=== PATIENT | female | born 1940 | race Caucasian/White ===

== ENCOUNTER 2017-04-12 00:36 | Inpatient (IN) | payer MEDICARE ==
[2017-04-12] VITALS (15 sets, daily range): BP systolic 125–202; BP diastolic 57–95; PULSE 66–148; RESP 16–30; TEMP 97.4–99.1; O2SAT 91–100
[~2017-04-12] VITALS: Ht 139.7 cm; Wt 90.5 kg
[~2017-04-12 00:36] MED LIST: ASPI81 PO; CLON-481 PO; GLIM2TAB PO; METO50TA PO; OMEP20CA5 PO; RALO1TAB13 PO; ROSU40 PO
[2017-04-12] MEDS ORDERED: RESP: ALBUTEROL 2.5 MG/3 ML NEB (SCH) INH ONE (01:00)
[2017-04-12] MEDS ORDERED: SODIUM CHLORID 0.9% 500 ML INJ 500 ML IV ONE (01:00)
[2017-04-12 01:24] LABS: AUTOMATED NEUTROPHIL # 5.4 TH/MM3 (1.8-7.7); BASOPHIL % 0.5 % (0.0-2.0); EOSINOPHIL % 0.1 % (0.0-4.0); HEMATOCRIT 41.8 % (35.0-46.0); HEMO FLAGS DIFF FINAL; LYMPH % 9.1 % (9.0-44.0); LYMPHOCYTE # 0.6 TH/MM3 (1.0-4.8); MEAN CELL VOLUME 92.4 FL (80.0-100.0); MEAN CORPUSCULAR HEMOGLOBIN 30.4 PG (27.0-34.0); MEAN CORPUSCULAR HGB CONC 32.9 % (32.0-36.0); MONO % 10.9 % (0.0-8.0); NEUT % 79.4 % (16.0-70.0); PLATELET COUNT 276 TH/MM3 (150-450); RED BLOOD COUNT 4.52 MIL/MM3 (4.00-5.30); RED CELL DISTRIBUTION WIDTH 15.1 % (11.6-17.2); WHITE BLOOD COUNT 6.9 TH/MM3 (4.0-11.0)
[2017-04-12 01:43] LABS: PROTHROMBIN TIME - PATIENT 10.6 SEC (9.8-11.6)
[2017-04-12 01:50] LABS: ALT (GPT) 19 U/L (10-53); ANION GAP 13 MEQ/L (5-15); AST (GOT) 30 U/L (15-37); BICARBONATE 19.2 MEQ/L (21.0-32.0); BLOOD UREA NITROGEN 16 MG/DL (7-18); CHLORIDE 104 MEQ/L (98-107); GLOMERULAR FILTRATION RATE 23 ML/MIN (>89); POTASSIUM 4.2 MEQ/L (3.5-5.1); SODIUM (NA) 136 MEQ/L (136-145)
[2017-04-12 01:51] LABS: ALKALINE PHOSPHATASE 80 U/L (45-117); TOTAL BILIRUBIN ADULT 0.5 MG/DL (0.2-1.0)
[2017-04-12] MEDS ORDERED: DILTIAZEM HCL 25 MG/5 ML VIAL IV PUSH ONE (02:00)
[2017-04-12] MEDS ORDERED: DILTIAZEM HCL 25 MG/5 ML VIAL IV ONE (02:30)
--- NOTE | 2017-04-12 02:34 | RADRPT ---
EXAM DATE/TIME: 04/12/2017 01:34 [place] COMPARISON: No previous studies available for comparison. INDICATIONS : Cough and congestion x 1 week. MEDICAL HISTORY : Diabetes mellitus type II. Hypercholesterolemia. Hypertension. Renal failure, 1 Kidney, Dialysis, CVA SURGICAL HISTORY : Bilateral carotid endardectomy ENCOUNTER: Initial ACUITY: 1 week PAIN SCORE: 6/10 LOCATION: Bilateral chest FINDINGS: PA and lateral views of the chest demonstrate the lungs to be symmetrically aerated without evidence of mass, infiltrate or effusion. The cardiomediastinal contours are unremarkable. Osseous structure s are intact. There are multiple overlying electrocardiogram leads and oxygen tubing. CONCLUSION: No acute disease. There is no evidence of pneumonia. Angelito Walker MD on April 12, 2017 at 2:32 Board Certified Radiologist. This report was verified electronically.
[2017-04-12] MEDS ORDERED: guaiFENesin/CODEINE SYRUP 200 MG/20 MG/10 ML CUP PO ONE (03:00)
[2017-04-12] MEDS ORDERED: SODIUM CHLOR 0.9% 1000 ML INJ 1,000 ML IV ONE (03:00)
[2017-04-12] MEDS: DILTIAZEM INJ 125 MG in SODIUM CHLORIDE 0.9% INJ 100 ML IV PRN ×3 (03:57→22:00)
--- NOTE | 2017-04-12 05:10 | PD ---
HPI Chief Complaint: Cold / Flu Symptoms Time Seen by Provider: 00:52 Travel History International Travel<30 days: No Contact w/Intl Traveler<30days: No Traveled to known affect area: No History of Present Illness HPI Patient is a 76-year-old female who comes in complaining of cough and shortness of breath. She says she has had a cough for the past week. She denies any fever. She says it's getting worse and she is having difficulty breathing. She denies any chest pain. She says she has not really been eating very much because she is coughing so hard that she vomits. She denies any recent travel. She denies any leg pain or swelling. She denies any history of blood clots. She has mostly been using cough drops without much relief. [facility] Past Medical History Asthma: No Blood Disorders: No Cancer: No Cardiac Catheterization: Yes (stent in neck) Cardiovascular Problems: Yes ("LEFT CAROTID STENT DONE BY ") High Cholesterol: Yes COPD: No Cerebrovascular Accident: Yes (LEFT SIDE WEAKNESS) Diabetes: Yes Patient Takes Glucophage: Yes Dialysis: Yes (TU,TR,SA) Diminished Hearing: No Endocrine: Yes Gastrointestinal Disorders: Yes GERD: Yes Glaucoma: No Genitourinary: Yes (ONLY 1 KIDNEY) Hepatitis: No Hiatal Hernia: No Hypertension: Yes Kidney Stones: Yes (LITHOTRIPSY) Musculoskeletal: No Psychiatric: No Respiratory: No Renal Failure: Yes (HEMODIALYSIS) Thyroid Disease: No Menopausal: Yes Past Surgical History Body Medical Devices: VAS CATH Cardiac Surgery: Yes (aniceto carotid endartectomy) Eye Surgery: Yes (CATARACT BILAT EYE) Genitourinary Surgery: Yes (INSERTION STENT LEFT KIDNEY; REMOVAL STENT) Pacemaker: No Other Surgery: Yes (BILATERAL CAROTID ENDARTERECTOMY.) Social History Alcohol Use: No Tobacco Use: No Substance Use: No Allergies-Medications (Allergen,Severity, Reaction): Coded Allergies: niacin (Unverified Allergy, Mild, HIVES, ITCHING, 04/12/17) adhesive (Unverified Allergy, Unknown, 04/12/17) alendronate sodium (Unverified Allergy, Unknown, 04/12/17) calcitonin (Unverified Allergy, Unknown, 04/12/17) Reported Meds & Prescriptions Reported Meds & Active Scripts Active Active Prescriptions or Reported Medications Unobtainable Review of Systems Except as stated in HPI: all other systems reviewed are Neg General / Constitutional: No: Fever, Chills HENT: No: Headaches, Lightheadedness Cardiovascular: No: Chest Pain or Discomfort Respiratory: Positive: Cough, Shortness of Breath Gastrointestinal: No: Nausea, Vomiting Genitourinary: No: Dysuria Musculoskeletal: No: Edema, Pain Neurologic: No: Weakness, Dizziness Physical Exam Narrative GENERAL: Awake and alert, in no acute distress. SKIN: Focused skin assessment warm/dry. HEAD: Atraumatic. Normocephalic. EYES: Pupils equal and round. No scleral icterus. ENT: Mucous membranes pink and moist. NECK: Trachea midline. No JVD. CARDIOVASCULAR: Tachycardia. No murmur appreciated. RESPIRATORY: Mild tachypnea. Clear to auscultation. Breath sounds equal bilaterally. GASTROINTESTINAL: Abdomen soft, non-tender, nondistended. MUSCULOSKELETAL: No obvious deformities. No clubbing. No cyanosis. No edema. No calf tenderness. NEUROLOGICAL: Awake and alert. No obvious cranial nerve deficits. Motor grossly within normal limits. Normal speech. PSYCHIATRIC: Appropriate mood and affect; insight and judgment normal. Data Data Last Documented VS Vital Signs Date Time Temp Pulse Resp B/P (MAP) Pulse Ox O2 Delivery O2 Flow Rate FiO2 04/12/17 05:09 130 28 168/72 (104) 96 Nasal Cannula 3.00 04/12/17 00:42 97.4 Orders Orders Complete Blood Count With Diff (04/12/17 00:56) Comprehensive Metabolic Panel (04/12/17 00:56) B-Type Natriuretic Peptide (04/12/17 00:56) Act Partial Throm Time (Ptt) (04/12/17 00:56) Prothrombin Time / Inr (Pt) (04/12/17 00:56) Troponin I (04/12/17 00:56) Iv Access Insert/Monitor (04/12/17 00:56) Electrocardiogram (04/12/17 00:56) Ecg Monitoring (04/12/17 00:56) Oximetry (04/12/17 00:56) Oxygen Administration (04/12/17 00:56) Chest, Pa & Lat (04/12/17 00:56) Sodium Chloride 0.9% Flush (Ns Flush) (04/12/17 01:00) Albuterol Neb (Albuterol Neb) (04/12/17 01:00) Sodium Chlorid 0.9% 500 Ml Inj (Ns 500 M (04/12/17 01:00) Diltiazem Inj (Cardizem Inj) (04/12/17 02:00) Diltiazem Inj (Cardizem Inj) (04/12/17 02:30) Sodium Chlor 0.9% 1000 Ml Inj (Ns 1000 M (04/12/17 03:00) Guaifen-Cod 200-20 Mg/10ml Liq (Robituss (04/12/17 03:00) Vital Signs (Adult) Q15MX4,Q4H (04/12/17 03:01) Cook Helper Dessert / Telemetry ALBERTO.Q8H (04/12/17 03:01) Cardiac Rhythm ALBERTO.Q8H (04/12/17 03:01) Notify Dr: Other (04/12/17 03:01) Diltiazem Inj (Cardizem Inj) (04/12/17 03:15) Ventilation & Perfusion Scan (04/12/17 ) Admit Order (Ed Use Only) (04/12/17 ) Digoxin Inj (Lanoxin Inj) (04/12/17 09:00) Enoxaparin Inj (Lovenox Inj) (04/12/17 05:30) Labs Laboratory Tests Test 04/12/17 01:10 White Blood Count 6.9 TH/MM3 Red Blood Count 4.52 MIL/MM3 Hemoglobin 13.7 GM/DL Hematocrit 41.8 % Mean Corpuscular Volume 92.4 FL Mean Corpuscular Hemoglobin 30.4 PG Mean Corpuscular Hemoglobin Concent 32.9 % Red Cell Distribution Width 15.1 % Platelet Count 276 TH/MM3 Mean Platelet Volume 7.7 FL Neutrophils (%) (Auto) 79.4 % Lymphocytes (%) (Auto) 9.1 % Monocytes (%) (Auto) 10.9 % Eosinophils (%) (Auto) 0.1 % Basophils (%) (Auto) 0.5 % Neutrophils # (Auto) 5.4 TH/MM3 Lymphocytes # (Auto) 0.6 TH/MM3 Monocytes # (Auto) 0.7 TH/MM3 Eosinophils # (Auto) 0.0 TH/MM3 Basophils # (Auto) 0.0 TH/MM3 CBC Comment DIFF FINAL Differential Comment Prothrombin Time 10.6 SEC Prothromb Time International Ratio 1.0 RATIO Activated Partial Thromboplast Time 26.0 SEC Blood Urea Nitrogen 16 MG/DL Creatinine 2.05 MG/DL Random Glucose 121 MG/DL Total Protein 8.5 GM/DL Albumin 3.5 GM/DL Calcium Level 8.8 MG/DL Alkaline Phosphatase 80 U/L Aspartate Amino Transf (AST/SGOT) 30 U/L Alanine Aminotransferase (ALT/SGPT) 19 U/L Total Bilirubin 0.5 MG/DL Sodium Level 136 MEQ/L Potassium Level 4.2 MEQ/L Chloride Level 104 MEQ/L Carbon Dioxide Level 19.2 MEQ/L Anion Gap 13 MEQ/L Estimat Glomerular Filtration Rate 23 ML/MIN Troponin I 0.03 NG/ML B-Type Natriuretic Peptide 73 PG/ML [facility] Medical Decision Making Medical Screen Exam Complete: Yes Emergency Medical Condition: Yes Medical Record Reviewed: Yes Interpretation(s) ECG shows sinus tachycardia at 144 possible atrial flutter Differential Diagnosis PE versus pneumonia versus URI versus a flutter with RVR versus electrolyte abnormality Narrative Course Patient is a 76-year-old female comes in complaining of cough and shortness of breath. She is found to be very tachycardic. IV established, labs sent. Labs show a creatinine of 2.05, this is old. Chest x-ray performed shows no acute abnormalities. Patient given IV fluids. She had no improvement of her tachycardia. Given a dose of Cardizem with mild improvement of her tachycardia. Given second dose and started on a drip. She was also given a dose of guaifenesin with codeine. This helped her cough, but tachycardia persisted. Patient will require rule out for PE. VQ scan ordered. I spoke with Dr. Carey regarding the patient who suggests covering her with Lovenox and giving her dose of digoxin. Patient admitted for further management. Diagnosis Primary Impression: Tachycardia Additional Impression: Cough Admitting Information Admitting Physician Requests: Admit Scripts Unable to Obtain Active Prescriptions or Reported Meds Sharron Martinez MD Apr 12, 2017 05:10
[2017-04-12] MEDS ORDERED: ENOXAPARIN SODIUM 40 MG/0.4 ML SYRINGE SQ ONE (05:30)
[2017-04-12] MEDS ORDERED: cefTRIAXone INJ 1,000 MG in SODIUM CHLORIDE 0.9% INJ 100 ML IV ONE (07:30)
[2017-04-12] MEDS ORDERED: ASPI81CH CHEW (07:58)
[2017-04-12] MEDS ORDERED: GLIM2TAB PO (07:58)
[2017-04-12] MEDS ORDERED: CLON0.3T PO (07:58)
[2017-04-12] MEDS ORDERED: RALO1TAB PO (07:58)
[2017-04-12] MEDS ORDERED: ROSU1TAB10 PO (07:58)
[2017-04-12] MEDS ORDERED: VITA1000 PO (07:58)
[2017-04-12] MEDS ORDERED: METO25TA3 PO (07:58)
--- NOTE | 2017-04-12 07:59 | HHI.HP ---
HPI Service [facility] Hospitalists Primary Care Physician Reginaldo Carey MD, PhD Admission Diagnosis Tachycardia, r/o PE, tachypnea Chief Complaint: SOB, cough Travel History International Travel<30 Days: No Contact w/Intl Traveler <30 Da: No Traveled to Known Affected Are: No Sepsis Criteria Multiple Organ Dysfunction Syn: Evidence -2 organs failing History of Present Illness Ms. Gary is a pleasant 76 y/o WF with HTN, hyperlipidemia, diabetes and CKD stage 4, who [place] [facility] with complaints of worsening SOB and cough. She reports that around 1 week ago she developed sinus congestion, runny nose and a nonproductive cough. This progressively worsened over the last week and she has been feeling more SOB. Her cough has been worsening to the point where she is dry heaving when she coughs. She has not been eating much but has been drinking plenty of fluids. She denies any cough related to food or fluid intake or any difficulty swallowing. She has tried OTC Mucinex and cough drops without any relief. She denies any fevers or chills. Her cough and SOB worsened yesterday and this prompted her to go to the ED for further evaluation. In the ED she was noted to be tachycardic with HR in the 130 -140s upon arrival. Pt was given IV Cardizem with some improvement but her tachycardia did not resolve and she was started on Cardizem gtt. She appears to be in sinus tachycardia on telemetry. She normally takes Metoprolol 25mg po BID at home and states that she has not missed any doses. Her labs in the ED noted a normal WBC count of 6, BNP was 73. Her Cr is slightly higher than her baseline which has been around 1.7 to 1.8 for the last several months. CXR did not reveal any acute cardio or pulmonary disease. She denies any chest pain, palpitations, fevers/chills, dizziness, weakness. She has a hx of tobacco use, smoked 1/2ppd x 45 years, but denies any diagnosis of COPD. Denies any hx of CHF or CAD. Review of Systems Constitutional: DENIES: Diaphoretic episodes, Fever, Chills, Dizziness Eyes: DENIES: Vision loss Ears, nose, mouth, throat: COMPLAINS OF: Running Nose, Sinus Pain, DENIES: Hearing loss Respiratory: COMPLAINS OF: Cough, Shortness of breath, DENIES: Sputum production Cardiovascular: DENIES: Chest pain, Palpitations, Dyspnea on Exertion, Lower Extremity Edema Gastrointestinal: DENIES: Abdominal pain, Diarrhea, Nausea, Vomiting Genitourinary: DENIES: Urinary incontinence, Urgency, Hematuria Musculoskeletal: DENIES: Back pain, Neck pain Integumentary: DENIES: Rash Neurologic: DENIES: Headache Psychiatric: DENIES: Confusion Past Family Social History Past Medical History HTN Hyperlipidemia Diabetes mellitus, type 2 CKD, stage 4, previous hx of HD x 1 year 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 GERD Rosacea 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 Pelvic mass (9x4.0x3.7cm in 2009, declined followup or any treatment regarding this) 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 Vitamin D deficiency Past Surgical History Bilateral Carotid endarterectomy, 1995, 1997 Bilateral cataract surgery Cystoscopy for stent placement and removal D&C Reported Medications -ASA 81Mg PO DAILY -Clonidine 0.3Mg PO DAILY -Amaryl 2Mg PO DAILY -Metoprolol 25Mg PO BID -Raloxifene HCl 60Mg PO DAILY -Rosuvastatin 40Mg PO DAILY -Vit D 2,000Units PO DAILY Allergies: Coded Allergies: niacin (Unverified Allergy, Mild, HIVES, ITCHING, 04/12/17) adhesive (Unverified Allergy, Unknown, 04/12/17) alendronate sodium (Unverified Allergy, Unknown, 04/12/17) calcitonin (Unverified Allergy, Unknown, 04/12/17) Family History Noncontributory Social History Hx of tobacco use, quit in 1994, smoked less than 1/2ppd x 45 years Hx of heavy alcohol use Pt never Pt originally from [place], moved to around age 6, lived in [place] until 1971 when she moved to [place] Physical Exam Vital Signs Vital Signs Date Time Temp Pulse Resp B/P (MAP) Pulse Ox O2 Delivery O2 Flow Rate FiO2 04/12/17 07:25 97.8 112 20 146/67 (93) 99 Nasal Cannula 3.00 04/12/17 06:47 112 22 151/67 (95) 99 Nasal Cannula 3.00 04/12/17 05:09 130 28 168/72 (104) 96 Nasal Cannula 3.00 04/12/17 04:36 130 30 156/70 (98) 98 Nasal Cannula 2.00 04/12/17 03:57 138 165/74 04/12/17 02:39 133 29 175/73 (107) 97 Nasal Cannula 2.00 04/12/17 02:15 139 28 193/87 (122) 100 Nasal Cannula 2.00 04/12/17 01:05 96 Nasal Cannula 2.00 04/12/17 00:59 138 33 91 Nasal Cannula 2.00 04/12/17 00:42 97.4 148 16 202/95 (130) 92 Room Air Physical Exam GENERAL: This is a well-nourished, well-developed patient, in no apparent distress. SKIN: No rashes, ecchymoses or lesions. Cool and dry. HEENT: Atraumatic. Normocephalic. No temporal or scalp tenderness. No scleral icterus. Airway patent. NECK: Trachea midline, supple, nontender CARDIO: Regular, tachy. RESP: Coarse breath sounds bilaterally. ABD: +BS, soft, non-tender, nondistended. EXT: Extremities without clubbing, cyanosis, or edema. NEURO: Awake and alert. Motor and sensory grossly within normal limits. Normal speech. Laboratory Laboratory Tests Test 04/12/17 01:10 White Blood Count 6.9 Red Blood Count 4.52 Hemoglobin 13.7 Hematocrit 41.8 Mean Corpuscular Volume 92.4 Mean Corpuscular Hemoglobin 30.4 Mean Corpuscular Hemoglobin Concent 32.9 Red Cell Distribution Width 15.1 Platelet Count 276 Mean Platelet Volume 7.7 Neutrophils (%) (Auto) 79.4 Lymphocytes (%) (Auto) 9.1 Monocytes (%) (Auto) 10.9 Eosinophils (%) (Auto) 0.1 Basophils (%) (Auto) 0.5 Neutrophils # (Auto) 5.4 Lymphocytes # (Auto) 0.6 Monocytes # (Auto) 0.7 Eosinophils # (Auto) 0.0 Basophils # (Auto) 0.0 CBC Comment DIFF FINAL Differential Comment Prothrombin Time 10.6 Prothromb Time International Ratio 1.0 Activated Partial Thromboplast Time 26.0 Blood Urea Nitrogen 16 Creatinine 2.05 Random Glucose 121 Total Protein 8.5 Albumin 3.5 Calcium Level 8.8 Alkaline Phosphatase 80 Aspartate Amino Transf (AST/SGOT) 30 Alanine Aminotransferase (ALT/SGPT) 19 Total Bilirubin 0.5 Sodium Level 136 Potassium Level 4.2 Chloride Level 104 Carbon Dioxide Level 19.2 Anion Gap 13 Estimat Glomerular Filtration Rate 23 Troponin I 0.03 B-Type Natriuretic Peptide 73 Result Diagram: 04/12/1710904/12/17109 Imaging Last Impressions Chest X-Ray 04/12/17 005 Signed Impressions: Service Date/Time: Friday, April 12, 2017 01:34 - CONCLUSION: No acute disease. There is no evidence of pneumonia. Angelito Walker MD Septic Shock Reassessment Heart: Other Lungs: Course Skin: Warm Caprini VTE Risk Assessment Caprini VTE Risk Assessment: Mod/High Risk (score >= 2) Caprini Risk Assessment Model Point Value = 1 Point Value = 2 Point Value = 3 Point Value = 5 Age 41-60 Minor surgery BMI > 25 kg/m2 Swollen legs Varicose veins or History of unexplained or recurrent spontaneous Oral contraceptives or hormone replacement Sepsis (< 1 month) Serious lung disease, including pneumonia (< 1 month) Abnormal pulmonary function Acute myocardial infarction Congestive heart failure (< 1 month) History of inflammatory bowel disease Medical patient at bed rest Age 61-74 Arthroscopic surgery Major open surgery (> 45 min) Laparoscopic surgery (> 45 min) Malignancy Confined to bed (> 72 hours) Immobilizing plaster cast Central venous access Age >= 75 History of VTE Family history of VTE Factor V Leiden Prothrombin [id number] Lupus anticoagulant Anticardiolipin antibodies Elevated serum homocysteine Heparin-induced thrombocytopenia Other congenital or acquired thrombophilia Stroke (< 1 month) Elective arthroplasty Hip, pelvis, or leg fracture Acute spinal cord injury (< 1 month) Prophylaxis Regimen Total Risk Factor Score Risk Level Prophylaxis Regimen 0-1 Low Early ambulation 2 Moderate Order ONE of the following: *Sequential Compression Device (SCD) *Heparin 5000 units SQ BID 3-4 Higher Order ONE of the following medications: *Heparin 5000 units SQ TID *Enoxaparin/Lovenox 40 mg SQ daily (WT < 150 kg, CrCl > 30 mL/min) *Enoxaparin/Lovenox 30 mg SQ daily (WT < 150 kg, CrCl > 10-29 mL/min) *Enoxaparin/Lovenox 30 mg SQ BID (WT < 150 kg, CrCl > 30 mL/min) AND/OR *Sequential Compression Device (SCD) 5 or more Highest Order ONE of the following medications: *Heparin 5000 units SQ TID (Preferred with Epidurals) *Enoxaparin/Lovenox 40 mg SQ daily (WT < 150 kg, CrCl > 30 mL/min) *Enoxaparin/Lovenox 30 mg SQ daily (WT < 150 kg, CrCl > 10-29 mL/min) *Enoxaparin/Lovenox 30 mg SQ BID (WT < 150 kg, CrCl > 30 mL/min) AND *Sequential Compression Device (SCD) Assessment and Plan Problem List: (1) SOB (shortness of breath) ICD Codes: R06.02 - Shortness of breath Status: Acute Plan: - Pt is a 76 y/o WF with HTN, hyperlipidemia, diabetes and CKD stage 4, who [place] [facility] with complaints of worsening SOB and cough x 1 week. - Pt initially developed sinus congestion, runny nose and a nonproductive cough. This progressively worsened over the last week and she has been feeling more SOB. She has tried OTC Mucinex and cough drops without any relief. - In the ED she was noted to be tachycardic with HR in the 130-140s upon arrival. Pt was given IV Cardizem with some improvement but her tachycardia did not resolve and she was started on Cardizem gtt. She appears to have sinus tachycardia on telemetry. She normally takes Metoprolol 25mg po BID at home and states that she has not missed any doses. - Her labs in the ED noted a normal WBC count of 6, BNP was 73. Her Cr is slightly higher than her baseline which has been around 1.7 to 1.8 for the last several months. - CXR did not reveal any acute cardio or pulmonary disease. No pneumonia boted - She has hx of tobacco use but no formal diagnosis of COPD. - At this point it is felt that the pt may be having a COPD flare which initially started with an URI infection. - Start IV Solu-Medrol 125mg then 60mg Q6H - Ipratropium nebs Q4H - Pt could not tolerate the oral Mucinex pills as an outpt, we will try Mucomyst nebs - Sputum culture - Rocephin ordered in the ED, we will continue this - VQ scan was ordered in the ED - Check 2D echo as well - CXR in AM - Zofran PRN - May consider Robitussin AC if cough continues and pt unable to produce a sputum sample. - DVT prophylaxis with Lovenox (2) Tachycardia ICD Codes: R00.0 - Tachycardia, unspecified Status: Acute Plan: - Pt does not have any hx of A. fib or A. flutter - She appears to be in sinus tach on telemetry, likely related to her acute respiratory issues - Pt was started on Cardizem gtt in the ED currently at 15mg - Resume the pts home dose of Metoprolol 25mg po BID - Try to wean off the Cardizem gtt - Check 2D echo - Telemetry (3) Cough ICD Codes: R05 - Cough Status: Acute Plan: - See above. (4) HTN (hypertension) ICD Codes: I10 - Essential (primary) hypertension Status: Chronic Plan: - Cont. Metoprolol - Pt also takes scheduled clonidine, hold this - Clonidine PRN - Monitor (5) Diabetes ICD Codes: E11.9 - Type 2 diabetes mellitus without complications Status: Chronic Plan: - NovoLog SSI - Accu checks (6) CKD (chronic kidney disease) stage 4, GFR 15-29 ml/min ICD Codes: N18.4 - Chronic kidney disease, stage 4 (severe) Status: Chronic Plan: - Pt with stage 4 CKD, follows with Dr. Miller. - Pts renal function is slightly higher than baseline - Gentle IVF - Monitor labs (7) Hyperlipidemia ICD Codes: E78.5 - Hyperlipidemia, unspecified Status: Chronic Physician Certification 2 Midnight Certification Type: Admission for Inpatient Services Order for Inpatient Services The services are ordered in accordance with Medicare regulations or non- Medicare payer requirements, as applicable. In the case of services not specified as inpatient-only, they are appropriately provided as inpatient services in accordance with the 2-midnight benchmark. Estimated LOS (days): 3 3 days is the estimated time the patient will need to remain in the hospital, assuming treatment plan goals are met and no additional complications. Post-Hospital Plan: Not yet determined Problem Qualifiers (1) Diabetes: Kathrine Barajas Apr 12, 2017 07:59
[2017-04-12] MEDS ORDERED: DIGOXIN 0.5 MG/2 ML VIAL IV PUSH SCH (09:00)
[2017-04-12] MEDS: SODIUM CHLORIDE 0.9% FLUSH 10 ML FLUSH IVF PRN (09:12)
[2017-04-12] MEDS: ASPIRIN 81 MG CHEW TAB CHEW SCH (09:14)
[2017-04-12] MEDS ORDERED: methylPREDNISolone SOD SUCC 125 MG/2 ML VIAL IV PUSH ONE (09:15)
[2017-04-12] MEDS: METOPROLOL TARTRATE 25 MG TAB PO SCH ×2 (09:15→21:00)
[2017-04-12] MEDS: ATORVASTATIN 80 MG TAB PO SCH (09:15)
[2017-04-12] MEDS ORDERED: ONDANSETRON HCL 4 MG/2 ML VIAL IV PRN ×2 (09:45→16:30)
[2017-04-12] MEDS ORDERED: ACETAMINOPHEN 325 MG TAB PO PRN (09:45)
[2017-04-12] MEDS ORDERED: SODIUM CHLOR 0.9% 1000 ML INJ 1,000 ML IV SCH (10:00)
[2017-04-12] MEDS ORDERED: LOSA25TA PO (10:55)
[2017-04-12] MEDS: RESP: IPRATROPIUM 0.5 MG/2.5 ML NEB NEB SCH ×3 (12:21→21:05)
[2017-04-12] MEDS: RESP: ACETYLCYSTEINE 20% 30 ML NEB NEB SCH ×3 (12:22→21:05)
[2017-04-12] MEDS: INSULIN ASPART SUPPLEMENTAL SCALE SQ SCH ×3 (12:27→21:00)
[2017-04-12] MEDS: LEVOFLOXACIN 250 MG PREMIX INJ 50 ML IV SCH (14:01)
--- NOTE | 2017-04-12 15:29 | ECHRPT ---
Indication: Shortness of breath CONCLUSIONS The left ventricular systolic function is low normal with an estimated ejection fraction in the rang e of 50- 55%. Normal left ventricular size. Wall thickness is normal. No regional wall motion abnormalities are present. Doppler parameters are consistent with impaired left ventricular relaxtion (grade 1 diastolic dysfun ction). Trace mitral valve regurgitation. The aortic valve is not well visualized. The tricuspid valve is not well visualized. There is trace tricuspid valve regurgitation. The estimated pulmonary arterial pressure is 48.7 mmHg. BP: 125 / 65 HR: 85 Rhythm: Sinus MEASUREMENTS (Male / Female) Normal Values Technical Quality:Very technically difficult study 2D ECHO LV Diastolic Diameter PLAX 3.6 cm 4.2 - 5.9 / 3.9 - 5.3 cm LV Systolic Diameter PLAX 2.6 cm IVS Diastolic Thickness 0.8 cm 0.6 - 1.0 / 0.6 - 0.9 cm LVPW Diastolic Thickness 0.8 cm 0.6 - 1.0 / 0.6 - 0.9 cm LV Relative Wall Thickness 0.4 LVOT Diameter 1.7 cm M-MODE Aortic Root Diameter MM 2.5 cm AV Cusp Separation MM 1.4 cm DOPPLER AV Peak Velocity 166.0 cm/s AV Peak Gradient 11.0 mmHg LVOT Peak Velocity 96.3 cm/s LVOT Peak Gradient 3.7 mmHg AV Area Cont Eq pk 1.3 cm MV Area PHT 3.5 cm Mitral E Point Velocity 115.5 cm/s Mitral A Point Velocity 146.5 cm/s Mitral E to A Ratio 0.8 LV E' Lateral Velocity 6.8 cm/s Mitral E to LV E' Lateral Ratio 16.9 LV E' Septal Velocity 5.8 cm/s Mitral E to LV E' Septal Ratio 20.1 TR Peak Velocity 311.0 cm/s TR Peak Gradient 38.7 mmHg Right Atrial Pressure 10.0 mmHg Pulmonary Artery Systolic Pressu 48.7 mmHg Right Ventricular Systolic Press 48.7 mmHg FINDINGS LEFT VENTRICLE The left ventricular systolic function is low normal with an estimated ejection fraction in the rang e of 50- 55%. Normal left ventricular size. Wall thickness is normal. No regional wall motion abnormalities are present. Doppler parameters are consistent with impaired left ventricular relaxtion (grade 1 diastolic dysfun ction). MITRAL VALVE Structurally normal mitral valve. Trace mitral valve regurgitation. AORTIC VALVE The aortic valve is not well visualized. TRICUSPID VALVE The tricuspid valve is not well visualized. There is trace tricuspid valve regurgitation. The estimated pulmonary arterial pressure is 48.7 mmHg. Orlando Lopez MD (Electronically Signed) Final Date:12 April 2017 15:28
[2017-04-12] MEDS: methylPREDNISolone SOD SUCC 125 MG/2 ML VIAL IV PUSH SCH ×2 (16:16→21:00)
[2017-04-12] MEDS ORDERED: PANTOPRAZOLE SODIUM 40 MG VIAL IV PUSH ONE (16:30)
[2017-04-12] MEDS ORDERED: ALUMINUM/MAGNESIUM/SIMETH 30 ML CUP PO ONE (16:30)
[2017-04-12] MEDS ORDERED: PROMETHAZINE INJ 25 MG/ML VIAL IM PRN (16:30)
[2017-04-12] MEDS ORDERED: ALUMINUM/MAGNESIUM/SIMETH 30 ML CUP PO PRN (16:30)
--- NOTE | 2017-04-12 17:14 | EKG ---
Date Performed: 04/12/2017 Time Performed: 01:02:19 PTAGE: 76 years EKG: SINUS TACHYCARDIA, POSSIBLE ATRIAL FLUTTER INDETERMINATE AXIS MINIMAL ST DEPRESSION ABNORMA L ECG PREVIOUS TRACING : 04/12/2017 01.00 Compared to previous tracing Alutter/yoliy is new DOCTOR: Tiffanie Oglesby Interpretating Date/Time 04/12/2017 17:12:45
[2017-04-13] VITALS (17 sets, daily range): BP systolic 133–157; BP diastolic 64–86; PULSE 80–116; RESP 19–21; TEMP 97.6–98.9; O2SAT 92–98
[2017-04-13] MEDS: RESP: IPRATROPIUM 0.5 MG/2.5 ML NEB NEB SCH ×6 (00:15→20:56)
[2017-04-13] MEDS: RESP: ACETYLCYSTEINE 20% 30 ML NEB NEB SCH ×6 (00:15→20:56)
[2017-04-13] MEDS: methylPREDNISolone SOD SUCC 125 MG/2 ML VIAL IV PUSH SCH ×4 (03:00→21:13)
--- NOTE | 2017-04-13 05:58 | RADRPT ---
EXAM DATE/TIME: 04/13/2017 05:41 [facility] COMPARISON: CHEST PA & LAT, April 12, 2017, 1:34. INDICATIONS : Cough and congestion x 1 week, Shortness of breath MEDICAL HISTORY : Diabetes mellitus type II. Hypercholesterolemia. Hypertension. Renal Failure, 1 Kidney, Dialysis, CVA SURGICAL HISTORY : Bilateral Carotid Endardectomy ENCOUNTER: Subsequent ACUITY: 1 week PAIN SCORE: 6/10 LOCATION: Bilateral chest FINDINGS: PA and lateral views of the chest demonstrate the lungs to be symmetrically aerated without evidence of mass, infiltrate or effusion. The cardiomediastinal contours are unremarkable. Osseous structure s are intact. There are multiple overlying electrocardiogram leads. CONCLUSION: No acute disease. There is no evidence of pneumonia. Angelito Walker MD on April 13, 2017 at 5:56 Board Certified Radiologist. This report was verified electronically.
[2017-04-13 06:30] LABS: BICARBONATE 17.4 MEQ/L (21.0-32.0); POTASSIUM 4.2 MEQ/L (3.5-5.1)
[2017-04-13 07:08] LABS: AUTOMATED NEUTROPHIL # 7.7 TH/MM3 (1.8-7.7); BASOPHIL % 0.1 % (0.0-2.0); HEMATOCRIT 36.4 % (35.0-46.0); HEMO FLAGS DIFF FINAL; LYMPH % 3.6 % (9.0-44.0); LYMPHOCYTE # 0.3 TH/MM3 (1.0-4.8); MEAN CELL VOLUME 93.7 FL (80.0-100.0); MEAN CORPUSCULAR HEMOGLOBIN 30.9 PG (27.0-34.0); MEAN CORPUSCULAR HGB CONC 32.9 % (32.0-36.0); MONO % 3.1 % (0.0-8.0); NEUT % 93.2 % (16.0-70.0); PLATELET COUNT 183 TH/MM3 (150-450); RED BLOOD COUNT 3.88 MIL/MM3 (4.00-5.30); RED CELL DISTRIBUTION WIDTH 15.2 % (11.6-17.2); WHITE BLOOD COUNT 8.2 TH/MM3 (4.0-11.0)
[2017-04-13] MEDS: INSULIN ASPART SUPPLEMENTAL SCALE SQ SCH ×4 (08:00→21:00)
[2017-04-13] MEDS: RALOXIFENE HCL 60 MG TAB PO SCH (08:56)
[2017-04-13] MEDS: PANTOPRAZOLE SODIUM 40 MG VIAL IV PUSH SCH ×2 (08:56→21:10)
[2017-04-13] MEDS: ASPIRIN 81 MG CHEW TAB CHEW SCH (08:56)
[2017-04-13] MEDS: ATORVASTATIN 80 MG TAB PO SCH (08:57)
[2017-04-13] MEDS: METOPROLOL TARTRATE 25 MG TAB PO SCH (08:57)
[2017-04-13] MEDS ORDERED: METOPROLOL TARTRATE 25 MG TAB PO ONE (09:45)
--- NOTE | 2017-04-13 09:45 | HHI.PR ---
Subjective Remarks feeling a little better. Objective Vitals heart reg lung course bs/rhonci abd s/nt ext no edema Vital Signs Date Time Temp Pulse Resp B/P (MAP) Pulse Ox O2 Delivery O2 Flow Rate FiO2 04/13/17 07:40 89 04/13/17 07:39 95 Nasal Cannula 3.00 04/13/17 07:38 98.5 89 20 139/68 (91) 95 04/13/17 07:22 94 Nasal Cannula 3.00 04/13/17 03:00 95 Nasal Cannula 3.00 04/13/17 03:00 98.2 88 20 133/71 (91) 95 04/13/17 03:00 90 04/12/17 23:00 90 04/12/17 23:00 92 Nasal Cannula 3.00 04/12/17 23:00 95 135/71 04/12/17 23:00 97.9 95 20 135/71 (92) 92 04/12/17 22:30 95 Nasal Cannula 3.00 04/12/17 22:00 121 142/72 04/12/17 19:00 108 04/12/17 19:00 95 Nasal Cannula 3.00 04/12/17 19:00 108 142/72 04/12/17 19:00 98.4 108 20 142/72 (95) 95 04/12/17 18:00 109 04/12/17 15:00 99.1 102 20 157/57 (90) 91 04/12/17 15:00 97 04/12/17 13:42 93 178/69 04/12/17 13:30 92 147/76 04/12/17 12:25 94 Nasal Cannula 2.00 04/12/17 11:00 98.7 66 20 125/65 (85) 95 04/12/17 11:00 69 Result Diagram: 04/13/17 0516 04/13/17 0516 Imaging Last Impressions Chest X-Ray 04/12/17 0056 Signed Impressions: Service Date/Time: Wednesday, April 12, 2017 01:34 - CONCLUSION: No acute disease. There is no evidence of pneumonia. Angelito Walker MD A/P Problem List: (1) SOB (shortness of breath) ICD Codes: R06.02 - Shortness of breath Status: Acute Plan: - Pt is a 76 y/o WF with HTN, hyperlipidemia, diabetes and CKD stage 4, who presented to the ED at [facility] [place] on 04/12/17 with complaints of worsening SOB and cough x 1 week. - Pt initially developed sinus congestion, runny nose and a nonproductive cough. This progressively worsened over the last week and she has been feeling more SOB. She has tried OTC Mucinex and cough drops without any relief. - In the ED she was noted to be tachycardic with HR in the 130-140s upon arrival. Pt was given IV Cardizem with some improvement but her tachycardia did not resolve and she was started on Cardizem gtt. She appears to have sinus tachycardia on telemetry. She normally takes Metoprolol 25mg po BID at home and states that she has not missed any doses. - Her labs in the ED noted a normal WBC count of 6, BNP was 73. Her Cr is slightly higher than her baseline which has been around 1.7 to 1.8 for the last several months. - CXR did not reveal any acute cardio or pulmonary disease. No pneumonia noted - She has hx of tobacco use but no formal diagnosis of COPD. - At this point it is felt that the pt may be having a COPD flare which initially started with an URI infection. - currently with sinus tach but much improved cont solumedrol, nebs and abx stop ivf wean cardizem to off. increase her bb dvt prophylaxis f/u echo - DVT prophylaxis with Lovenox (2) Tachycardia ICD Codes: R00.0 - Tachycardia, unspecified Status: Acute Plan: - Pt does not have any hx of A. fib or A. flutter - She appears to be in sinus tach on telemetry, likely related to her acute respiratory issues - Pt was started on Cardizem gtt in the ED currently at 15mg - Resume the pts home dose of Metoprolol 25mg po BID - Try to wean off the Cardizem gtt - Check 2D echo - Telemetry (3) Cough ICD Codes: R05 - Cough Status: Acute Plan: - See above. (4) HTN (hypertension) ICD Codes: I10 - Essential (primary) hypertension Status: Chronic Plan: - Cont. Metoprolol - Pt also takes scheduled clonidine, hold this - Clonidine PRN - Monitor (5) Diabetes ICD Codes: E11.9 - Type 2 diabetes mellitus without complications Status: Chronic Plan: - NovoLog SSI - Accu checks (6) CKD (chronic kidney disease) stage 4, GFR 15-29 ml/min ICD Codes: N18.4 - Chronic kidney disease, stage 4 (severe) Status: Chronic Plan: - Pt with stage 4 CKD, follows with Dr. Miller. - Pts renal function is slightly higher than baseline - Gentle IVF - Monitor labs (7) Hyperlipidemia ICD Codes: E78.5 - Hyperlipidemia, unspecified Status: Chronic Problem Qualifiers (1) Diabetes: Nicholas Davis MD Apr 13, 2017 09:45
[2017-04-13] MEDS: PNEUMOCOCCAL POLYVALENT INJ 25 MCG/0.5 ML SYR IM ONE (10:00)
[2017-04-13] MEDS: INFLUENZA VIRUS VACCINE (QUADRIVALENT) 0.5 ML SYR IM ONE (10:00)
[2017-04-13] MEDS ORDERED: cefTRIAXone INJ 1,000 MG in SODIUM CHLORIDE 0.9% INJ 100 ML IV SCH (10:00)
[2017-04-13] MEDS: ENOXAPARIN SODIUM 30 MG/0.3 ML SYRINGE SQ SCH (10:00)
[2017-04-13] MEDS: LEVOFLOXACIN 250 MG PREMIX INJ 50 ML IV SCH (16:04)
[2017-04-13] MEDS: SODIUM CHLORIDE 0.9% FLUSH 10 ML FLUSH IVF PRN (21:15)
[2017-04-13] MEDS: METOPROLOL TARTRATE 50 MG TAB PO SCH (21:15)
[2017-04-14] VITALS (31 sets, daily range): BP systolic 145–158; BP diastolic 62–85; PULSE 70–114; RESP 18–24; TEMP 97.2–97.7; O2SAT 92–100
[2017-04-14] MEDS: RESP: IPRATROPIUM 0.5 MG/2.5 ML NEB NEB SCH ×7 (00:08→23:27)
[2017-04-14] MEDS: RESP: ACETYLCYSTEINE 20% 30 ML NEB NEB SCH ×7 (00:08→23:27)
[2017-04-14] MEDS: methylPREDNISolone SOD SUCC 125 MG/2 ML VIAL IV PUSH SCH ×3 (02:35→14:03)
[2017-04-14 07:22] LABS: BICARBONATE 18.5 MEQ/L (21.0-32.0); POTASSIUM 4.7 MEQ/L (3.5-5.1)
[2017-04-14] MEDS: INSULIN ASPART SUPPLEMENTAL SCALE SQ SCH ×4 (08:53→21:00)
[2017-04-14] MEDS: PANTOPRAZOLE SODIUM 40 MG VIAL IV PUSH SCH ×2 (08:54→20:50)
[2017-04-14] MEDS: ATORVASTATIN 80 MG TAB PO SCH (08:55)
[2017-04-14] MEDS: RALOXIFENE HCL 60 MG TAB PO SCH (08:55)
[2017-04-14] MEDS: ASPIRIN 81 MG CHEW TAB CHEW SCH (08:55)
[2017-04-14] MEDS: METOPROLOL TARTRATE 50 MG TAB PO SCH ×2 (08:56→20:50)
[2017-04-14] MEDS: ENOXAPARIN SODIUM 30 MG/0.3 ML SYRINGE SQ SCH (09:08)
[2017-04-14] MEDS: LEVOFLOXACIN 250 MG PREMIX INJ 50 ML IV SCH (13:57)
--- NOTE | 2017-04-14 16:40 | HHI.PR ---
Subjective Remarks Pt overall very weak but feels that her breathing is improving She is down to 2L of supplemental O2 HR stable in the high 90's to low 100's Objective Vitals Vital Signs Date Time Temp Pulse Resp B/P (MAP) Pulse Ox O2 Delivery O2 Flow Rate FiO2 04/14/17 16:00 94 04/14/17 15:00 97.4 97 20 145/85 (105) 96 04/14/17 15:00 99 Nasal Cannula 3.00 04/14/17 15:00 97 04/14/17 14:00 100 04/14/17 13:00 92 04/14/17 12:00 80 04/14/17 11:23 97.2 80 20 158/80 (106) 100 04/14/17 11:23 99 Nasal Cannula 3.00 04/14/17 11:00 80 04/14/17 10:00 84 04/14/17 09:00 102 04/14/17 08:00 98 04/14/17 07:53 99 Nasal Cannula 3.00 04/14/17 07:10 80 04/14/17 07:10 97.7 83 18 153/62 (92) 100 04/14/17 07:10 100 Nasal Cannula 3.00 04/14/17 06:00 80 04/14/17 05:00 78 04/14/17 04:24 96 20 156/84 (108) 93 04/14/17 04:24 93 Nasal Cannula 3.00 04/14/17 04:00 92 04/14/17 03:56 92 Nasal Cannula 3.00 04/14/17 03:00 76 04/14/17 02:00 78 04/14/17 01:00 80 04/14/17 00:00 70 04/13/17 23:25 98 Nasal Cannula 3.00 04/13/17 23:22 88 20 157/80 (105) 98 04/13/17 23:00 80 04/13/17 22:00 80 04/13/17 21:00 116 04/13/17 20:56 96 Nasal Cannula 2.00 04/13/17 20:00 100 04/13/17 19:40 98.9 102 20 141/69 (93) 95 04/13/17 19:40 95 Nasal Cannula 3.00 04/13/17 19:00 103 Result Diagram: 04/13/17 0516 04/14/17 0519 Other Results Laboratory Tests Test 04/13/17 05:16 04/14/17 05:19 White Blood Count 8.2 TH/MM3 Red Blood Count 3.88 MIL/MM3 Hemoglobin 12.0 GM/DL Hematocrit 36.4 % Mean Corpuscular Volume 93.7 FL Mean Corpuscular Hemoglobin 30.9 PG Mean Corpuscular Hemoglobin Concent 32.9 % Red Cell Distribution Width 15.2 % Platelet Count 183 TH/MM3 Mean Platelet Volume 8.0 FL Neutrophils (%) (Auto) 93.2 % Lymphocytes (%) (Auto) 3.6 % Monocytes (%) (Auto) 3.1 % Eosinophils (%) (Auto) 0.0 % Basophils (%) (Auto) 0.1 % Neutrophils # (Auto) 7.7 TH/MM3 Lymphocytes # (Auto) 0.3 TH/MM3 Monocytes # (Auto) 0.3 TH/MM3 Eosinophils # (Auto) 0.0 TH/MM3 Basophils # (Auto) 0.0 TH/MM3 CBC Comment DIFF FINAL Differential Comment Blood Urea Nitrogen 23 MG/DL 37 MG/DL Creatinine 1.77 MG/DL 2.37 MG/DL Random Glucose 174 MG/DL 130 MG/DL Calcium Level 7.5 MG/DL 7.5 MG/DL Magnesium Level 2.0 MG/DL Sodium Level 140 MEQ/L 138 MEQ/L Potassium Level 4.2 MEQ/L 4.7 MEQ/L Chloride Level 111 MEQ/L 110 MEQ/L Carbon Dioxide Level 17.4 MEQ/L 18.5 MEQ/L Anion Gap 12 MEQ/L 10 MEQ/L Estimat Glomerular Filtration Rate 28 ML/MIN 20 ML/MIN Imaging Last Impressions Chest X-Ray 04/13/17 0600 Signed Impressions: Service Date/Time: Thursday, April 13, 2017 05:41 - CONCLUSION: No acute disease. There is no evidence of pneumonia. Angelito Walker MD Last Impressions Chest X-Ray 04/12/17 0056 Signed Impressions: Service Date/Time: Wednesday, April 12, 2017 01:34 - CONCLUSION: No acute disease. There is no evidence of pneumonia. Angelito Walker MD Objective Remarks General: NAD, AAOx3 Chest: Improved aeration bilaterally, no appreciable wheezing or rhonchi Cardiac: Regular Abd: +BS, soft ND/NT Ext: No edema A/P Problem List: (1) SOB (shortness of breath) ICD Codes: R06.02 - Shortness of breath Status: Acute Plan: - Pt is a 76 y/o WF with HTN, hyperlipidemia, diabetes and CKD stage 4, who presented to the ED at [facility] on 04/12/17 with complaints of worsening SOB and cough x 1 week. - Pt initially developed sinus congestion, runny nose and a nonproductive cough. This progressively worsened over the last week and she has been feeling more SOB. She has tried OTC Mucinex and cough drops without any relief. - In the ED she was noted to be tachycardic with HR in the 130-140s upon arrival. Pt was given IV Cardizem with some improvement but her tachycardia did not resolve and she was started on Cardizem gtt. She appears to have sinus tachycardia on telemetry. She normally takes Metoprolol 25mg po BID at home and states that she has not missed any doses. - Her labs in the ED noted a normal WBC count of 6, BNP was 73. Her Cr is slightly higher than her baseline which has been around 1.7 to 1.8 for the last several months. - CXR did not reveal any acute cardio or pulmonary disease. No pneumonia noted - She has hx of tobacco use but no formal diagnosis of COPD. - At this point it is felt that the pt may be having a COPD flare which initially started with an URI infection. - Currently with sinus tach but much improved - Cont Solu-Medrol, decrease to 60mg Q12H, nebs and abx - Pt still requiring 3L of supplemental O2 - Check noncontrasted CT tomorrow morning. - DVT prophylaxis with Lovenox (2) Tachycardia ICD Codes: R00.0 - Tachycardia, unspecified Status: Acute Plan: - Pt does not have any hx of A. fib or A. flutter and EKG at admission indicated possible A. flutter - She appears to be in sinus tach on telemetry, likely related to her acute respiratory issues - Pt was started on Cardizem gtt in the ED currently at 15mg - Resume the pts home dose of Metoprolol 25mg po BID - Cardizem weaned to off. Metoprolol increased to 50mg Q12H on 04/13 - 2D echo (04/12) --> Estimated EF 50-55%, grade 1 diastolic dysfunction, trace MV regurg, estimated PA pressure 48.7mmHg - Telemetry (3) Cough ICD Codes: R05 - Cough Status: Acute Plan: - See above. (4) HTN (hypertension) ICD Codes: I10 - Essential (primary) hypertension Status: Chronic Plan: - Cont. Metoprolol - Pt also takes scheduled clonidine, hold this - Clonidine PRN - Monitor (5) Diabetes ICD Codes: E11.9 - Type 2 diabetes mellitus without complications Status: Chronic Plan: - NovoLog SSI - Accu checks (6) CKD (chronic kidney disease) stage 4, GFR 15-29 ml/min ICD Codes: N18.4 - Chronic kidney disease, stage 4 (severe) Status: Chronic Plan: - Pt with stage 4 CKD, follows with Dr. Miller. - Pts renal function increased to 2.37 - Gentle IVF - Monitor labs (7) Hyperlipidemia ICD Codes: E78.5 - Hyperlipidemia, unspecified Status: Chronic Assessment and Plan Patient examined. Assessment and plan formulated with Kathrine Barajas PA-C. I agree with the above. Problem Qualifiers (1) HTN (hypertension): Qualified Codes: I10 - Essential (primary) hypertension (2) Diabetes: Kathrine Barajas Apr 14, 2017 16:40 Ariel Hyman DO Apr 20, 2017 22:54
[2017-04-15] VITALS (21 sets, daily range): BP systolic 122–169; BP diastolic 62–113; PULSE 74–96; RESP 16–24; TEMP 96.6–98.7; O2SAT 95–98
[2017-04-15] MEDS: methylPREDNISolone SOD SUCC 125 MG/2 ML VIAL IV PUSH SCH ×2 (03:21→15:51)
[2017-04-15] MEDS: cloNIDine HCL 0.2 MG TAB PO PRN (03:29)
[2017-04-15] MEDS: RESP: IPRATROPIUM 0.5 MG/2.5 ML NEB NEB SCH ×4 (03:43→20:05)
[2017-04-15] MEDS: RESP: ACETYLCYSTEINE 20% 30 ML NEB NEB SCH ×4 (03:43→20:00)
[2017-04-15 06:03] LABS: AUTOMATED NEUTROPHIL # 10.2 TH/MM3 (1.8-7.7); BASOPHIL % 0.1 % (0.0-2.0); HEMATOCRIT 36.4 % (35.0-46.0); HEMO FLAGS DIFF FINAL; LYMPH % 2.4 % (9.0-44.0); LYMPHOCYTE # 0.3 TH/MM3 (1.0-4.8); MEAN CELL VOLUME 91.5 FL (80.0-100.0); MEAN CORPUSCULAR HEMOGLOBIN 30.2 PG (27.0-34.0); MONO % 4.2 % (0.0-8.0); NEUT % 93.3 % (16.0-70.0); PLATELET COUNT 180 TH/MM3 (150-450); RED BLOOD COUNT 3.97 MIL/MM3 (4.00-5.30); RED CELL DISTRIBUTION WIDTH 15.6 % (11.6-17.2); WHITE BLOOD COUNT 10.9 TH/MM3 (4.0-11.0)
[2017-04-15 06:40] LABS: BICARBONATE 21.1 MEQ/L (21.0-32.0); MAGNESIUM 2.6 MG/DL (1.5-2.5); POTASSIUM 4.2 MEQ/L (3.5-5.1)
[2017-04-15] MEDS: INSULIN ASPART SUPPLEMENTAL SCALE SQ SCH ×4 (08:00→21:00)
[2017-04-15] MEDS: RALOXIFENE HCL 60 MG TAB PO SCH (09:11)
[2017-04-15] MEDS: METOPROLOL TARTRATE 50 MG TAB PO SCH ×2 (09:12→22:50)
[2017-04-15] MEDS: ATORVASTATIN 80 MG TAB PO SCH (09:12)
[2017-04-15] MEDS: ASPIRIN 81 MG CHEW TAB CHEW SCH (09:12)
[2017-04-15] MEDS: PANTOPRAZOLE SODIUM 40 MG VIAL IV PUSH SCH ×2 (09:14→22:50)
[2017-04-15] MEDS: ENOXAPARIN SODIUM 30 MG/0.3 ML SYRINGE SQ SCH (09:15)
--- NOTE | 2017-04-15 16:00 | HHI.PR ---
Subjective Remarks Pt feeling overall better today Weaning down the O2, currently at 1L She ambulated today with PT and recommended for HHC/PT Objective Vitals Vital Signs Date Time Temp Pulse Resp B/P (MAP) Pulse Ox O2 Delivery O2 Flow Rate FiO2 04/15/17 14:01 88 04/15/17 13:01 80 04/15/17 12:00 79 04/15/17 11:01 98 Nasal Cannula 2.00 Humidified 04/15/17 11:00 97.7 80 16 122/62 (82) 98 04/15/17 11:00 74 04/15/17 10:00 75 04/15/17 09:01 80 04/15/17 08:32 98 Nasal Cannula 2.00 Humidified 04/15/17 08:00 88 04/15/17 07:49 Nasal Cannula 2.00 04/15/17 07:01 75 04/15/17 07:00 96.6 88 16 149/75 (99) 98 04/15/17 05:00 78 04/15/17 04:00 96 04/15/17 03:44 95 Nasal Cannula 2.00 04/15/17 03:23 98.0 90 24 169/113 (131) 98 04/15/17 03:00 80 04/15/17 03:00 96 Nasal Cannula 2.00 04/15/17 02:00 86 04/15/17 01:00 86 04/15/17 00:00 96 04/14/17 23:30 96 Nasal Cannula 2.00 04/14/17 23:00 96 Nasal Cannula 2.00 04/14/17 23:00 99 24 147/83 (104) 96 04/14/17 23:00 90 04/14/17 22:00 100 04/14/17 21:00 114 04/14/17 20:00 96 Nasal Cannula 2.00 04/14/17 20:00 112 04/14/17 19:45 95 Nasal Cannula 2.00 04/14/17 19:15 97.6 110 24 157/78 (104) 96 04/14/17 19:00 102 04/14/17 18:18 107 04/14/17 17:12 104 04/14/17 16:00 94 Result Diagram: 04/15/17 0430 04/15/17 0430 Other Results Laboratory Tests Test 04/14/17 05:19 04/15/17 04:30 Blood Urea Nitrogen 37 MG/DL 47 MG/DL Creatinine 2.37 MG/DL 2.68 MG/DL Random Glucose 130 MG/DL 65 MG/DL Calcium Level 7.5 MG/DL 7.7 MG/DL Sodium Level 138 MEQ/L 140 MEQ/L Potassium Level 4.7 MEQ/L 4.2 MEQ/L Chloride Level 110 MEQ/L 110 MEQ/L Carbon Dioxide Level 18.5 MEQ/L 21.1 MEQ/L Anion Gap 10 MEQ/L 9 MEQ/L Estimat Glomerular Filtration Rate 20 ML/MIN 17 ML/MIN White Blood Count 10.9 TH/MM3 Red Blood Count 3.97 MIL/MM3 Hemoglobin 12.0 GM/DL Hematocrit 36.4 % Mean Corpuscular Volume 91.5 FL Mean Corpuscular Hemoglobin 30.2 PG Mean Corpuscular Hemoglobin Concent 33.0 % Red Cell Distribution Width 15.6 % Platelet Count 180 TH/MM3 Mean Platelet Volume 8.0 FL Neutrophils (%) (Auto) 93.3 % Lymphocytes (%) (Auto) 2.4 % Monocytes (%) (Auto) 4.2 % Eosinophils (%) (Auto) 0.0 % Basophils (%) (Auto) 0.1 % Neutrophils # (Auto) 10.2 TH/MM3 Lymphocytes # (Auto) 0.3 TH/MM3 Monocytes # (Auto) 0.5 TH/MM3 Eosinophils # (Auto) 0.0 TH/MM3 Basophils # (Auto) 0.0 TH/MM3 CBC Comment DIFF FINAL Differential Comment Magnesium Level 2.6 MG/DL Imaging Last Impressions Chest X-Ray 04/13/17 0600 Signed Impressions: Service Date/Time: Thursday, April 13, 2017 05:41 - CONCLUSION: No acute disease. There is no evidence of pneumonia. Angelito Walker MD Last Impressions Chest X-Ray 04/12/17 0056 Signed Impressions: Service Date/Time: Wednesday, April 12, 2017 01:34 - CONCLUSION: No acute disease. There is no evidence of pneumonia. Angelito Walker MD Objective Remarks General: NAD, AAOx3 Chest: Improved aeration bilaterally, no appreciable wheezing or rhonchi Cardiac: Regular Abd: +BS, soft ND/NT Ext: No edema A/P Problem List: (1) SOB (shortness of breath) ICD Codes: R06.02 - Shortness of breath Status: Acute Plan: - Pt is a 76 y/o WF with HTN, hyperlipidemia, diabetes and CKD stage 4, who presented to the ED at [facility] on 04/12/17 with complaints of worsening SOB and cough x 1 week. - Pt initially developed sinus congestion, runny nose and a nonproductive cough. This progressively worsened over the last week and she has been feeling more SOB. She has tried OTC Mucinex and cough drops without any relief. - In the ED she was noted to be tachycardic with HR in the 130-140s upon arrival. Pt was given IV Cardizem with some improvement but her tachycardia did not resolve and she was started on Cardizem gtt. She appears to have sinus tachycardia on telemetry. She normally takes Metoprolol 25mg po BID at home and states that she has not missed any doses. - Her labs in the ED noted a normal WBC count of 6, BNP was 73. Her Cr is slightly higher than her baseline which has been around 1.7 to 1.8 for the last several months. - CXR did not reveal any acute cardio or pulmonary disease. No pneumonia noted - She has hx of tobacco use but no formal diagnosis of COPD. - At this point it is felt that the pt may be having a COPD flare which initially started with an URI infection. - Currently with sinus tach but much improved - Solu-Medrol, changed to 30mg Q12H on 04/15 - Cont. nebs and abx - Pt down to 1L of supplemental O2 - Await noncontrasted CT today - DVT prophylaxis with Lovenox (2) Tachycardia ICD Codes: R00.0 - Tachycardia, unspecified Status: Acute Plan: - Pt does not have any hx of A. fib or A. flutter and EKG at admission indicated possible A. flutter - She appears to be in sinus tach on telemetry, likely related to her acute respiratory issues - Pt was started on Cardizem gtt in the ED currently at 15mg - Resume the pts home dose of Metoprolol 25mg po BID - Cardizem weaned to off. Metoprolol increased to 50mg Q12H on 04/13 - HR stable - 2D echo (04/12) --> Estimated EF 50-55%, grade 1 diastolic dysfunction, trace MV regurg, estimated PA pressure 48.7mmHg - Telemetry (3) CKD (chronic kidney disease) stage 4, GFR 15-29 ml/min ICD Codes: N18.4 - Chronic kidney disease, stage 4 (severe) Status: Chronic Plan: - Pt with stage 4 CKD, follows with Dr. Miller. - Pts renal function increased to 2.68 - Gentle IVF - Monitor labs in AM (4) Cough ICD Codes: R05 - Cough Status: Acute Plan: - See above. (5) HTN (hypertension) ICD Codes: I10 - Essential (primary) hypertension Status: Chronic Plan: - Cont. Metoprolol - Pt also takes scheduled clonidine, hold this - Clonidine PRN - Monitor (6) Diabetes ICD Codes: E11.9 - Type 2 diabetes mellitus without complications Status: Chronic Plan: - NovoLog SSI - Accu checks (7) Hyperlipidemia ICD Codes: E78.5 - Hyperlipidemia, unspecified Status: Chronic Assessment and Plan Patient examined. Assessment and plan formulated with Kathrine Barajas PA-C. I agree with the above. Problem Qualifiers (1) HTN (hypertension): Qualified Codes: I10 - Essential (primary) hypertension (2) Diabetes: Kathrine Barajas Apr 15, 2017 16:00 Ariel Hyman DO Apr 20, 2017 22:54
[2017-04-15] MEDS: 1/2 NS + KCL 20 MEQ INJ 1,000 ML IV SCH (17:44)
--- NOTE | 2017-04-15 22:08 | RADRPT ---
EXAM DATE/TIME: 04/15/2017 21:37 [facility] COMPARISON: No previous studies available for comparison. INDICATIONS : Shortness of breath. RADIATION DOSE: 4.64 CTDIvol (mGy) MEDICAL HISTORY : Cardiovascular disease. Chronic obstructive pulmonary disease. Gastroesophageal reflux disease. Hyper tension. Renal calculi. Renal failure. Hiatal hernia. SURGICAL HISTORY : Carotid endarterectomy. Renal stent. ENCOUNTER: Initial ACUITY: 1 day PAIN SCALE: 0/10 LOCATION: Bilateral chest TECHNIQUE: Volumetric scanning of the chest was performed. Using automated exposure control and adjustment of t he mA and/or kV according to patient size, radiation dose was kept as low as reasonably achievable to obtain optimal diagnostic quality images. DICOM format image data is available electronically for r eview and comparison. Follow-up recommendations for detected pulmonary nodules are based at a minimum on nodule size and pa tient risk factors according to Fleischner Society Guidelines. FINDINGS: Approximate 6 mm nodule is present in left lower lobe with slight subcentimeter density left upper lo be probably scar. There are however areas of vague parenchymal infiltrates as well in right upper lob e and questionably parts of the right middle lobe. There is no pleural effusion. No appreciable pat hological adenopathy is seen within the mediastinum. Tiny pericardial effusion is seen maximum thickn ess almost 8 mm. Coronary artery calcifications are seen typically seen with CAD and need to be evalu ated clinically. There may be a small sliding hiatal hernia. CONCLUSION: Left lung base nodule and parenchymal infiltrates most likely inflammatory, repeat noncontrast chest CT is suggested in 3 months as a conservative follow up. Jorge Narvaez MD on April 15, 2017 at 22:02 Board Certified Radiologist. This report was verified electronically.
[2017-04-16] VITALS (11 sets, daily range): BP systolic 138–176; BP diastolic 71–80; PULSE 78–100; RESP 18–20; TEMP 97.1–98.8; O2SAT 90–97
[2017-04-16] MEDS: methylPREDNISolone SOD SUCC 125 MG/2 ML VIAL IV PUSH SCH ×2 (03:37→14:44)
[2017-04-16] MEDS: RESP: IPRATROPIUM 0.5 MG/2.5 ML NEB NEB SCH ×7 (04:41→20:02)
[2017-04-16] MEDS: RESP: ACETYLCYSTEINE 20% 30 ML NEB NEB SCH ×4 (04:41→10:20)
[2017-04-16] MEDS: 1/2 NS + KCL 20 MEQ INJ 1,000 ML IV SCH (05:54)
[2017-04-16] MEDS: INSULIN ASPART SUPPLEMENTAL SCALE SQ SCH ×4 (08:00→21:00)
[2017-04-16] MEDS: RALOXIFENE HCL 60 MG TAB PO SCH (09:00)
[2017-04-16] MEDS: ENOXAPARIN SODIUM 30 MG/0.3 ML SYRINGE SQ SCH (09:38)
[2017-04-16] MEDS: PANTOPRAZOLE SODIUM 40 MG VIAL IV PUSH SCH ×2 (09:38→20:30)
[2017-04-16] MEDS: ATORVASTATIN 80 MG TAB PO SCH (09:39)
[2017-04-16] MEDS: ASPIRIN 81 MG CHEW TAB CHEW SCH (09:39)
[2017-04-16] MEDS: METOPROLOL TARTRATE 50 MG TAB PO SCH ×2 (09:40→20:27)
[2017-04-16] MEDS: LEVOFLOXACIN 250 MG PREMIX INJ 50 ML IV SCH (09:40)
[2017-04-16 10:15] LABS: BICARBONATE 17.2 MEQ/L (21.0-32.0); MAGNESIUM 2.5 MG/DL (1.5-2.5); POTASSIUM 4.7 MEQ/L (3.5-5.1)
--- NOTE | 2017-04-16 14:48 | HHI.FF ---
Face to Face Verification Diagnosis: (1) CKD (chronic kidney disease) stage 4, GFR 15-29 ml/min (2) HTN (hypertension) (3) SOB (shortness of breath) Physical Therapy Order: Evaluate and Treat, Improve ambulation, Strength and gait training Home Health Nursing Order: Medical education Signs/symptoms of disease process Oxygen administration education Medication education-adverse effect Nursing assessment with vital signs I have seen patient Mandy Gallo on 04/16/17. My clinical findings support the need for the requested home health care services because: Ltd mobility - disease progression Patient has SOB Deconditioned w/ increased weakness Med compliance is questionable Limited ability to care for self Need for psychosocial assistance I certify that my clinical findings support that this patient is homebound because: Hx COPD- exertion dyspnea/weakness Unsafe to leave home unassisted Need for psychosocial assistance Unable to use public transportation Ariel Hyman DO Apr 16, 2017 14:47
--- NOTE | 2017-04-16 15:02 | HHI.PR ---
Subjective Remarks No new complaints. Objective Vitals Vital Signs Date Time Temp Pulse Resp B/P (MAP) Pulse Ox O2 Delivery O2 Flow Rate FiO2 04/16/17 12:00 97.9 96 18 167/77 (107) 96 04/16/17 10:18 95 Nasal Cannula 1.00 04/16/17 08:00 98.1 90 18 176/80 (112) 93 04/16/17 07:30 95 Nasal Cannula 2.00 04/16/17 04:46 94 Nasal Cannula 2.00 04/16/17 04:00 98.4 78 20 166/78 (107) 93 04/16/17 00:00 97.5 92 20 164/76 (105) 96 04/15/17 22:55 Nasal Cannula 2.00 04/15/17 20:00 98.7 93 20 169/81 (110) 96 04/15/17 19:25 88 04/15/17 16:00 97.4 91 18 123/82 (96) 95 04/15/17 15:48 95 Nasal Cannula 2.00 04/15/17 15:00 95 Nasal Cannula 2.00 Result Diagram: 04/15/17 0430 04/16/17 0836 Imaging Last Impressions Chest X-Ray 04/13/17 0600 Signed Impressions: Service Date/Time: Thursday, April 13, 2017 05:41 - CONCLUSION: No acute disease. There is no evidence of pneumonia. Angelito Walker MD Last Impressions Chest X-Ray 04/12/17 0056 Signed Impressions: Service Date/Time: Wednesday, April 12, 2017 01:34 - CONCLUSION: No acute disease. There is no evidence of pneumonia. Angelito Walker MD Objective Remarks General: NAD, AAOx3 Chest: Improved aeration bilaterally, no appreciable wheezing or rhonchi Cardiac: Regular Abd: +BS, soft ND/NT Ext: No edema A/P Problem List: (1) SOB (shortness of breath) ICD Codes: R06.02 - Shortness of breath Status: Acute Plan: - Pt is a 76 y/o WF with HTN, hyperlipidemia, diabetes and CKD stage 4, who presented to the ED at [facility] [place] on 04/12/17 with complaints of worsening SOB and cough x 1 week. - Pt initially developed sinus congestion, runny nose and a nonproductive cough. This progressively worsened over the last week and she has been feeling more SOB. She has tried OTC Mucinex and cough drops without any relief. - In the ED she was noted to be tachycardic with HR in the 130-140s upon arrival. Pt was given IV Cardizem with some improvement but her tachycardia did not resolve and she was started on Cardizem gtt. She appears to have sinus tachycardia on telemetry. She normally takes Metoprolol 25mg po BID at home and states that she has not missed any doses. - Her labs in the ED noted a normal WBC count of 6, BNP was 73. Her Cr is slightly higher than her baseline which has been around 1.7 to 1.8 for the last several months. - CXR did not reveal any acute cardio or pulmonary disease. No pneumonia noted - She has hx of tobacco use but no formal diagnosis of COPD. - At this point it is felt that the pt may be having a COPD flare which initially started with an URI infection. - Currently with sinus tach but much improved - PO prednison, duonebs, abx - CT thorax (04/15/17) --> nonspecific Left lung base nodule, probably inflammatory, repeat CT for stability in 3 months - anticipate d/c to home in next 1-2 days - arrange for home oxygen. obtain Walk test - DVT prophylaxis with Lovenox (2) CKD (chronic kidney disease) stage 4, GFR 15-29 ml/min ICD Codes: N18.4 - Chronic kidney disease, stage 4 (severe) Status: Chronic Plan: - Pt with stage 4 CKD, follows with Dr. Miller. - Pts renal function increased to 2.68 (04/15), 2.61 (04/16) - Gentle IVF - obtain Renal US - Dr. Miller will consult - Monitor labs in AM (3) Tachycardia ICD Codes: R00.0 - Tachycardia, unspecified Status: Acute Plan: - Pt does not have any hx of A. fib or A. flutter and EKG at admission indicated possible A. flutter - She appears to be in sinus tach on telemetry, likely related to her acute respiratory issues - Pt was started on Cardizem gtt in the ED currently at 15mg - Resume the pts home dose of Metoprolol 25mg po BID - Cardizem weaned to off. Metoprolol increased to 50mg Q12H on 04/13 - HR stable most of today, but telemetry is currently showing sinus tachycardia 100-115, observe - 2D echo (04/12) --> Estimated EF 50-55%, grade 1 diastolic dysfunction, trace MV regurg, estimated PA pressure 48.7mmHg - Telemetry (4) Cough ICD Codes: R05 - Cough Status: Acute Plan: - See above. (5) HTN (hypertension) ICD Codes: I10 - Essential (primary) hypertension Status: Chronic Plan: - Cont. Metoprolol - Pt also takes scheduled clonidine, hold this - Clonidine PRN - Monitor (6) Diabetes ICD Codes: E11.9 - Type 2 diabetes mellitus without complications Status: Chronic Plan: - NovoLog SSI - Accu checks (7) Hyperlipidemia ICD Codes: E78.5 - Hyperlipidemia, unspecified Status: Chronic Problem Qualifiers (1) HTN (hypertension): Qualified Codes: I10 - Essential (primary) hypertension (2) Diabetes: Ariel Hyman DO Apr 16, 2017 15:02
--- NOTE | 2017-04-16 18:08 | PD.CONS ---
HPI Service Nephrology Consult Requested By DR. Hyman Reason for Consult Acute and chronic kidney disease Primary Care Physician Reginaldo Carey MD, PhD History of Present Illness Patient is a 76-year-old female with history of diabetes, chronic kidney disease , hypertension who had increasing shortness of breath and came these complaint and has left lung nodule with some inflammation on the CT scan, patient has been treated for this however her creatinine is going up from 1.7-2.6 and short period of time, I had seen her in the clinic in October 2014 and creatinine was 1.8 GFR was 27 patient is passing urine denies any dysuria or burning Review of Systems Respiratory: COMPLAINS OF: Cough, Shortness of breath Cardiovascular: COMPLAINS OF: Dyspnea on Exertion Musculoskeletal: COMPLAINS OF: Joint pain, Muscle aches Neurologic: COMPLAINS OF: Abnormal gait Past Family Social History Allergies: Coded Allergies: niacin (Unverified Allergy, Mild, HIVES, ITCHING, 04/12/17) adhesive (Unverified Allergy, Unknown, 04/12/17) alendronate sodium (Unverified Allergy, Unknown, 04/12/17) calcitonin (Unverified Allergy, Unknown, 04/12/17) Past Medical History HTN Hyperlipidemia Diabetes mellitus, type 2 CKD, stage 4, previous hx of HD x 1 year 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 GERD Rosacea 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 Pelvic mass (9x4.0x3.7cm in 2008, declined followup or any treatment regarding this) 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 Vitamin D deficiency Past Surgical History Bilateral Carotid endarterectomy, 1995, 1997 Bilateral cataract surgery Cystoscopy for stent placement and removal D&C Reported Medications Reported Meds & Active Scripts Active Reported Losartan (Losartan Potassium) 25 Mg Tab 25 Mg PO DAILY Vitamin D-1000 (Cholecalciferol) 1,000 Unit Tab 2,000 Units PO DAILY Rosuvastatin (Rosuvastatin Calcium) 40 Mg Tab 40 Mg PO DAILY Raloxifene (Raloxifene HCl) 60 Mg Tab 60 Mg PO DAILY Metoprolol Tartrate 25 Mg Tab 25 Mg PO BID Glimepiride 2 Mg Tab 2 Mg PO DAILY Take with breakfast or first main meal Clonidine (Clonidine HCl) 0.3 Mg Tab 0.3 Mg PO DAILY Aspirin 81 Mg Chew 81 Mg CHEW DAILY Active Ordered Medications Current Medications Medications (Trade) Dose Ordered Sig/Ned Route Start Time Stop Time Status Last Admin (NS Flush) 2 ml UNSCH PRN IVF 04/12/17 01:00 04/13/17 21:15 Diltiazem HCl 125 mg/Sodium Chloride 125 ml @ 5 mls/hr TITRATE PRN IV 04/12/17 03:15 04/12/17 22:00 (Aspirin Chew) 81 mg DAILY CHEW 04/12/17 09:00 04/16/17 09:39 (Evista) 60 mg DAILY PO 04/12/17 09:00 04/16/17 09:00 (Lipitor) 80 mg DAILY PO 04/12/17 09:00 04/16/17 09:39 (Atrovent Neb) 0.5 mg Q4HR NEB NEB 04/12/17 12:00 04/16/17 17:05 (Catapres) 0.2 mg Q6H PRN PO 04/12/17 09:00 04/15/17 03:29 (NovoLOG SUPPLEMENTAL SCALE) 1 ACHS SLIDING SCALE SQ 04/12/17 12:00 04/16/17 12:00 (Tylenol) 650 mg Q4H PRN PO 04/12/17 09:45 (Zofran Inj) 4 mg Q4H PRN IV 04/12/17 16:30 (Mag-Al Plus Susp Liq) 30 ml Q6H PRN PO 04/12/17 16:30 (Phenergan Inj) 25 mg Q6H PRN IM 04/12/17 16:30 (Protonix Inj) 40 mg Q12HR IV PUSH 04/13/17 09:00 04/16/17 09:38 (Lopressor) 50 mg Q12HR PO 04/13/17 21:00 04/16/17 09:40 (Lovenox Inj) 30 mg Q24H SQ 04/13/17 10:00 04/16/17 09:38 (SoluMEDROL INJ) 60 mg Q12H IV PUSH 04/15/17 03:00 04/16/17 14:44 Levofloxacin/ Dextrose 50 ml @ 50 mls/hr Q48H IV 04/16/17 10:00 04/16/17 09:40 (Cozaar) 50 mg DAILY PO 04/16/17 15:15 Potassium Chloride/Sodium Chloride 1,000 ml @ 84 mls/hr [id number] IV 04/16/17 15:30 04/17/17 08:00 Family History Noncontributory Social History Denies smoking or alcohol use Physical Exam Vital Signs Vital Signs Date Time Temp Pulse Resp B/P (MAP) Pulse Ox O2 Delivery O2 Flow Rate FiO2 04/16/17 17:20 2.00 04/16/17 17:05 90 21 04/16/17 16:00 97.5 87 18 156/71 (99) 93 04/16/17 12:00 97.9 96 18 167/77 (107) 96 04/16/17 10:18 95 Nasal Cannula 1.00 04/16/17 08:00 98.1 90 18 176/80 (112) 93 04/16/17 07:30 95 Nasal Cannula 2.00 04/16/17 04:46 94 Nasal Cannula 2.00 04/16/17 04:00 98.4 78 20 166/78 (107) 93 04/16/17 00:00 97.5 92 20 164/76 (105) 96 04/15/17 22:55 Nasal Cannula 2.00 04/15/17 20:00 98.7 93 20 169/81 (110) 96 04/15/17 19:25 88 Physical Exam GENERAL: Well-nourished, well-developed patient. SKIN: Warm and dry. HEAD: Normocephalic. EYES: No scleral icterus. No injection or drainage. NECK: Supple, trachea midline. No JVD or lymphadenopathy. CARDIOVASCULAR: irregular. RESPIRATORY: Breath sounds diminished at bases GASTROINTESTINAL: Abdomen soft, non-tender, nondistended. EXTREMITIES: No cyanosis, or edema. NEUROLOGICAL: Awake, alert, and oriented x 3. Non-focal. Laboratory Laboratory Tests Test 04/16/17 08:36 Blood Urea Nitrogen 51 Creatinine 2.61 Random Glucose 118 Calcium Level 8.0 Magnesium Level 2.5 Sodium Level 137 Potassium Level 4.7 Chloride Level 110 Carbon Dioxide Level 17.2 Anion Gap 10 Estimat Glomerular Filtration Rate 18 Result Diagram: 04/15/17 0430 04/16/17 0836 Imaging Last Impressions Chest CT 04/15/17 0800 Signed Impressions: Service Date/Time: Saturday, April 15, 2017 21:37 - CONCLUSION: Left lung base nodule and parenchymal infiltrates most likely inflammatory, repeat noncontrast chest CT is suggested in 3 months as a conservative follow up. Jorge Narvaez MD Chest X-Ray 04/13/17 0600 Signed Impressions: Service Date/Time: Thursday, April 13, 2017 05:41 - CONCLUSION: No acute disease. There is no evidence of pneumonia. Angelito Walker MD Assessment and Plan Problem List: (1) Acute renal failure ICD Codes: N17.9 - Acute kidney failure, unspecified Status: Acute Plan: Patient is dehydrated and I agree with hydration continue to monitor urine output creatinine is slowly declining She is being treated for pneumonia on Levaquin and continue to monitor urine output Check UA Urine sodium creatinine Urine protein (2) CKD (chronic kidney disease) stage 4, GFR 15-29 ml/min ICD Codes: N18.4 - Chronic kidney disease, stage 4 (severe) Status: Chronic Plan: Baseline GFR around 27 Will monitor (3) HTN (hypertension) ICD Codes: I10 - Essential (primary) hypertension Status: Chronic Plan: Monitor BP (4) Diabetes ICD Codes: E11.9 - Type 2 diabetes mellitus without complications Status: Chronic Plan: Monitor blood glucose (5) Pneumonia ICD Codes: J18.9 - Pneumonia, unspecified organism Plan: Patient is being treated with Levaquin Problem Qualifiers (1) Acute renal failure: Qualified Codes: N17.9 - Acute kidney failure, unspecified (2) HTN (hypertension): Qualified Codes: I10 - Essential (primary) hypertension (3) Diabetes: (4) Pneumonia: Ever Miller MD Apr 16, 2017 18:08
[2017-04-16] MEDS: LOSARTAN 50 MG TAB PO SCH (18:30)
[2017-04-16] MEDS: SODIUM CHLORIDE 0.9% FLUSH 10 ML FLUSH IVF PRN (20:34)
--- NOTE | 2017-04-16 22:36 | RADRPT ---
EXAM DATE/TIME: 04/16/2017 20:54 [place] COMPARISON: CT THORAX W/O CONTRAST, April 15, 2017, 21:37. INDICATIONS : Increased lab values. MEDICAL HISTORY : Gastroesophageal reflux disease. Hypercholesterolemia. Chronic obstructive pulmonary disease. Cerebro vascular accident. Hypertension. Hernia, hiatal. Renal diasease. Hemodialysis. Diabetes. SURGICAL HISTORY : Bilateral cataract surgery. Cardiac catheterization. Nephrostomy. Lithotripsy. Endarectomy. ENCOUNTER: Initial ACUITY: 1 day PAIN SCORE: 0/10 LOCATION: Bilateral flank MEASUREMENTS: RIGHT KIDNEY: 8.9 x 4.7 x 4.2 cm LEFT KIDNEY: Non visualized. FINDINGS: RIGHT KIDNEY: Diffuse increase in cortical echogenicity. No hydronephrosis. Several small cysts. LEFT KIDNEY: No normal kidney. 9 cm fluid echogenicity mass may be hydronephrotic sac. BLADDER: Within normal limits given the degree of distension. CONCLUSION: Echogenic right kidney suggesting chronic medical renal disease. Left renal fossa contains what may be a hydronephrotic sac. Correlation with CT suggested if clinical ly appropriate. Steve Shin MD on April 16, 2017 at 22:31 Board Certified Radiologist. This report was verified electronically.
[2017-04-17] VITALS (9 sets, daily range): BP systolic 148–179; BP diastolic 73–95; PULSE 74–94; RESP 18–22; TEMP 97.7–98.8; O2SAT 93–98
[2017-04-17] MEDS: RESP: IPRATROPIUM 0.5 MG/2.5 ML NEB NEB SCH ×6 (00:49→20:49)
[2017-04-17] MEDS: 1/2 NS + KCL 20 MEQ INJ 1,000 ML IV SCH ×3 (02:06→14:55)
[2017-04-17] MEDS: methylPREDNISolone SOD SUCC 125 MG/2 ML VIAL IV PUSH SCH (02:07)
[2017-04-17] MEDS: cloNIDine HCL 0.2 MG TAB PO PRN (02:07)
[2017-04-17] MEDS: INSULIN ASPART SUPPLEMENTAL SCALE SQ SCH ×4 (08:00→21:00)
[2017-04-17] MEDS: LOSARTAN 50 MG TAB PO SCH (08:50)
[2017-04-17] MEDS: ASPIRIN 81 MG CHEW TAB CHEW SCH (08:51)
[2017-04-17] MEDS: RALOXIFENE HCL 60 MG TAB PO SCH (08:51)
[2017-04-17] MEDS: METOPROLOL TARTRATE 50 MG TAB PO SCH ×2 (08:52→20:38)
[2017-04-17] MEDS: PANTOPRAZOLE SODIUM 40 MG VIAL IV PUSH SCH ×2 (08:52→20:38)
[2017-04-17] MEDS: ATORVASTATIN 80 MG TAB PO SCH (08:52)
[2017-04-17] MEDS: ENOXAPARIN SODIUM 30 MG/0.3 ML SYRINGE SQ SCH (08:52)
[2017-04-17 09:01] LABS: POTASSIUM 4.6 MEQ/L (3.5-5.1)
--- NOTE | 2017-04-17 13:14 | HHI.PR ---
Subjective Remarks No new complaints. SOB improved from admission. Objective Vitals Vital Signs Date Time Temp Pulse Resp B/P (MAP) Pulse Ox O2 Delivery O2 Flow Rate FiO2 04/17/17 12:26 Nasal Cannula 2.00 04/17/17 08:00 97.7 75 18 174/73 (106) 93 04/17/17 07:57 95 Nasal Cannula 3.00 04/17/17 04:00 98.6 74 20 169/89 (115) 98 04/17/17 00:49 93 Nasal Cannula 3.00 04/17/17 00:05 Nasal Cannula 2.00 04/17/17 00:00 97.7 94 20 148/82 (104) 93 04/16/17 20:02 97 Nasal Cannula 2.00 04/16/17 20:00 98.8 85 20 168/80 (109) 96 04/16/17 19:54 Nasal Cannula 2.00 04/16/17 19:30 80 04/16/17 17:20 2.00 04/16/17 17:05 90 21 04/16/17 16:00 97.5 87 18 156/71 (99) 93 Result Diagram: 04/15/17 0430 04/17/17 0729 Other Results Laboratory Tests Test 04/15/17 04:30 04/16/17 08:36 04/17/17 07:29 White Blood Count 10.9 TH/MM3 Red Blood Count 3.97 MIL/MM3 Hemoglobin 12.0 GM/DL Hematocrit 36.4 % Mean Corpuscular Volume 91.5 FL Mean Corpuscular Hemoglobin 30.2 PG Mean Corpuscular Hemoglobin Concent 33.0 % Red Cell Distribution Width 15.6 % Platelet Count 180 TH/MM3 Mean Platelet Volume 8.0 FL Neutrophils (%) (Auto) 93.3 % Lymphocytes (%) (Auto) 2.4 % Monocytes (%) (Auto) 4.2 % Eosinophils (%) (Auto) 0.0 % Basophils (%) (Auto) 0.1 % Neutrophils # (Auto) 10.2 TH/MM3 Lymphocytes # (Auto) 0.3 TH/MM3 Monocytes # (Auto) 0.5 TH/MM3 Eosinophils # (Auto) 0.0 TH/MM3 Basophils # (Auto) 0.0 TH/MM3 CBC Comment DIFF FINAL Differential Comment Blood Urea Nitrogen 47 MG/DL 51 MG/DL 44 MG/DL Creatinine 2.68 MG/DL 2.61 MG/DL 2.47 MG/DL Random Glucose 65 MG/DL 118 MG/DL 114 MG/DL Calcium Level 7.7 MG/DL 8.0 MG/DL 8.2 MG/DL Magnesium Level 2.6 MG/DL 2.5 MG/DL Sodium Level 140 MEQ/L 137 MEQ/L 138 MEQ/L Potassium Level 4.2 MEQ/L 4.7 MEQ/L 4.6 MEQ/L Chloride Level 110 MEQ/L 110 MEQ/L 110 MEQ/L Carbon Dioxide Level 21.1 MEQ/L 17.2 MEQ/L 22.0 MEQ/L Anion Gap 9 MEQ/L 10 MEQ/L 6 MEQ/L Estimat Glomerular Filtration Rate 17 ML/MIN 18 ML/MIN 19 ML/MIN Imaging Last Impressions Chest X-Ray 04/13/17 0600 Signed Impressions: Service Date/Time: Thursday, April 13, 2017 05:41 - CONCLUSION: No acute disease. There is no evidence of pneumonia. Angelito Walker MD Last Impressions Chest X-Ray 04/12/17 0056 Signed Impressions: Service Date/Time: Wednesday, April 12, 2017 01:34 - CONCLUSION: No acute disease. There is no evidence of pneumonia. Angelito Walker MD Objective Remarks General: NAD, AAOx3 Chest: Improved aeration bilaterally, no appreciable wheezing or rhonchi Cardiac: Regular Abd: +BS, soft ND/NT Ext: No edema A/P Problem List: (1) SOB (shortness of breath) ICD Codes: R06.02 - Shortness of breath Status: Acute Plan: - Pt is a 76 y/o WF with HTN, hyperlipidemia, diabetes and CKD stage 4, who presented to the ED at [facility] [place] on 04/12/17 with complaints of worsening SOB and cough x 1 week. - Pt initially developed sinus congestion, runny nose and a nonproductive cough. This progressively worsened over the last week and she has been feeling more SOB. She has tried OTC Mucinex and cough drops without any relief. - In the ED she was noted to be tachycardic with HR in the 130-140s upon arrival. Pt was given IV Cardizem with some improvement but her tachycardia did not resolve and she was started on Cardizem gtt. She appears to have sinus tachycardia on telemetry. She normally takes Metoprolol 25mg po BID at home and states that she has not missed any doses. - Her labs in the ED noted a normal WBC count of 6, BNP was 73. Her Cr is slightly higher than her baseline which has been around 1.7 to 1.8 for the last several months. - CXR did not reveal any acute cardio or pulmonary disease. No pneumonia noted - She has hx of tobacco use but no formal diagnosis of COPD. - At this point it is felt that the pt may be having a COPD flare which initially started with an URI infection. - Currently with sinus tach but much improved - duonebs - Levaquin (04/12 - present) - DC IV steroids and start prednisone 30 mg PO BID 04/17 - CT thorax (04/15/17) --> nonspecific Left lung base nodule, probably inflammatory, repeat CT for stability in 3 months - anticipate d/c to home in next 1-2 days - Walk test completed oxygenation dropped to 87% without O2- home health oxygen ordered - DVT prophylaxis with Lovenox (2) CKD (chronic kidney disease) stage 4, GFR 15-29 ml/min ICD Codes: N18.4 - Chronic kidney disease, stage 4 (severe) Status: Chronic Plan: - Pt with stage 4 CKD, follows with Dr. Miller. - Pts renal function increased to 2.68 (04/15), 2.61 (04/16) - Gentle IVF - Renal US reviewed and reveals Echogenic right lidney suggesting chronic medical renal disease. Left renal fossa contains what may be a hydronephrotic sac. Correlation with CT suggested if clinically appropriate. US finding discussed with radiology who will compare this to prior imaging from 2006. Unable to further evaluate with contrast due to creatinine level. - Dr. Miller will consult, appreciate input. IVF, UA, urine sodium and urine protein ordered - recheck labs in AM (3) Tachycardia ICD Codes: R00.0 - Tachycardia, unspecified Status: Acute Plan: - Pt does not have any hx of A. fib or A. flutter and EKG at admission indicated possible A. flutter - She appears to be in sinus tach on telemetry, likely related to her acute respiratory issues - Pt was started on Cardizem gtt in the ED currently at 15mg - Resume the pts home dose of Metoprolol 25mg po BID - Cardizem weaned to off. Metoprolol increased to 50mg Q12H on 04/13 - HR now stable - 2D echo (04/12) --> Estimated EF 50-55%, grade 1 diastolic dysfunction, trace MV regurg, estimated PA pressure 48.7mmHg - Telemetry (4) Cough ICD Codes: R05 - Cough Status: Acute Plan: - See above. (5) HTN (hypertension) ICD Codes: I10 - Essential (primary) hypertension Status: Chronic Plan: - Cont. Metoprolol - Clonidine PRN - add Procardia 30mg XL mg PO daily - Monitor (6) Diabetes ICD Codes: E11.9 - Type 2 diabetes mellitus without complications Status: Chronic Plan: - NovoLog SSI - Accu checks (7) Hyperlipidemia ICD Codes: E78.5 - Hyperlipidemia, unspecified Status: Chronic Assessment and Plan Patient examined. Assessment and plan formulated with Negin MONTANOC. I agree with the above. Kidney US (04/16/17) - possible hydronephrosis vs renal cyst - Can NOT do CT with contrast d/t elevated Creatinine - consider Nuclear Medicine scan - for now continue IVFs - repeat BMP in AM\ - will d/w Nephrology Problem Qualifiers (1) HTN (hypertension): Qualified Codes: I10 - Essential (primary) hypertension (2) Diabetes: Negin Rowe Apr 17, 2017 13:13 Ariel Hyman DO Apr 17, 2017 14:05
[2017-04-17] MEDS ORDERED: amLODIPine BESYLATE 5 MG TAB PO SCH (13:15)
[2017-04-17] MEDS ORDERED: PILL SPLITTER OTHER PRN (14:15)
[2017-04-17] MEDS: NIFEdipine 30 MG SUSTAINED RELEASE TAB PO SCH (15:00)
--- NOTE | 2017-04-17 15:15 | HHI.NPPN ---
Subjective History of Present Illness 76 year old with ARF/CKD , SOB and Pneumonia Review of Systems General Constitutional: Fatigue Objective Data Data 04/17/17 04/18/17 19:00 07:00 Intake Total 1063 ml Balance 1063 ml IV Total 1063 ml Vital Signs Date Time Temp Pulse Resp B/P (MAP) Pulse Ox O2 Delivery O2 Flow Rate FiO2 04/17/17 12:26 Nasal Cannula 2.00 04/17/17 12:00 97.7 79 18 179/79 (112) 96 04/17/17 08:00 97.7 75 18 174/73 (106) 93 04/17/17 07:57 95 Nasal Cannula 3.00 04/17/17 04:00 98.6 74 20 169/89 (115) 98 04/17/17 00:49 93 Nasal Cannula 3.00 04/17/17 00:05 Nasal Cannula 2.00 04/17/17 00:00 97.7 94 20 148/82 (104) 93 04/16/17 20:02 97 Nasal Cannula 2.00 04/16/17 20:00 98.8 85 20 168/80 (109) 96 04/16/17 19:54 Nasal Cannula 2.00 04/16/17 19:30 80 04/16/17 17:20 2.00 04/16/17 17:05 90 21 04/16/17 16:00 97.5 87 18 156/71 (99) 93 -: 04/15/17 0430 04/17/17 0729 Physical Exam General Appearance: Well Developed, Well Nourished Neck Neck Exam: Neck Supple Pulmonary Resp Exam: Decreased Bases, Diminished Breath Sounds Cardiology CV Exam: Irregular Gastrointestinal/Abdomen GI Exam: Soft, Non-Tender, Bowel Sounds Present Extremeties Extremities Exam: No Edema Neurologic Neuro Exam: Alert Assessment/Plan Problem List: (1) Acute renal failure ICD Codes: N17.9 - Acute kidney failure, unspecified Status: Acute Plan: cr declined 2.4, monitor she has been on antibiotic HTN Nifedipine added on Losartan She is being treated for pneumonia on Levaquin and continue to monitor urine output Check UA Urine sodium creatinine Urine protein (2) CKD (chronic kidney disease) stage 4, GFR 15-29 ml/min ICD Codes: N18.4 - Chronic kidney disease, stage 4 (severe) Status: Chronic Plan: Baseline GFR around 27 Will monitor (3) HTN (hypertension) ICD Codes: I10 - Essential (primary) hypertension Status: Chronic Plan: Monitor BP was labile (4) Diabetes ICD Codes: E11.9 - Type 2 diabetes mellitus without complications Status: Chronic Plan: Monitor blood glucose (5) Pneumonia ICD Codes: J18.9 - Pneumonia, unspecified organism Plan: Patient is being treated with Levaquin Problem Qualifiers (1) Acute renal failure: Qualified Codes: N17.9 - Acute kidney failure, unspecified (2) HTN (hypertension): Qualified Codes: I10 - Essential (primary) hypertension (3) Diabetes: (4) Pneumonia: Ever Miller MD Apr 17, 2017 15:15
[2017-04-17] MEDS: predniSONE 20 MG TAB PO SCH (20:38)
[2017-04-18] VITALS (8 sets, daily range): BP systolic 138–197; BP diastolic 69–87; PULSE 66–106; RESP 16–24; TEMP 97.1–98.2; O2SAT 92–100
[2017-04-18] MEDS: cloNIDine HCL 0.2 MG TAB PO PRN (01:18)
[2017-04-18] MEDS: 1/2 NS + KCL 20 MEQ INJ 1,000 ML IV SCH (03:16)
[2017-04-18] MEDS: RESP: IPRATROPIUM 0.5 MG/2.5 ML NEB NEB SCH ×7 (04:00→23:57)
[2017-04-18] MEDS: LEVOFLOXACIN 250 MG PREMIX INJ 50 ML IV SCH (08:48)
[2017-04-18] MEDS: ENOXAPARIN SODIUM 30 MG/0.3 ML SYRINGE SQ SCH (08:48)
[2017-04-18] MEDS: LOSARTAN 50 MG TAB PO SCH (08:50)
[2017-04-18] MEDS: ASPIRIN 81 MG CHEW TAB CHEW SCH (08:50)
[2017-04-18] MEDS: predniSONE 20 MG TAB PO SCH ×2 (08:50→22:17)
[2017-04-18] MEDS: RALOXIFENE HCL 60 MG TAB PO SCH (08:50)
[2017-04-18] MEDS: ATORVASTATIN 80 MG TAB PO SCH (08:50)
[2017-04-18] MEDS: PANTOPRAZOLE SODIUM 40 MG VIAL IV PUSH SCH ×2 (08:50→22:16)
[2017-04-18] MEDS: NIFEdipine 30 MG SUSTAINED RELEASE TAB PO SCH (08:50)
[2017-04-18] MEDS: METOPROLOL TARTRATE 50 MG TAB PO SCH ×2 (08:50→22:15)
[2017-04-18] MEDS: INSULIN ASPART SUPPLEMENTAL SCALE SQ SCH ×4 (09:04→21:00)
--- NOTE | 2017-04-18 10:24 | HHI.PR ---
Objective Vitals Vital Signs Date Time Temp Pulse Resp B/P (MAP) Pulse Ox O2 Delivery O2 Flow Rate FiO2 04/18/17 08:29 95 Nasal Cannula 2.50 04/18/17 08:11 97.5 71 16 188/81 (116) 100 04/18/17 04:46 97.1 66 20 154/71 (98) 99 04/18/17 04:25 Nasal Cannula 2.00 04/18/17 01:17 97.4 67 24 197/87 (123) 98 04/18/17 00:15 Nasal Cannula 2.00 04/17/17 21:06 98.8 92 22 148/95 (112) 98 04/17/17 20:51 94 Nasal Cannula 2.50 04/17/17 20:35 Nasal Cannula 2.00 04/17/17 16:00 97.7 79 18 165/78 (107) 96 04/17/17 15:34 Nasal Cannula 2.00 21 04/17/17 12:26 Nasal Cannula 2.00 04/17/17 12:00 97.7 79 18 179/79 (112) 96 Result Diagram: 04/15/17 0430 04/17/17 0729 Other Results Laboratory Tests Test 04/16/17 08:36 04/17/17 07:29 04/18/17 09:39 Blood Urea Nitrogen 51 MG/DL 44 MG/DL Creatinine 2.61 MG/DL 2.47 MG/DL Random Glucose 118 MG/DL 114 MG/DL Calcium Level 8.0 MG/DL 8.2 MG/DL Magnesium Level 2.5 MG/DL Sodium Level 137 MEQ/L 138 MEQ/L Potassium Level 4.7 MEQ/L 4.6 MEQ/L Chloride Level 110 MEQ/L 110 MEQ/L Carbon Dioxide Level 17.2 MEQ/L 22.0 MEQ/L Anion Gap 10 MEQ/L 6 MEQ/L Estimat Glomerular Filtration Rate 18 ML/MIN 19 ML/MIN Imaging Last Impressions Chest X-Ray 04/13/17 0600 Signed Impressions: Service Date/Time: Thursday, April 13, 2017 05:41 - CONCLUSION: No acute disease. There is no evidence of pneumonia. Angelito Walker MD Last Impressions Chest X-Ray 04/12/17 0056 Signed Impressions: Service Date/Time: Wednesday, April 12, 2017 01:34 - CONCLUSION: No acute disease. There is no evidence of pneumonia. Angelito Walker MD Objective Remarks General: NAD, AAOx3 Chest: Improved aeration bilaterally, no appreciable wheezing or rhonchi Cardiac: Regular Abd: +BS, soft ND/NT Ext: No edema A/P Problem List: (1) SOB (shortness of breath) ICD Codes: R06.02 - Shortness of breath Status: Acute Plan: - Pt is a 76 y/o WF with HTN, hyperlipidemia, diabetes and CKD stage 4, who presented to the ED at [facility] [place] with complaints of worsening SOB and cough x 1 week. - Pt initially developed sinus congestion, runny nose and a nonproductive cough. This progressively worsened over the last week and she has been feeling more SOB. She has tried OTC Mucinex and cough drops without any relief. - In the ED she was noted to be tachycardic with HR in the 130-140s upon arrival. Pt was given IV Cardizem with some improvement but her tachycardia did not resolve and she was started on Cardizem gtt. She appears to have sinus tachycardia on telemetry. She normally takes Metoprolol 25mg po BID at home and states that she has not missed any doses. - Her labs in the ED noted a normal WBC count of 6, BNP was 73. Her Cr is slightly higher than her baseline which has been around 1.7 to 1.8 for the last several months. - CXR did not reveal any acute cardio or pulmonary disease. No pneumonia noted - She has hx of tobacco use but no formal diagnosis of COPD. - At this point it is felt that the pt may be having a COPD flare which initially started with an URI infection. - Currently with sinus tach but much improved - rahel Tucker (04/12 - present) - DC IV steroids and start prednisone 30 mg PO BID 04/17 - CT thorax (04/15/17) --> nonspecific Left lung base nodule, probably inflammatory, repeat CT for stability in 3 months - anticipate d/c to home once cleared by nephrology - Walk test completed oxygenation dropped to 87% without O2- home health oxygen ordered - DVT prophylaxis with Lovenox (2) CKD (chronic kidney disease) stage 4, GFR 15-29 ml/min ICD Codes: N18.4 - Chronic kidney disease, stage 4 (severe) Status: Chronic Plan: - Pt with stage 4 CKD, follows with Dr. Miller. - Pts renal function increased to 2.68 (04/15), 2.61 (04/16), 2.47 (04/17), labs pending - Gentle IVF - Renal US reviewed and reveals Echogenic right kidney suggesting chronic medical renal disease. Left renal fossa contains what may be a hydronephrotic sac. Correlation with CT suggested if clinically appropriate. US finding discussed with radiology who will compare this to prior imaging from 2006. Unable to further evaluate with contrast due to creatinine level. - Dr. Miller consulted, appreciate input. IVF, UA, urine sodium and urine protein ordered - recheck labs in AM (3) Tachycardia ICD Codes: R00.0 - Tachycardia, unspecified Status: Acute Plan: - Pt does not have any hx of A. fib or A. flutter and EKG at admission indicated possible A. flutter - She appears to be in sinus tach on telemetry, likely related to her acute respiratory issues - Pt was started on Cardizem gtt in the ED currently at 15mg - Resume the pts home dose of Metoprolol 25mg po BID - Cardizem weaned to off. Metoprolol increased to 50mg Q12H on 04/13 - HR now stable - 2D echo (04/12) --> Estimated EF 50-55%, grade 1 diastolic dysfunction, trace MV regurg, estimated PA pressure 48.7mmHg - Telemetry (4) Cough ICD Codes: R05 - Cough Status: Acute Plan: - See above. (5) HTN (hypertension) ICD Codes: I10 - Essential (primary) hypertension Status: Chronic Plan: - Cont. Metoprolol 50 mg PO BID and Losartan 50 mg PO daily - Clonidine PRN - add Procardia 30mg XL mg PO daily - Monitor (6) Diabetes ICD Codes: E11.9 - Type 2 diabetes mellitus without complications Status: Chronic Plan: - NovoLog SSI - Accu checks (7) Hyperlipidemia ICD Codes: E78.5 - Hyperlipidemia, unspecified Status: Chronic Problem Qualifiers (1) HTN (hypertension): Qualified Codes: I10 - Essential (primary) hypertension (2) Diabetes: Negin Rowe Apr 18, 2017 10:24
[2017-04-18 10:49] LABS: BICARBONATE 18.6 MEQ/L (21.0-32.0); POTASSIUM 5.2 MEQ/L (3.5-5.1)
--- NOTE | 2017-04-18 12:55 | HHI.NPPN ---
Subjective History of Present Illness 76 year old with ARF/CKD , SOB and Pneumonia Review of Systems General Constitutional: Fatigue Objective Data Data Vital Signs Date Time Temp Pulse Resp B/P (MAP) Pulse Ox O2 Delivery O2 Flow Rate FiO2 04/18/17 12:19 97.7 85 18 138/69 (92) 96 04/18/17 08:29 95 Nasal Cannula 2.50 04/18/17 08:11 97.5 71 16 188/81 (116) 100 04/18/17 04:46 97.1 66 20 154/71 (98) 99 04/18/17 04:25 Nasal Cannula 2.00 04/18/17 01:17 97.4 67 24 197/87 (123) 98 04/18/17 00:15 Nasal Cannula 2.00 04/17/17 21:06 98.8 92 22 148/95 (112) 98 04/17/17 20:51 94 Nasal Cannula 2.50 04/17/17 20:35 Nasal Cannula 2.00 04/17/17 16:00 97.7 79 18 165/78 (107) 96 04/17/17 15:34 Nasal Cannula 2.00 21 -: 04/15/17 0430 04/18/17 0939 Physical Exam General Appearance: Well Developed, Well Nourished Neck Neck Exam: Neck Supple Pulmonary Resp Exam: Decreased Bases, Diminished Breath Sounds Cardiology CV Exam: Irregular Gastrointestinal/Abdomen GI Exam: Soft, Non-Tender, Bowel Sounds Present Extremeties Extremities Exam: No Edema Neurologic Neuro Exam: Alert Assessment/Plan Problem List: (1) Acute renal failure ICD Codes: N17.9 - Acute kidney failure, unspecified Status: Acute Plan: cr declined 2.1, monitor she has been on antibiotic HTN improved Nifedipine Losartan She is being treated for pneumonia on Levaquin and continue to monitor urine output K 5.2 monitor dc IVF with KCL OK to discharge and follow up (2) CKD (chronic kidney disease) stage 4, GFR 15-29 ml/min ICD Codes: N18.4 - Chronic kidney disease, stage 4 (severe) Status: Chronic Plan: Baseline GFR around 27 Will monitor (3) HTN (hypertension) ICD Codes: I10 - Essential (primary) hypertension Status: Chronic Plan: Monitor BP was labile (4) Diabetes ICD Codes: E11.9 - Type 2 diabetes mellitus without complications Status: Chronic Plan: Monitor blood glucose (5) Pneumonia ICD Codes: J18.9 - Pneumonia, unspecified organism Plan: Patient is being treated with Levaquin Problem Qualifiers (1) Acute renal failure: Qualified Codes: N17.9 - Acute kidney failure, unspecified (2) HTN (hypertension): Qualified Codes: I10 - Essential (primary) hypertension (3) Diabetes: (4) Pneumonia: Ever Miller MD Apr 18, 2017 12:55
[2017-04-18] MEDS ORDERED: METO-309 PO (15:26)
[2017-04-18] MEDS ORDERED: COZA50TA PO (15:26)
[2017-04-18] MEDS ORDERED: NIFE30TA8 PO (15:26)
[2017-04-18] MEDS ORDERED: PRED10 PO (15:26)
--- NOTE | 2017-04-18 15:38 | HHI.DS ---
Discharge Summary Admission Date Apr 12, 2017 at 05:19 Discharge Date: Apr 19, 2017 Admitting Diagnosis Tachycardia, r/o PE, tachypnea (1) SOB (shortness of breath) ICD Codes: R06.02 - Shortness of breath Status: Acute (2) CKD (chronic kidney disease) stage 4, GFR 15-29 ml/min ICD Codes: N18.4 - Chronic kidney disease, stage 4 (severe) Status: Chronic (3) Tachycardia ICD Codes: R00.0 - Tachycardia, unspecified Status: Acute (4) Cough ICD Codes: R05 - Cough Status: Acute (5) HTN (hypertension) ICD Codes: I10 - Essential (primary) hypertension Status: Chronic (6) Diabetes ICD Codes: E11.9 - Type 2 diabetes mellitus without complications Status: Chronic (7) Hyperlipidemia ICD Codes: E78.5 - Hyperlipidemia, unspecified Status: Chronic Consultants Dr. Miller Procedures none Brief History Ms. Gary is a pleasant 76 y/o WF with HTN, hyperlipidemia, diabetes and CKD stage 4, who presented to the ED at [facility] [place] with complaints of worsening SOB and cough. She reports that around 1 week ago she developed sinus congestion, runny nose and a nonproductive cough. This progressively worsened over the last week and she has been feeling more SOB. Her cough has been worsening to the point where she is dry heaving when she coughs. She has not been eating much but has been drinking plenty of fluids. She denies any cough related to food or fluid intake or any difficulty swallowing. She has tried OTC Mucinex and cough drops without any relief. She denies any fevers or chills. Her cough and SOB worsened yesterday and this prompted her to go to the ED for further evaluation. In the ED she was noted to be tachycardic with HR in the 130 -140s upon arrival. Pt was given IV Cardizem with some improvement but her tachycardia did not resolve and she was started on Cardizem gtt. She appears to be in sinus tachycardia on telemetry. She normally takes Metoprolol 25mg po BID at home and states that she has not missed any doses. Her labs in the ED noted a normal WBC count of 6, BNP was 73. Her Cr is slightly higher than her baseline which has been around 1.7 to 1.8 for the last several months. CXR did not reveal any acute cardio or pulmonary disease. She denies any chest pain, palpitations, fevers/chills, dizziness, weakness. She has a hx of tobacco use, smoked 1/2ppd x 45 years, but denies any diagnosis of COPD. Denies any hx of CHF or CAD. CBC/BMP: 04/15/17 0430 04/18/17 0939 Significant Findings Laboratory Tests Test 04/16/17 08:36 04/17/17 07:29 04/18/17 09:39 Blood Urea Nitrogen 51 MG/DL (7-18) 44 MG/DL (7-18) 38 MG/DL (7-18) Creatinine 2.61 MG/DL (0.50-1.00) 2.47 MG/DL (0.50-1.00) 2.18 MG/DL (0.50-1.00) Random Glucose 118 MG/DL (74-106) 114 MG/DL (74-106) 107 MG/DL (74-106) Calcium Level 8.0 MG/DL (8.5-10.1) 8.2 MG/DL (8.5-10.1) Chloride Level 110 MEQ/L (98-107) 110 MEQ/L (98-107) 108 MEQ/L (98-107) Carbon Dioxide Level 17.2 MEQ/L (21.0-32.0) 18.6 MEQ/L (21.0-32.0) Estimat Glomerular Filtration Rate 18 ML/MIN (>89) 19 ML/MIN (>89) 22 ML/MIN (>89) Potassium Level 5.2 MEQ/L (3.5-5.1) Imaging Last Impressions Renal Ultrasound 04/16/17 0000 Signed Impressions: Service Date/Time: Sunday, April 16, 2017 20:54 - CONCLUSION: Echogenic right kidney suggesting chronic medical renal disease. Left renal fossa contains what may be a hydronephrotic sac. Correlation with CT suggested if clinically appropriate. Steve Shin MD Chest CT 04/15/17 0800 Signed Impressions: Service Date/Time: Saturday, April 15, 2017 21:37 - CONCLUSION: Left lung base nodule and parenchymal infiltrates most likely inflammatory, repeat noncontrast chest CT is suggested in 3 months as a conservative follow up. Jorge Narvaez MD Chest X-Ray 04/13/17 0600 Signed Impressions: Service Date/Time: Thursday, April 13, 2017 05:41 - CONCLUSION: No acute disease. There is no evidence of pneumonia. Angelito Walker MD PE at Discharge General: NAD, AAOx3 Chest: Improved aeration bilaterally, no appreciable wheezing or rhonchi Cardiac: Regular Abd: +BS, soft ND/NT Ext: No edema Hospital Course SOB (shortness of breath) - Pt is a 76 y/o WF with HTN, hyperlipidemia, diabetes and CKD stage 4, who presented to the ED at [facility] [place] on 04/12/17 with complaints of worsening SOB and cough x 1 week. - Pt initially developed sinus congestion, runny nose and a nonproductive cough. This progressively worsened over the last week and she has been feeling more SOB. She has tried OTC Mucinex and cough drops without any relief. - In the ED she was noted to be tachycardic with HR in the 130-140s upon arrival. Pt was given IV Cardizem with some improvement but her tachycardia did not resolve and she was started on Cardizem gtt. She appears to have sinus tachycardia on telemetry. She normally takes Metoprolol 25mg po BID at home and states that she has not missed any doses. - Her labs in the ED noted a normal WBC count of 6, BNP was 73. Her Cr is slightly higher than her baseline which has been around 1.7 to 1.8 for the last several months. - CXR did not reveal any acute cardio or pulmonary disease. No pneumonia noted - She has hx of tobacco use but no formal diagnosis of COPD. - At this point it is felt that the pt may be having a COPD flare which initially started with an URI infection. - Currently with sinus tach but much improved - snowbs - Levaquin (04/12 - 04/18) - DC IV steroids and start prednisone 30 mg PO BID 04/17, taper as outpatient - CT thorax (04/15/17) --> nonspecific Left lung base nodule, probably inflammatory, repeat CT for stability in 3 months - Walk test completed oxygenation dropped to 87% without O2- home health oxygen ordered - DVT prophylaxis with Lovenox NONA on CKD (chronic kidney disease) stage 4, GFR 15-29 ml/min - Pt with stage 4 CKD, follows with Dr. Miller. - Pts renal function increased to 2.68 (04/15), 2.61 (04/16), 2.47 (04/17), 2.18 (04/18) - Gentle IVF - Renal US reviewed and reveals Echogenic right kidney suggesting chronic medical renal disease. Left renal fossa contains what may be a hydronephrotic sac. Correlation with CT suggested if clinically appropriate. US finding discussed with radiology who will compare this to prior imaging from 2006. Unable to further evaluate with contrast due to creatinine level. - Dr. Miller consulted, appreciate input - recheck labs in AM Tachycardia - Pt does not have any hx of A. fib or A. flutter and EKG at admission indicated possible A. flutter - She appears to be in sinus tach on telemetry, likely related to her acute respiratory issues - Pt was started on Cardizem gtt in the ED currently at 15mg - Resume the pts home dose of Metoprolol 25mg po BID - Cardizem weaned to off. Metoprolol increased to 50mg Q12H on 04/13 - HR now stable - 2D echo (04/12) --> Estimated EF 50-55%, grade 1 diastolic dysfunction, trace MV regurg, estimated PA pressure 48.7mmHg - Telemetry Cough - See above. HTN (hypertension) - Cont. Metoprolol 50 mg PO BID and Losartan 50 mg PO daily - Clonidine PRN - added Procardia 30mg XL mg PO daily - Monitor Diabetes - NovoLog SSI - Accu checks Hyperlipidemia Chronic Pt Condition on Discharge: Stable Discharge Disposition: Disch w/ Home Health Serv Discharge Instructions DIET: Follow Instructions for: Diabetic Diet Activities you can perform: Regular-No Restrictions Follow up Referrals: Nephrology - [address] Miller PCP Follow-up - [address] Carey New Medications: Oxygen (O2) (Oxygen (O2)) Device LITER JOSE LUIS.CANULA CONTINUOUS for Prevent Hypoxemia, #2 Oxygen Concentrator Portable Gaseous 2 L/min via Nasal Canula Continuous For 1 month Oxygen tank (Oxygen tank) 1 Ea Tank LITER JOSE LUIS.CANULA CONTINUOUS for HYPOXEMIA PREVENTION, #2 Oxygen Concentrator Portable Gaseous 2 L/min via Nasal Cannula Continuous For 1 month Prednisone (Prednisone) 10 Mg Tab 10 MG PO DIRECTED for steroid taper, #27 TAB 0 Refills take 30 mg PO twice a day for one day then take 20 mg twice a day for three days then take 10 mg twice a day for three days then take 10 mg twice a day for three days then stop Losartan (Cozaar) 50 Mg Tab 50 MG PO DAILY for Blood Pressure Management, #30 TAB 0 Refills Metoprolol Tartrate (Lopressor) 50 Mg Tab 50 MG PO Q12HR for blood pressure, #60 TAB 0 Refills Nifedipine ER 24 HR (Nifedipine ER 24 HR) 30 Mg Tab 30 MG PO DAILY for blood pressure, #30 TAB 0 Refills Continued Medications: Aspirin (Aspirin) 81 Mg Chew 81 MG CHEW DAILY, TAB 0 Refills Cholecalciferol (Vitamin D-1000) 1,000 Unit Tab 2000 UNITS PO DAILY for Nutritional Supplement, #1 BOTTLE 0 Refills Glimepiride (Glimepiride) 2 Mg Tab 2 MG PO DAILY for Blood Sugar Management, #30 TAB 0 Refills Take with breakfast or first main meal Raloxifene (Raloxifene) 60 Mg Tab 60 MG PO DAILY for Chemotherapy Management, #30 TAB 0 Refills Rosuvastatin (Rosuvastatin) 40 Mg Tab 40 MG PO DAILY for Cholesterol Management, #30 TAB 0 Refills Discontinued Medications: Clonidine (Clonidine) 0.3 Mg Tab 0.3 MG PO DAILY for Blood Pressure Management, #60 TAB 0 Refills Losartan (Losartan) 25 Mg Tab 25 MG PO DAILY for Blood Pressure Management, #30 TAB 0 Refills Metoprolol Tartrate (Metoprolol Tartrate) 25 Mg Tab 25 MG PO BID, #60 TAB 0 Refills Additional Information Patient examined. Assessment and plan formulated with Negin Rowe PA-C. I agree with the above. Negin Rowe Apr 18, 2017 15:38 Ariel Hyman DO Apr 20, 2017 22:58
--- NOTE | 2017-04-18 15:38 | HHI.DCPOC ---
Discharge Care Plan Diagnosis: (1) SOB (shortness of breath) (2) Cough (3) HTN (hypertension) (4) Acute on chronic kidney failure Goals to Promote Your Health * To prevent worsening of your condition and complications * To maintain your health at the optimal level Directions to Meet Your Goals Take your medications as prescribed Follow your dietary instruction Follow activity as directed Keep your appointments as scheduled Take your immunizations and boosters as scheduled If your symptoms worsen call your PCP, if no PCP go to Urgent Care Center or Emergency Room Smoking is Dangerous to Your Health. Avoid second hand smoke Call the 24-hour hour crisis hotline for domestic abuse at Negin Rowe Apr 18, 2017 15:38 Ariel Hyman DO Apr 20, 2017 22:58
[2017-04-18] MEDS ORDERED: OXYGENTANK NAS.CANULA (15:40)
[2017-04-18] MEDS ORDERED: OXYGENDME NAS.CANULA (15:40)
[2017-04-19] VITALS: BP 152/74; PULSE 97; RESP 18; TEMP 98; O2SAT 97
[2017-04-19 04:00] VITALS: BP 165/79; PULSE 83; RESP 18; TEMP 97.9; O2SAT 96
[2017-04-19] MEDS: RESP: IPRATROPIUM 0.5 MG/2.5 ML NEB NEB SCH ×3 (04:50→12:13)
[2017-04-19] MEDS: INSULIN ASPART SUPPLEMENTAL SCALE SQ SCH (08:00)
[2017-04-19 08:01] VITALS: O2SAT 98
[2017-04-19 08:11] VITALS: BP 131/58; PULSE 97; RESP 18; TEMP 97.8; O2SAT 95
[2017-04-19] MEDS: ATORVASTATIN 80 MG TAB PO SCH (08:30)
[2017-04-19] MEDS: NIFEdipine 30 MG SUSTAINED RELEASE TAB PO SCH (08:30)
[2017-04-19] MEDS: predniSONE 20 MG TAB PO SCH (08:30)
[2017-04-19] MEDS: ASPIRIN 81 MG CHEW TAB CHEW SCH (08:31)
[2017-04-19] MEDS: LOSARTAN 50 MG TAB PO SCH (08:31)
[2017-04-19] MEDS: METOPROLOL TARTRATE 50 MG TAB PO SCH (08:31)
[2017-04-19] MEDS: PANTOPRAZOLE SODIUM 40 MG VIAL IV PUSH SCH (08:31)
[2017-04-19] MEDS: RALOXIFENE HCL 60 MG TAB PO SCH (08:32)
[2017-04-19] MEDS: ENOXAPARIN SODIUM 30 MG/0.3 ML SYRINGE SQ SCH (08:41)
== END 2017-04-19 14:12 | disposition home health service (06) | DRG 191 ==
LOC: NEPE 00:36 → NEDA 05:19 → OBSVTOIN 05:19 → INTOOBSV 05:19 → HCVI 08:47 → HCIN 04-13 14:09 → N05B 04-15 15:19
PROVIDERS: ADMIT Hospitalist; ATTEND Hospitalist
DX: J44.1 Chronic obstructive pulmonary disease with (acute) exacerbation (principal); N17.9 Acute kidney failure, unspecified; E11.22 Type 2 diabetes mellitus with diabetic chronic kidney disease; E86.0 Dehydration; N18.4 Chronic kidney disease, stage 4 (severe); K21.9 Gastro-esophageal reflux disease without esophagitis; E55.9 Vitamin D deficiency, unspecified; J06.9 Acute upper respiratory infection, unspecified; E78.5 Hyperlipidemia, unspecified; I12.9 Hypertensive chronic kidney disease with stage 1 through stage 4 chronic kidney disease, or unspecified chronic kidney disease; R00.0 Tachycardia, unspecified; Z87.891 Personal history of nicotine dependence; Z79.82 Long term (current) use of aspirin; Z79.84 Long term (current) use of oral hypoglycemic drugs
CPT/HCPCS: 71020; 71250; 76775; 76937; 80048; 80053; 81001; 82948; 83735; 83880; 84484; 85025; 85610; 85730; 90686; 93005; 93306; 94150; 94620; 94640; 94664; 94667; 94668; 96361; 96365; 96375; C9113; J0696; J1650; J1815; J1956; J2930; J7030; J7040; J7512; J7608; J7613; J7644; Q2038

== ENCOUNTER 2017-05-14 01:39 | Inpatient (IN) | payer MEDICARE ==
[2017-05-14] VITALS (10 sets, daily range): BP systolic 112–154; BP diastolic 52–68; PULSE 80–115; RESP 18–22; TEMP 98.1–99.5; O2SAT 92–98
[~2017-05-14 01:39] MED LIST changes: +ASPI-516 CHEW; -ASPI81 PO; -CLON-481 PO; +COZA50TA PO; +METO-309 PO; -METO50TA PO; +NIFE30TA8 PO; -OMEP20CA5 PO; +PRED10 PO; +RALO1TAB PO; -RALO1TAB13 PO; +ROSU1TAB10 PO; -ROSU40 PO; +VITA1000 PO
[2017-05-14] MEDS ORDERED: SODIUM CHLORIDE 0.9% FLUSH 10 ML FLUSH IVF PRN (02:00)
[2017-05-14 02:12] LABS: AUTOMATED NEUTROPHIL # 6.9 TH/MM3 (1.8-7.7); BASOPHIL % 0.2 % (0.0-2.0); EOSINOPHIL % 0.5 % (0.0-4.0); HEMATOCRIT 37.5 % (35.0-46.0); HEMO FLAGS DIFF FINAL; LYMPH % 1.8 % (9.0-44.0); LYMPHOCYTE # 0.1 TH/MM3 (1.0-4.8); MEAN CORPUSCULAR HGB CONC 32.6 % (32.0-36.0); MONO % 5.7 % (0.0-8.0); NEUT % 91.8 % (16.0-70.0); PLATELET COUNT 200 TH/MM3 (150-450); RED BLOOD COUNT 3.95 MIL/MM3 (4.00-5.30); RED CELL DISTRIBUTION WIDTH 17.2 % (11.6-17.2); WHITE BLOOD COUNT 7.5 TH/MM3 (4.0-11.0)
--- NOTE | 2017-05-14 02:13 | PD ---
HPI Chief Complaint: Neuro Symptoms/ Deficits Time Seen by Provider: 01:54 Travel History International Travel<30 days: No Contact w/Intl Traveler<30days: No Traveled to known affect area: No History of Present Illness HPI 76-year-old female presents to the emergency department by EMS transport from home where reportedly she awakened from sleep around 12:30 AM complaining of generalized weakness and some difficulty with her speech. Patient states that she does not recall what she was awakened from sleep but when she tried to get up she noticed she had weakness in both of her arms and her legs. Patient was able to however contact 911 and while talking to the dispatcher noticed she was having some difficulty with her speech. Upon EMS arrival patient was noted to have a blood sugar of 53 and was given D 25. Patient's speech difficulty has resolved back to normal and patient's arm and leg sensation of weakness has resolved. 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 Patient does not report any recent fall or injury. Patient states she was last normal around 10: 30 PM when she went to sleep. Patient's had no recent febrile illness. Patient does not report any chest pain or shortness of breath. Patient's had no nausea or vomiting. No report of abdominal pain. Patient is diabetic by history. Patient was recently hospitalized for increased heart rate and evaluation for PE which was negative. Patient is taking no blood thinning agents except aspirin. Patient is a nonsmoker. Patient denies any headache altered mentation visual disturbance presently no speech disturbance no difficulty swallowing no chest pain no palpitations no shortness of breath no nausea no vomiting no abdominal pain and currently no upper or lower extremity numbness tingling or weakness besides her chronic left upper extremity weakness. Patient is unable to identify exacerbating or alleviating factors however was noted to have movement and resolution of most of her symptoms after receiving a bolus of IV dextrose. [facility] Past Medical History Narrative Medical CAD, CVA, carotid stent, diabetes, carotid endarterectomy, kidney stones, Vas- Cath, dialysis-; no alcohol use no tobacco use; nursing notes reviewed Asthma: No Blood Disorders: No Cancer: No Cardiac Catheterization: Yes (stent in neck) Cardiovascular Problems: Yes ("LEFT CAROTID STENT DONE BY ") High Cholesterol: Yes COPD: Yes Cerebrovascular Accident: Yes (left ssided weakness ,) Diabetes: Yes Patient Takes Glucophage: Yes (GLIMEPIRIDE) Dialysis: Yes (TU,TR,SA) Diminished Hearing: No Endocrine: Yes Gastrointestinal Disorders: Yes GERD: Yes Glaucoma: No Genitourinary: Yes (dialysis for a year) Hepatitis: No Hiatal Hernia: Yes Hypertension: Yes Kidney Stones: Yes (LITHOTRIPSY) Musculoskeletal: No Psychiatric: No Respiratory: No Renal Failure: Yes (HEMODIALYSIS) Thyroid Disease: No Tetanus Vaccination: Unknown ?: Not Menopausal: Yes Past Surgical History Body Medical Devices: VAS CATH Cardiac Surgery: Yes (aniceto carotid endartectomy) Eye Surgery: Yes (CATARACT BILAT EYE) Genitourinary Surgery: Yes (INSERTION STENT LEFT KIDNEY; REMOVAL STENT) Pacemaker: No Other Surgery: Yes (BILATERAL CAROTID ENDARTERECTOMY.) Social History Alcohol Use: No Tobacco Use: No Substance Use: No Allergies-Medications (Allergen,Severity, Reaction): Coded Allergies: niacin (Unverified Allergy, Mild, HIVES, ITCHING, 05/14/17) adhesive (Unverified Allergy, Unknown, 05/14/17) alendronate sodium (Unverified Allergy, Unknown, 05/14/17) calcitonin (Unverified Allergy, Unknown, 05/14/17) Reported Meds & Prescriptions Reported Meds & Active Scripts Active Cozaar (Losartan Potassium) 50 Mg Tab 50 Mg PO DAILY Nifedipine ER 24 HR (Nifedipine) 30 Mg Tab 30 Mg PO DAILY Lopressor (Metoprolol Tartrate) 50 Mg Tab 50 Mg PO Q12HR Reported Crestor (Rosuvastatin Calcium) 40 Mg Tab 40 Mg PO DAILY Vitamin D-1000 (Cholecalciferol) 1,000 Unit Tab 2,000 Units PO DAILY Rosuvastatin (Rosuvastatin Calcium) 40 Mg Tab 40 Mg PO DAILY Raloxifene (Raloxifene HCl) 60 Mg Tab 60 Mg PO DAILY Glimepiride 2 Mg Tab 2 Mg PO DAILY Take with breakfast or first main meal Aspirin 81 Mg Chew 81 Mg CHEW DAILY Review of Systems Except as stated in HPI: all other systems reviewed are Neg General / Constitutional: No: Fever, Chills Eyes: No: Visual changes HENT: No: Headaches, Vertigo, Neck Pain Cardiovascular: No: Chest Pain or Discomfort, Palpitations, Diaphoresis Respiratory: No: Shortness of Breath Gastrointestinal: No: Vomiting, Abdominal Pain Genitourinary: No: Flank Pain Musculoskeletal: No: Myalgias, Arthralgias Skin: No Rash Neurologic: Positive: Weakness, Focal Abnormalities (bilateral upper extremity' s and lower extremities), Slurred Speech (transient), No: Dizziness, Syncope, Coordination Problem, Ataxia, Headache, Change in Mentation, Paresthesia, Incontinence, Sensory Disturbance Psychiatric: No: Anxiety Hematologic/Lymphatic: No: Lymph Node Enlargement Physical Exam Narrative GENERAL: Well-developed well-nourished articulate female in no acute distress no respiratory distress; GCS 15 SKIN: Warm and dry. HEAD: Atraumatic. Normocephalic. EYES: Pupils equal and round. No scleral icterus. No injection or drainage. ENT: No nasal bleeding or discharge. Mucous membranes pink and moist. NECK: Trachea midline. No JVD. CARDIOVASCULAR: Regular rate and rhythm. RESPIRATORY: No accessory muscle use. Clear to auscultation. Breath sounds equal bilaterally. GASTROINTESTINAL: Abdomen soft, non-tender, nondistended. Hepatic and splenic margins not palpable. MUSCULOSKELETAL: Extremities without clubbing, cyanosis, or edema. No obvious deformities. NEUROLOGICAL: Awake and alert. No obvious cranial nerve deficits no facial droop. Motor grossly within normal limits. Five out of 5 muscle strength in the arms and legs except for chronic residual left upper extremity weakness 4-5 over 5. No pronator drift. No limb ataxia of the lower extremities. Normal speech. PSYCHIATRIC: Appropriate mood and affect; insight and judgment normal. Data Data Last Documented VS Vital Signs Date Time Temp Pulse Resp B/P (MAP) Pulse Ox O2 Delivery O2 Flow Rate FiO2 05/14/17 01:43 99.0 115 20 145/67 (93) 98 Orders Orders Electrocardiogram (05/14/17 01:54) Prothrombin Time / Inr (Pt) (05/14/17 01:54) Act Partial Throm Time (Ptt) (05/14/17 01:54) Complete Blood Count With Diff (05/14/17 01:54) Basic Metabolic Panel (Bmp) (05/14/17 01:54) Creatine Kinase (Cpk) (05/14/17 01:54) Troponin I (05/14/17 01:54) Urinalysis - C+S If Indicated (05/14/17 01:54) Ct Brain W/O Iv Contrast(Rout) (05/14/17 01:54) Chest, Single Ap (05/14/17 01:54) Ecg Monitoring (05/14/17 01:54) Iv Access Insert/Monitor (05/14/17 01:54) Oximetry (05/14/17 01:54) Sodium Chloride 0.9% Flush (Ns Flush) (05/14/17 02:00) Lactic Acid (05/14/17 01:54) Urine Culture (05/14/17 02:10) Sodium Chlorid 0.9% 500 Ml Inj (Ns 500 M (05/14/17 03:15) Lactic Acid (05/14/17 04:00) Blood Culture (05/14/17 03:03) Labs Laboratory Tests Test 05/14/17 02:00 05/14/17 02:10 White Blood Count 7.5 TH/MM3 Red Blood Count 3.95 MIL/MM3 Hemoglobin 12.2 GM/DL Hematocrit 37.5 % Mean Corpuscular Volume 95.0 FL Mean Corpuscular Hemoglobin 31.0 PG Mean Corpuscular Hemoglobin Concent 32.6 % Red Cell Distribution Width 17.2 % Platelet Count 200 TH/MM3 Mean Platelet Volume 8.4 FL Neutrophils (%) (Auto) 91.8 % Lymphocytes (%) (Auto) 1.8 % Monocytes (%) (Auto) 5.7 % Eosinophils (%) (Auto) 0.5 % Basophils (%) (Auto) 0.2 % Neutrophils # (Auto) 6.9 TH/MM3 Lymphocytes # (Auto) 0.1 TH/MM3 Monocytes # (Auto) 0.4 TH/MM3 Eosinophils # (Auto) 0.0 TH/MM3 Basophils # (Auto) 0.0 TH/MM3 CBC Comment DIFF FINAL Differential Comment Prothrombin Time 10.4 SEC Prothromb Time International Ratio 0.9 RATIO Activated Partial Thromboplast Time 28.6 SEC Blood Urea Nitrogen 25 MG/DL Creatinine 2.96 MG/DL Random Glucose 373 MG/DL Calcium Level 9.1 MG/DL Sodium Level 131 MEQ/L Potassium Level 4.0 MEQ/L Chloride Level 96 MEQ/L Carbon Dioxide Level 22.2 MEQ/L Anion Gap 13 MEQ/L Estimat Glomerular Filtration Rate 15 ML/MIN Lactic Acid Level 3.2 mmol/L Total Creatine Kinase 35 U/L Troponin I 0.03 NG/ML Urine Color YELLOW Urine Turbidity HAZY Urine pH 5.5 Urine Specific [place]elin 1.009 Urine Protein 100 mg/dL Urine Glucose (UA) 300 mg/dL Urine Ketones 10 mg/dL Urine Occult Blood SMALL Urine Nitrite NEG Urine Bilirubin NEG Urine Urobilinogen LESS THAN 2.0 MG/DL Urine Leukocyte Esterase NEG Urine RBC 1 /hpf Urine WBC 6 /hpf Urine Amorphous Sediment RARE Urine Bacteria FEW /hpf Urine Mucus FEW /lpf Microscopic Urinalysis Comment CATH-CULTURE IND MDM Medical Decision Making Medical Screen Exam Complete: Yes Emergency Medical Condition: Yes Medical Record Reviewed: Yes Interpretation(s) EKG: Sinus tachycardia rate [address] elevation minimal ST depression in artifact present Last Impressions Head CT 05/14/17153 Signed Impressions: Service Date/Time: Sunday, May 14, 2017 02:29 - CONCLUSION: 1. No bleed or evidence of acute infarct. 2. 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 Steve Cotton MD Chest X-Ray 05/14/17153 Signed Impressions: Service Date/Time: Sunday, May 14, 2017 02:07 - CONCLUSION: No evidence of acute cardiopulmonary disease. Steve Cotton MD CBC & BMP Diagram 05/14/17 02:00 Calcium Level 9.1 Vital Signs Date Time Temp Pulse Resp B/P (MAP) Pulse Ox O2 Delivery O2 Flow Rate FiO2 05/14/17 01:43 99.0 115 20 145/67 (93) 98 Troponin I 0.03, within normal range Urinalysis positive WBCs few bacteria and no squamous epithelial cells positive glucosuria ketonuria and proteinuria; cultures indicated Differential Diagnosis Weakness, TIA, CVA, hypoglycemia, electrolyte disturbance, arrhythmia, sepsis, ACS Narrative Course patient placed on satellite project site monitor IV access obtained specimens collected and sent for resulting EKG performed due to sinus tachycardia with no acute injury, ST elevation, or ectopy noted At 2:13 AM patient feels well no complaint of speech disturbance no complaint of new upper or lower extremity numbness tingling or weakness. Sepsis Criteria SIRS Criteria (2 or more): Heart rate over 90 Sepsis Criteria (SIRS+source): Infect source susp/known (urine) Severe Sepsis (+one): Lactate >2 Physician Communication Physician Communication Discussed case with Dr. Morales admit OBS to Dr. Hyman Diagnosis Primary Impression: Generalized weakness Additional Impressions: Hypoglycemia UTI (urinary tract infection) Acute on chronic kidney failure Admitting Information Admitting Physician Requests: Observation Silvia Evangelista MD May 14, 2017 02:13
[2017-05-14 02:21] LABS: APTT (PATIENT) 28.6 SEC (24.3-30.1); INTERNATIONAL NORMALIZED RATIO 0.9 RATIO; PROTHROMBIN TIME - PATIENT 10.4 SEC (9.8-11.6)
--- NOTE | 2017-05-14 02:21 | RADRPT ---
EXAM DATE/TIME: 05/14/2017 02:07 [facility] COMPARISON: CHEST PA & LAT, April 13, 2017, 5:41. INDICATIONS : Short of breath. MEDICAL HISTORY : Stroke. Diabetes mellitus type II. Hypercholesterolemia. Hypertension. SURGICAL HISTORY : Bilateral Carotid Endardectomy ENCOUNTER: Initial ACUITY: 1 day PAIN SCORE: 0/10 LOCATION: Bilateral chest FINDINGS: A single view of the chest demonstrates the lungs to be symmetrically aerated without evidence of mas s, infiltrate or effusion. The cardiomediastinal contours are unremarkable. Osseous structures are intact. CONCLUSION: No evidence of acute cardiopulmonary disease. Steve Cotton MD on May 14, 2017 at 2:19 Board Certified Radiologist. This report was verified electronically.
[2017-05-14 02:25] LABS: BICARBONATE 22.2 MEQ/L (21.0-32.0)
[2017-05-14 02:28] LABS: BACTERIA, URINE FEW /hpf; BLOOD, URINE SMALL (NEG); GLUCOSE,URINE 300 mg/dL (NEG); KETONE, URINE 10 mg/dL (NEG); MUCUS URINE FEW /lpf (OCC); NITRITE,URINE NEG (NEG); PH, URINE 5.5 (5.0-8.5); URINE COLOR YELLOW (YELLW/STRAW)
[2017-05-14 02:30] LABS: COMMENT (UR) CATH-CULTURE IND; CULTURE IF INDICATED CATH CULTURE IND
--- NOTE | 2017-05-14 02:42 | RADRPT ---
EXAM DATE/TIME: 05/14/2017 02:29 [facility] COMPARISON: No previous studies available for comparison. INDICATIONS : Unable to talk or move arms. RADIATION DOSE: 24.74 CTDIvol (mGy) MEDICAL HISTORY : Cardiovascular disease. Cerebrovascular disease. Hypertension. SURGICAL HISTORY : Coronary artery stent. ENCOUNTER: Initial ACUITY: 1 day PAIN SCALE: 0/10 LOCATION: Bilateral cranial TECHNIQUE: Multiple contiguous axial images were obtained of the head. Using automated exposure control and adj ustment of the mA and/or kV according to patient size, radiation dose was kept as low as reasonably a chievable to obtain optimal diagnostic quality images. DICOM format image data is available electro nically for review and comparison. FINDINGS: No intracranial hemorrhage or hematoma. No mass, mass effect or midline shift. Chronic appearing and severe low attenuation seen in the periventricular white matter. There is an ol d infarct with encephalomalacia in the right middle cerebral artery distribution. No definite acute i schemic event. CONCLUSION: 1. No bleed or evidence of acute infarct. 2. 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 Steve Cotton MD on May 14, 2017 at 2:39 Board Certified Radiologist. This report was verified electronically.
[2017-05-14] MEDS ORDERED: ROSU40 PO (02:57)
[2017-05-14] MEDS ORDERED: SODIUM CHLORID 0.9% 500 ML INJ 500 ML IV ONE (03:15)
[2017-05-14] MEDS ORDERED: cefTRIAXone INJ 1,000 MG in SODIUM CHLORIDE 0.9% INJ 100 ML IV ONE (03:30)
[2017-05-14] MEDS ORDERED: GLUCAGON 1 MG/ML VIAL OTHER PRN ×2 (03:30→09:00)
[2017-05-14] MEDS ORDERED: DEXTROSE 50% IN WATER 50 ML VIAL(D50) IV PUSH PRN ×2 (03:30→09:00)
[2017-05-14] MEDS: SODIUM CHLOR 0.9% 1000 ML INJ 1,000 ML IV SCH ×2 (04:25→17:10)
--- NOTE | 2017-05-14 07:58 | HHI.HP ---
HPI Service [facility] Hospitalists Primary Care Physician Reginaldo Carey MD, PhD Admission Diagnosis generalized weakness; DM w/hypoglycemia;uti Chief Complaint: generalized weakness, hypoglycemia Travel History International Travel<30 Days: No Contact w/Intl Traveler <30 Da: No Traveled to Known Affected Are: No History of Present Illness Ms. Gary is a pleasant 76 y/o WF with HTN, hyperlipidemia, diabetes and CKD stage 4, who presented to the ED at [facility] [place] [facility] on 05/13/17 with complaints of awakening around 12:30 AM with generalized weakness and slurred speech. Patient was able to call 911. Upon EMS arrival patient's blood glucose was noted to be 53, she was then given D25 and symptoms resolved. Patient now feels that she is at her baseline. Patient does have history of CVA with residual LUE and slight LLE weakness. Patient that she has not been eating much for the past few days. Patient states, "I just don't have an appetite." Patient ate oatmeal last night for dinner. Patient also reports that she continued taking her regular diabetic medication glimepiride 2 mg tables 1 tablets daily. Patient denies recent fevers, chills, N/V/D/C, shortness of breath of chest pain. Patient was recently treated in the hospital on 04/12/17 for SOB, cough and tachycardic with HR in the 130-140s. Which appears to have resolved with steroid taper which was completed and increase in Metoprolol to 50 mg BID. Patient states, she may need to move to SNF or [facility]. Patient has no family here , her family is in [place]. Patient also has limited support from her neighbor as she is also elderly. 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 Vitamin D deficiency Past Surgical History Bilateral Carotid endarterectomy, 1995, 1997 Bilateral cataract surgery Cystoscopy for stent placement and removal D&C Reported Medications Cozaar (Losartan Potassium) 50 Mg Tab 50 Mg PO DAILY Nifedipine ER 24 HR (Nifedipine) 30 Mg Tab 30 Mg PO DAILY Lopressor (Metoprolol Tartrate) 50 Mg Tab 50 Mg PO Q12HR Crestor (Rosuvastatin Calcium) 40 Mg Tab 40 Mg PO DAILY Vitamin D-1000 (Cholecalciferol) 1,000 Unit Tab 2,000 Units PO DAILY Rosuvastatin (Rosuvastatin Calcium) 40 Mg Tab 40 Mg PO DAILY Raloxifene (Raloxifene HCl) 60 Mg Tab 60 Mg PO DAILY Glimepiride 2 Mg Tab 2 Mg PO DAILY Take with breakfast or first main meal Aspirin 81 Mg Chew 81 Mg CHEW DAILY Allergies: Coded Allergies: niacin (Unverified Allergy, Mild, HIVES, ITCHING, 05/14/17) adhesive (Unverified Allergy, Unknown, 05/14/17) alendronate sodium (Unverified Allergy, Unknown, 05/14/17) calcitonin (Unverified Allergy, Unknown, 05/14/17) Active Ordered Medications Current Medications Medications (Trade) Dose Ordered Sig/Ned Route Start Time Stop Time Status Last Admin (NS Flush) 2 ml UNSCH PRN IVF 05/14/17 02:00 Sodium Chloride 1,000 ml @ 100 mls/hr Q10H IV 05/14/17 03:30 05/14/17 04:25 Ceftriaxone Sodium 1000 mg/ Sodium Chloride 100 ml @ 200 mls/hr Q12H IV 05/14/17 16:00 (D50w (Vial) Inj) 50 ml UNSCH PRN IV PUSH 05/14/17 03:30 (Glucagon Inj) 1 mg UNSCH PRN OTHER 05/14/17 03:30 (NovoLOG SUPPLEMENTAL SCALE) 1 ACHS SLIDING SCALE SQ 05/14/17 08:00 (Aspirin Chew) 81 mg DAILY CHEW 05/14/17 09:00 (Vitamin D3) 2,000 units DAILY PO 05/14/17 09:00 (Cozaar) 50 mg DAILY PO 05/14/17 09:00 (Lopressor) 50 mg Q12HR PO 05/14/17 09:00 (Procardia Xl) 30 mg DAILY PO 05/14/17 09:00 (Evista) 60 mg DAILY PO 05/14/17 09:00 (Lipitor) 80 mg DAILY PO 05/14/17 09:00 (D50w (Vial) Inj) 50 ml UNSCH PRN IV PUSH 05/14/17 07:45 UNV (Glucagon Inj) 1 mg UNSCH PRN OTHER 05/14/17 07:45 UNV Family History Family history reviewed and includes CVA, COPD, cancer unknown type and ETOH abuse Social History Hx of tobacco use, quit in 1994, smoked less than 1/2ppd x 45 years Hx of heavy alcohol use Pt never Pt originally from [place], moved to around age 6, lived in [place] until 1971 when she moved to [place] Physical Exam Vital Signs Vital Signs Date Time Temp Pulse Resp B/P (MAP) Pulse Ox O2 Delivery O2 Flow Rate FiO2 05/14/17 07:24 99.5 96 22 133/63 (86) 95 05/14/17 05:12 98.1 94 18 115/52 (73) 92 05/14/17 04:49 05/14/17 04:25 95 20 139/58 (85) 96 Room Air 05/14/17 01:43 99.0 115 20 145/67 (93) 98 Physical Exam GENERAL: This is a well-nourished, well-developed patient, in no apparent distress. SKIN: No rashes, ecchymoses or lesions. Cool and dry. HEAD: Atraumatic. Normocephalic. No temporal or scalp tenderness. EYES: Pupils equal round and reactive. Extraocular motions intact. No scleral icterus. No injection or drainage. ENT: Nose without bleeding, purulent drainage or septal hematoma. Throat without erythema, tonsillar hypertrophy or exudate. Uvula midline. Airway patent. NECK: Trachea midline. No JVD or lymphadenopathy. Supple, nontender, no meningeal signs. CARDIOVASCULAR: Regular rate and rhythm without murmurs, gallops, or rubs. RESPIRATORY: Clear to auscultation. Breath sounds equal bilaterally. No wheezes , rales, or rhonchi. GASTROINTESTINAL: Abdomen soft, non-tender, nondistended. No hepato-splenomegaly , or palpable masses. No guarding. MUSCULOSKELETAL: Extremities without clubbing, cyanosis, or edema. No joint tenderness, effusion, or edema noted. No calf tenderness. Negative Homans sign bilaterally. NEUROLOGICAL: Awake and alert. LUE weaker then right chronic from previous CVA. Speech is clear Laboratory Laboratory Tests Test 05/14/17 02:00 05/14/17 02:10 05/14/17 03:20 White Blood Count 7.5 Red Blood Count 3.95 Hemoglobin 12.2 Hematocrit 37.5 Mean Corpuscular Volume 95.0 Mean Corpuscular Hemoglobin 31.0 Mean Corpuscular Hemoglobin Concent 32.6 Red Cell Distribution Width 17.2 Platelet Count 200 Mean Platelet Volume 8.4 Neutrophils (%) (Auto) 91.8 Lymphocytes (%) (Auto) 1.8 Monocytes (%) (Auto) 5.7 Eosinophils (%) (Auto) 0.5 Basophils (%) (Auto) 0.2 Neutrophils # (Auto) 6.9 Lymphocytes # (Auto) 0.1 Monocytes # (Auto) 0.4 Eosinophils # (Auto) 0.0 Basophils # (Auto) 0.0 CBC Comment DIFF FINAL Differential Comment Prothrombin Time 10.4 Prothromb Time International Ratio 0.9 Activated Partial Thromboplast Time 28.6 Blood Urea Nitrogen 25 Creatinine 2.96 Random Glucose 373 Calcium Level 9.1 Sodium Level 131 Potassium Level 4.0 Chloride Level 96 Carbon Dioxide Level 22.2 Anion Gap 13 Estimat Glomerular Filtration Rate 15 Lactic Acid Level 3.2 1.6 Total Creatine Kinase 35 Troponin I 0.03 Urine Color YELLOW Urine Turbidity HAZY Urine pH 5.5 Urine Specific [place] 1.009 Urine Protein 100 Urine Glucose (UA) 300 Urine Ketones 10 Urine Occult Blood SMALL Urine Nitrite NEG Urine Bilirubin NEG Urine Urobilinogen LESS THAN 2.0 Urine Leukocyte Esterase NEG Urine RBC 1 Urine WBC 6 Urine Amorphous Sediment RARE Urine Bacteria FEW Urine Mucus FEW Microscopic Urinalysis Comment CATH-CULTURE IND Date/Time Source Procedure Growth Status 05/14/17 03:20 Blood Peripheral Aerobic Blood Culture Pending Received 05/14/17 03:20 Blood Peripheral Anaerobic Blood Culture Pending Received 05/14/17 02:10 Urine Catheterized Urine Urine Culture Pending Received Result Diagram: 05/14/1719905/14/17 0200 Caprini VTE Risk Assessment Caprini VTE Risk Assessment: Mod/High Risk (score >= 2) Caprini Risk Assessment Model Point Value = 1 Point Value = 2 Point Value = 3 Point Value = 5 Age 41-60 Minor surgery BMI > 25 kg/m2 Swollen legs Varicose veins or History of unexplained or recurrent spontaneous Oral contraceptives or hormone replacement Sepsis (< 1 month) Serious lung disease, including pneumonia (< 1 month) Abnormal pulmonary function Acute myocardial infarction Congestive heart failure (< 1 month) History of inflammatory bowel disease Medical patient at bed rest Age 61-74 Arthroscopic surgery Major open surgery (> 45 min) Laparoscopic surgery (> 45 min) Malignancy Confined to bed (> 72 hours) Immobilizing plaster cast Central venous access Age >= 75 History of VTE Family history of VTE Factor V Leiden Prothrombin [id number] Lupus anticoagulant Anticardiolipin antibodies Elevated serum homocysteine Heparin-induced thrombocytopenia Other congenital or acquired thrombophilia Stroke (< 1 month) Elective arthroplasty Hip, pelvis, or leg fracture Acute spinal cord injury (< 1 month) Prophylaxis Regimen Total Risk Factor Score Risk Level Prophylaxis Regimen 0-1 Low Early ambulation 2 Moderate Order ONE of the following: *Sequential Compression Device (SCD) *Heparin 5000 units SQ BID 3-4 Higher Order ONE of the following medications: *Heparin 5000 units SQ TID *Enoxaparin/Lovenox 40 mg SQ daily (WT < 150 kg, CrCl > 30 mL/min) *Enoxaparin/Lovenox 30 mg SQ daily (WT < 150 kg, CrCl > 10-29 mL/min) *Enoxaparin/Lovenox 30 mg SQ BID (WT < 150 kg, CrCl > 30 mL/min) AND/OR *Sequential Compression Device (SCD) 5 or more Highest Order ONE of the following medications: *Heparin 5000 units SQ TID (Preferred with Epidurals) *Enoxaparin/Lovenox 40 mg SQ daily (WT < 150 kg, CrCl > 30 mL/min) *Enoxaparin/Lovenox 30 mg SQ daily (WT < 150 kg, CrCl > 10-29 mL/min) *Enoxaparin/Lovenox 30 mg SQ BID (WT < 150 kg, CrCl > 30 mL/min) AND *Sequential Compression Device (SCD) Assessment and Plan Problem List: (1) Hypoglycemia ICD Codes: E16.2 - Hypoglycemia, unspecified Status: Acute Plan: Hypoglycemia acute blood glucose 53 Upon arrival of EMS treated with D 25 patient's generalized weakness and slurred speech resolved blood glucose on arrival to ER was 373 will continue to monitor accu checks and over with SSI Monitored blood glucose through out the day will resume Glimepiride at reduced dose 1 mg PO daily tomorrow discussed with PCP Dr. Carey Plan to DC tomorrow is glucose remains stable Diabetes Status: Chronic - NovoLog SSI - Accu checks - recent HA1c 04/30/2017, 7.0 Generalized weakness likely secondary to hypoglycemia resolved after D 25 PT eval and treat UTI UA reviewed and reveals protein, glucose, ketones, urine bacteria and Mucus patient started on Rocephin daily await culture results NONA on CKD (chronic kidney disease) stage 4, GFR 15-29 ml/min Chronic baseline which has been around 1.8 to 1.9 - Pt with stage 4 CKD, follows with Dr. Miller. - Pts renal function is higher than baseline - Gentle IVF x 1 day then DC - recheck BMP in AM Hyperlipidemia E78.5 - Hyperlipidemia, unspecified Chronic, continue home medications DVT prophylaxis with SCDs (2) Generalized weakness ICD Codes: R53.1 - Weakness Status: Acute (3) UTI (urinary tract infection) ICD Codes: N39.0 - Urinary tract infection, site not specified Status: Acute (4) Acute on chronic kidney failure ICD Codes: N17.9 - Acute kidney failure, unspecified; N18.9 - Chronic kidney disease, unspecified (5) Diabetes ICD Codes: E11.9 - Type 2 diabetes mellitus without complications Status: Chronic (6) HTN (hypertension) ICD Codes: I10 - Essential (primary) hypertension Status: Chronic (7) Hyperlipidemia ICD Codes: E78.5 - Hyperlipidemia, unspecified Status: Chronic Negin Rowe May 14, 2017 07:58
[2017-05-14] MEDS ORDERED: INSULIN ASPART SUPPLEMENTAL SCALE SQ SCH (08:00)
[2017-05-14] MEDS ORDERED: GLIM2TAB PO (08:52)
[2017-05-14] MEDS ORDERED: NON-FORMULARY DRUG (Rosuvastatin 40 MG) PO SCH (09:00)
[2017-05-14] MEDS: CHOLECALCIFEROL (VIT D3) 1000 UNIT TAB PO SCH (09:31)
[2017-05-14] MEDS: LOSARTAN 50 MG TAB PO SCH (09:31)
[2017-05-14] MEDS: ATORVASTATIN 80 MG TAB PO SCH (09:31)
[2017-05-14] MEDS: NIFEdipine 30 MG SUSTAINED RELEASE TAB PO SCH (09:32)
[2017-05-14] MEDS: METOPROLOL TARTRATE 50 MG TAB PO SCH ×2 (09:32→20:46)
[2017-05-14] MEDS: RALOXIFENE HCL 60 MG TAB PO SCH (09:32)
[2017-05-14] MEDS: ASPIRIN 81 MG CHEW TAB CHEW SCH (09:33)
[2017-05-14] MEDS: cefTRIAXone INJ 1,000 MG in SODIUM CHLORIDE 0.9% INJ 100 ML IV SCH (17:09)
[2017-05-14] MEDS: INSULIN ASPART SUPPLEMENTAL SCALE SQ SCH (21:00)
[2017-05-15] VITALS (9 sets, daily range): BP systolic 133–159; BP diastolic 65–84; PULSE 82–120; RESP 16–24; TEMP 97.6–98.4; O2SAT 93–95
[2017-05-15] MEDS: cefTRIAXone INJ 1,000 MG in SODIUM CHLORIDE 0.9% INJ 100 ML IV SCH (04:21)
[2017-05-15 04:49] LABS: BICARBONATE 25.5 MEQ/L (21.0-32.0); POTASSIUM 3.4 MEQ/L (3.5-5.1)
[2017-05-15] MEDS ORDERED: GLIMEPIRIDE 1 MG TAB PO SCH (08:00)
[2017-05-15] MEDS: INSULIN ASPART SUPPLEMENTAL SCALE SQ SCH ×4 (08:00→21:42)
[2017-05-15] MEDS ORDERED: POTASSIUM CHLORIDE 20 MEQ CONTROLLED RELEASE TAB PO ONE (08:00)
[2017-05-15] MEDS: LOSARTAN 50 MG TAB PO SCH (08:33)
[2017-05-15] MEDS: ATORVASTATIN 80 MG TAB PO SCH (08:33)
[2017-05-15] MEDS: ASPIRIN 81 MG CHEW TAB CHEW SCH (08:34)
[2017-05-15] MEDS: CHOLECALCIFEROL (VIT D3) 1000 UNIT TAB PO SCH (08:34)
[2017-05-15] MEDS: NIFEdipine 30 MG SUSTAINED RELEASE TAB PO SCH (08:34)
[2017-05-15] MEDS: METOPROLOL TARTRATE 50 MG TAB PO SCH ×2 (08:35→21:28)
[2017-05-15] MEDS: RALOXIFENE HCL 60 MG TAB PO SCH (08:35)
--- NOTE | 2017-05-15 08:53 | HHI.PR ---
Subjective Remarks Patient resting in bed easy to awake with voice blood glucose 0328 was 74 and at 0430 was 59, patient asymptomatic at those times patient offers no complaints at this time Objective Vitals Vital Signs Date Time Temp Pulse Resp B/P (MAP) Pulse Ox O2 Delivery O2 Flow Rate FiO2 05/15/17 08:37 120 18 159/84 (109) 95 05/15/17 04:31 106 05/15/17 04:16 98.4 93 18 151/66 (94) 93 05/14/17 23:56 98.3 91 19 143/65 (91) 94 05/14/17 19:30 98.7 107 18 154/68 (96) 95 05/14/17 16:26 98.1 92 20 154/68 (96) 94 05/14/17 12:46 88 05/14/17 11:43 98.5 80 22 112/57 (75) 96 05/14/17 09:01 102 Result Diagram: 05/14/17 0200 05/15/17 0328 Other Results Laboratory Tests Test 05/14/17 02:00 05/14/17 02:10 05/14/17 03:20 05/15/17 03:28 White Blood Count 7.5 TH/MM3 Red Blood Count 3.95 MIL/MM3 Hemoglobin 12.2 GM/DL Hematocrit 37.5 % Mean Corpuscular Volume 95.0 FL Mean Corpuscular Hemoglobin 31.0 PG Mean Corpuscular Hemoglobin Concent 32.6 % Red Cell Distribution Width 17.2 % Platelet Count 200 TH/MM3 Mean Platelet Volume 8.4 FL Neutrophils (%) (Auto) 91.8 % Lymphocytes (%) (Auto) 1.8 % Monocytes (%) (Auto) 5.7 % Eosinophils (%) (Auto) 0.5 % Basophils (%) (Auto) 0.2 % Neutrophils # (Auto) 6.9 TH/MM3 Lymphocytes # (Auto) 0.1 TH/MM3 Monocytes # (Auto) 0.4 TH/MM3 Eosinophils # (Auto) 0.0 TH/MM3 Basophils # (Auto) 0.0 TH/MM3 CBC Comment DIFF FINAL Differential Comment Prothrombin Time 10.4 SEC Prothromb Time International Ratio 0.9 RATIO Activated Partial Thromboplast Time 28.6 SEC Blood Urea Nitrogen 25 MG/DL 17 MG/DL Creatinine 2.96 MG/DL 2.18 MG/DL Random Glucose 373 MG/DL 74 MG/DL Calcium Level 9.1 MG/DL 9.1 MG/DL Sodium Level 131 MEQ/L 142 MEQ/L Potassium Level 4.0 MEQ/L 3.4 MEQ/L Chloride Level 96 MEQ/L 109 MEQ/L Carbon Dioxide Level 22.2 MEQ/L 25.5 MEQ/L Anion Gap 13 MEQ/L 8 MEQ/L Estimat Glomerular Filtration Rate 15 ML/MIN 22 ML/MIN Lactic Acid Level 3.2 mmol/L 1.6 mmol/L Total Creatine Kinase 35 U/L Troponin I 0.03 NG/ML Urine Color YELLOW Urine Turbidity HAZY Urine pH 5.5 Urine Specific [place] 1.009 Urine Protein 100 mg/dL Urine Glucose (UA) 300 mg/dL Urine Ketones 10 mg/dL Urine Occult Blood SMALL Urine Nitrite NEG Urine Bilirubin NEG Urine Urobilinogen LESS THAN 2.0 MG/DL Urine Leukocyte Esterase NEG Urine RBC 1 /hpf Urine WBC 6 /hpf Urine Amorphous Sediment RARE Urine Bacteria FEW /hpf Urine Mucus FEW /lpf Microscopic Urinalysis Comment CATH-CULTURE IND Imaging Last Impressions Head CT 05/14/17153 Signed Impressions: Service Date/Time: Sunday, May 14, 2017 02:29 - CONCLUSION: 1. No bleed or evidence of acute infarct. 2. 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 Steve Cotton MD Chest X-Ray 05/14/17153 Signed Impressions: Service Date/Time: Sunday, May 14, 2017 02:07 - CONCLUSION: No evidence of acute cardiopulmonary disease. Steve Cotton MD Objective Remarks GENERAL: This is a thin, well-developed patient, in no apparent distress. CARDIOVASCULAR: Regular rate and rhythm RESPIRATORY: Clear to auscultation. Breath sounds equal bilaterally. GASTROINTESTINAL: Abdomen soft, non-tender, nondistended. No hepato-splenomegaly , or palpable masses. No guarding. MUSCULOSKELETAL: Extremities without clubbing, cyanosis, or edema. No joint tenderness, effusion, or edema noted. No calf tenderness. Negative Homans sign bilaterally. NEUROLOGICAL: Awake and alert. LUE weaker than right- chronic from previous CVA. Normal speech. Procedures none A/P Problem List: (1) Hypoglycemia ICD Codes: E16.2 - Hypoglycemia, unspecified Status: Acute Plan: Hypoglycemia acute blood glucose 53 Upon arrival of EMS treated with D 25 patient's generalized weakness and slurred speech resolved blood glucose on arrival to ER was 373 will continue to monitor accu checks and cover with SSI Monitored blood glucose through out the day stable 05/15 at 0328 glucose 74 and 0430 glucose 59, patient asymptomatic discussed with PCP Dr. Carey 05/14 worsening renal function likely contributing to hypoglycemia will add snack before bed and continue to monitor blood sugar through the night plan to DC tomorrow if blood glucose stable through the night Diabetes Status: Chronic - NovoLog SSI - Accu checks - recent HA1c 04/30/2017, 7.0 Generalized weakness likely secondary to hypoglycemia resolved after D 25 PT eval and treat Possible UTI UA reviewed and reveals protein, glucose, ketones, urine bacteria and Mucus patient started on Rocephin daily urine culture results reveal < 10,000 mixed gram positive everett Rocephin DC'd NONA on CKD (chronic kidney disease) stage 4, GFR 15-29 ml/min Chronic baseline which has been around 1.8 to 1.9 - Pt with stage 4 CKD, follows with Dr. Miller. - Pts renal function is higher than baseline - Gentle IVF x 1 day then DC - recheck BMP reveals BUN 17, creatinine 2.18 and GFR 22 Hypokalemia potassium 3.4 replaced with 20 meq KCL Hyperlipidemia Chronic, continue home medications DVT prophylaxis with SCDs (2) Generalized weakness ICD Codes: R53.1 - Weakness Status: Acute (3) UTI (urinary tract infection) ICD Codes: N39.0 - Urinary tract infection, site not specified Status: Acute (4) Acute on chronic kidney failure ICD Codes: N17.9 - Acute kidney failure, unspecified; N18.9 - Chronic kidney disease, unspecified (5) Diabetes ICD Codes: E11.9 - Type 2 diabetes mellitus without complications Status: Chronic (6) HTN (hypertension) ICD Codes: I10 - Essential (primary) hypertension Status: Chronic (7) Hyperlipidemia ICD Codes: E78.5 - Hyperlipidemia, unspecified Status: Chronic Assessment and Plan Patient examined. Assessment and plan formulated with Negin Rowe PA-C. I agree with the above. nighttime hypoglycemia. nona/ckd improved holding oha. nighttime snack and observe again here. Pt lives alone. Negin Rowe May 15, 2017 08:53 Nicholas Davis MD May 15, 2017 15:33
[2017-05-16] VITALS (9 sets, daily range): BP systolic 133–163; BP diastolic 63–83; PULSE 90–128; RESP 16–18; TEMP 97.9–99.6; O2SAT 94–96
[2017-05-16] MEDS: INSULIN ASPART SUPPLEMENTAL SCALE SQ SCH ×4 (08:00→21:00)
[2017-05-16] MEDS: CHOLECALCIFEROL (VIT D3) 1000 UNIT TAB PO SCH (08:38)
[2017-05-16] MEDS: NIFEdipine 30 MG SUSTAINED RELEASE TAB PO SCH (08:38)
[2017-05-16] MEDS: METOPROLOL TARTRATE 50 MG TAB PO SCH (08:38)
[2017-05-16] MEDS: ATORVASTATIN 80 MG TAB PO SCH (08:39)
[2017-05-16] MEDS: RALOXIFENE HCL 60 MG TAB PO SCH (08:39)
[2017-05-16] MEDS: ASPIRIN 81 MG CHEW TAB CHEW SCH (08:39)
[2017-05-16] MEDS: LOSARTAN 50 MG TAB PO SCH (08:39)
--- NOTE | 2017-05-16 08:47 | HHI.PR ---
Subjective Remarks Patient reports feeling well offers no specific complaints Wants to go home Objective Vitals Vital Signs Date Time Temp Pulse Resp B/P (MAP) Pulse Ox O2 Delivery O2 Flow Rate FiO2 05/16/17 07:53 98.5 112 18 138/65 (89) 96 05/16/17 04:00 96 05/16/17 03:38 97.9 104 16 142/63 (89) 94 05/16/17 01:57 90 05/15/17 23:36 98.3 89 16 144/71 (95) 95 05/15/17 19:18 98.2 118 16 142/65 (90) 94 05/15/17 16:12 97.6 108 20 155/71 (99) 94 05/15/17 15:47 82 05/15/17 14:42 82 05/15/17 11:23 97.6 85 24 133/68 (89) 95 Result Diagram: 05/14/17 0200 05/15/17 0328 Other Results Laboratory Tests Test 05/14/17 02:00 05/14/17 02:10 05/14/17 03:20 05/15/17 03:28 White Blood Count 7.5 TH/MM3 Red Blood Count 3.95 MIL/MM3 Hemoglobin 12.2 GM/DL Hematocrit 37.5 % Mean Corpuscular Volume 95.0 FL Mean Corpuscular Hemoglobin 31.0 PG Mean Corpuscular Hemoglobin Concent 32.6 % Red Cell Distribution Width 17.2 % Platelet Count 200 TH/MM3 Mean Platelet Volume 8.4 FL Neutrophils (%) (Auto) 91.8 % Lymphocytes (%) (Auto) 1.8 % Monocytes (%) (Auto) 5.7 % Eosinophils (%) (Auto) 0.5 % Basophils (%) (Auto) 0.2 % Neutrophils # (Auto) 6.9 TH/MM3 Lymphocytes # (Auto) 0.1 TH/MM3 Monocytes # (Auto) 0.4 TH/MM3 Eosinophils # (Auto) 0.0 TH/MM3 Basophils # (Auto) 0.0 TH/MM3 CBC Comment DIFF FINAL Differential Comment Prothrombin Time 10.4 SEC Prothromb Time International Ratio 0.9 RATIO Activated Partial Thromboplast Time 28.6 SEC Blood Urea Nitrogen 25 MG/DL 17 MG/DL Creatinine 2.96 MG/DL 2.18 MG/DL Random Glucose 373 MG/DL 74 MG/DL Calcium Level 9.1 MG/DL 9.1 MG/DL Sodium Level 131 MEQ/L 142 MEQ/L Potassium Level 4.0 MEQ/L 3.4 MEQ/L Chloride Level 96 MEQ/L 109 MEQ/L Carbon Dioxide Level 22.2 MEQ/L 25.5 MEQ/L Anion Gap 13 MEQ/L 8 MEQ/L Estimat Glomerular Filtration Rate 15 ML/MIN 22 ML/MIN Lactic Acid Level 3.2 mmol/L 1.6 mmol/L Total Creatine Kinase 35 U/L Troponin I 0.03 NG/ML Urine Color YELLOW Urine Turbidity HAZY Urine pH 5.5 Urine Specific [place] 1.009 Urine Protein 100 mg/dL Urine Glucose (UA) 300 mg/dL Urine Ketones 10 mg/dL Urine Occult Blood SMALL Urine Nitrite NEG Urine Bilirubin NEG Urine Urobilinogen LESS THAN 2.0 MG/DL Urine Leukocyte Esterase NEG Urine RBC 1 /hpf Urine WBC 6 /hpf Urine Amorphous Sediment RARE Urine Bacteria FEW /hpf Urine Mucus FEW /lpf Microscopic Urinalysis Comment CATH-CULTURE IND Imaging Last Impressions Head CT 05/14/17153 Signed Impressions: Service Date/Time: Sunday, May 14, 2017 02:29 - CONCLUSION: 1. No bleed or evidence of acute infarct. 2. 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 Steve Cotton MD Chest X-Ray 05/14/17153 Signed Impressions: Service Date/Time: Sunday, May 14, 2017 02:07 - CONCLUSION: No evidence of acute cardiopulmonary disease. Steve Cotton MD Objective Remarks GENERAL: This is a thin, well-developed patient, in no apparent distress. CARDIOVASCULAR: Regular rate and rhythm RESPIRATORY: Clear to auscultation. Breath sounds equal bilaterally. GASTROINTESTINAL: Abdomen soft, non-tender, nondistended. No hepato-splenomegaly , or palpable masses. No guarding. MUSCULOSKELETAL: Extremities without clubbing, cyanosis, or edema. No joint tenderness, effusion, or edema noted. No calf tenderness. Negative Homans sign bilaterally. NEUROLOGICAL: Awake and alert. LUE weaker than right- chronic from previous CVA. Normal speech. Procedures none A/P Problem List: (1) Hypoglycemia ICD Codes: E16.2 - Hypoglycemia, unspecified Status: Acute Plan: Hypoglycemia acute blood glucose 53 Upon arrival of EMS treated with D 25 patient's generalized weakness and slurred speech resolved blood glucose on arrival to ER was 373 will continue to monitor accu checks and cover with SSI Monitored blood glucose through out the day stable 05/15 at 0328 glucose 74 and 0430 glucose 59, patient asymptomatic discussed with PCP Dr. Carey 05/14 worsening renal function likely contributing to hypoglycemia continue snack before bed glucose last night elevated 202, 133 this AM will restart glimepiride at half of the home dose, glimepiride 1 mg PO daily 1600 (05/16) patient's glucose dropped to 52- will DC glimepiride Patient refusing to eat the food here at the hospital will start D5W 1/2 NS with 20 KCL continue to monitor blood glucose Tachycardia 05/16/17 Patient's heart rate increasing now 120's EKG reviewed and reveals ST 124bpm patient nauseous and vomiting currently tachycardia likely reactive supportive care currently on metoprolol 50 mg PO BID patient had recent admission for tachycardia initially placed on Cardizem drip which was discontinued. On that admission patient's metoprolol was increased to 50 mg BID from 25 mg BID. Diabetes Status: Chronic - NovoLog SSI - Accu checks - recent HA1c 04/30/2017, 7.0 - discussed glucose monitoring at home. Patient reports she has a glucometer at home but does not use it. Patient offered a new glucometer and refused - will order lancets and strips - will request [facility]HC at time of DC Generalized weakness likely secondary to hypoglycemia resolved after D 25 PT eval and treat recommending home with no PT Possible UTI UA reviewed and reveals protein, glucose, ketones, urine bacteria and Mucus patient started on Rocephin daily urine culture results reveal < 10,000 mixed gram positive everett Rocephin DC'd NONA on CKD (chronic kidney disease) stage 4, GFR 15-29 ml/min Chronic baseline which has been around 1.8 to 1.9 - Pt with stage 4 CKD, follows with Dr. Miller. - Pts renal function is higher than baseline - Gentle IVF x 1 day then DC - recheck BMP reveals BUN 17, creatinine 2.18 and GFR 22 Hypokalemia potassium 3.4 (05/15) replaced with 20 meq KCL Hyperlipidemia Chronic, continue home medications DVT prophylaxis with SCDs (2) Generalized weakness ICD Codes: R53.1 - Weakness Status: Acute (3) UTI (urinary tract infection) ICD Codes: N39.0 - Urinary tract infection, site not specified Status: Acute (4) Acute on chronic kidney failure ICD Codes: N17.9 - Acute kidney failure, unspecified; N18.9 - Chronic kidney disease, unspecified (5) Diabetes ICD Codes: E11.9 - Type 2 diabetes mellitus without complications Status: Chronic (6) HTN (hypertension) ICD Codes: I10 - Essential (primary) hypertension Status: Chronic (7) Hyperlipidemia ICD Codes: E78.5 - Hyperlipidemia, unspecified Status: Chronic Assessment and Plan Patient examined. Assessment and plan formulated with Negin Rowe PA-C. I agree with the above. nighttime hypoglycemia. nona/ckd improved holding oha. nighttime snack and observe again here. Pt lives alone. Negin Rowe May 16, 2017 08:47
--- NOTE | 2017-05-16 08:48 | EKG ---
Date Performed: 05/14/2017 Time Performed: 01:49:15 PTAGE: 76 years EKG: SINUS TACHYCARDIA MINIMAL ST DEPRESSION ABNORMAL RHYTHM ECG PREVIOUS TRACING : 04/12/2017 01.02 DOCTOR: Alexei Almazan Interpretating Date/Time 05/16/2017 08:46:58
[2017-05-16] MEDS ORDERED: GLIM1 PO (08:49)
--- NOTE | 2017-05-16 08:49 | HHI.DCPOC ---
Discharge Care Plan Diagnosis: (1) Diabetes (2) Hypoglycemia Goals to Promote Your Health * To prevent worsening of your condition and complications * To maintain your health at the optimal level Directions to Meet Your Goals Take your medications as prescribed Follow your dietary instruction Follow activity as directed Keep your appointments as scheduled Take your immunizations and boosters as scheduled If your symptoms worsen call your PCP, if no PCP go to Urgent Care Center or Emergency Room Smoking is Dangerous to Your Health. Avoid second hand smoke Call the 24-hour hour crisis hotline for domestic abuse at Negin Rowe May 16, 2017 08:49
--- NOTE | 2017-05-16 08:50 | HHI.DS ---
Discharge Summary Admission Date May 14, 2017 at 03:25 Discharge Date: May 17, 2017 Admitting Diagnosis generalized weakness; DM w/hypoglycemia;uti (1) Hypoglycemia ICD Codes: E16.2 - Hypoglycemia, unspecified Status: Acute (2) Generalized weakness ICD Codes: R53.1 - Weakness Status: Acute (3) UTI (urinary tract infection) ICD Codes: N39.0 - Urinary tract infection, site not specified Status: Acute (4) Acute on chronic kidney failure ICD Codes: N17.9 - Acute kidney failure, unspecified; N18.9 - Chronic kidney disease, unspecified (5) Diabetes ICD Codes: E11.9 - Type 2 diabetes mellitus without complications Status: Chronic (6) HTN (hypertension) ICD Codes: I10 - Essential (primary) hypertension Status: Chronic (7) Hyperlipidemia ICD Codes: E78.5 - Hyperlipidemia, unspecified Status: Chronic Consultants none Procedures none Brief History Ms. Gary is a pleasant 76 y/o WF with HTN, hyperlipidemia, diabetes and CKD stage 4, who presented to the ED at [facility] on 05/13/17 with complaints of awakening around 12:30 AM with generalized weakness and slurred speech. Patient was able to call 911. Upon EMS arrival patient's blood glucose was noted to be 53, she was then given D25 and symptoms resolved. Patient now feels that she is at her baseline. Patient does have history of CVA with residual LUE and slight LLE weakness. Patient that she has not been eating much for the past few days. Patient states, "I just don't have an appetite." Patient ate oatmeal last night for dinner. Patient also reports that she continued taking her regular diabetic medication glimepiride 2 mg tables 1 tablets daily. Patient denies recent fevers, chills, N/V/D/C, shortness of breath of chest pain. Patient was recently treated in the hospital on 04/12/17 for SOB, cough and tachycardic with HR in the 130-140s. Which appears to have resolved with steroid taper which was completed and increase in Metoprolol to 50 mg BID. Patient states, she may need to move to SNF or [facility]. Patient has no family here , her family is in [place]. Patient also has limited support from her neighbor as she is also elderly. CBC/BMP: 05/14/17 0200 05/15/17 0328 Significant Findings Laboratory Tests Test 05/14/17 02:00 05/14/17 02:10 05/14/17 03:20 05/15/17 03:28 Red Blood Count 3.95 MIL/MM3 (4.00-5.30) Neutrophils (%) (Auto) 91.8 % (16.0-70.0) Lymphocytes (%) (Auto) 1.8 % (9.0-44.0) Lymphocytes # (Auto) 0.1 TH/MM3 (1.0-4.8) Blood Urea Nitrogen 25 MG/DL (7-18) Creatinine 2.96 MG/DL (0.50-1.00) 2.18 MG/DL (0.50-1.00) Random Glucose 373 MG/DL (74-106) Sodium Level 131 MEQ/L (136-145) Chloride Level 96 MEQ/L (98-107) 109 MEQ/L (98-107) Estimat Glomerular Filtration Rate 15 ML/MIN (>89) 22 ML/MIN (>89) Lactic Acid Level 3.2 mmol/L (0.4-2.0) Urine Turbidity HAZY (CLEAR) Urine Protein 100 mg/dL (NEG-TRACE) Urine Glucose (UA) 300 mg/dL (NEG) Urine Ketones 10 mg/dL (NEG) Urine Occult Blood SMALL (NEG) Urine WBC 6 /hpf (0-5) Urine Bacteria FEW /hpf (NONE) Urine Mucus FEW /lpf (OCC) Potassium Level 3.4 MEQ/L (3.5-5.1) Imaging Last Impressions Head CT 05/14/17153 Signed Impressions: Service Date/Time: Sunday, May 14, 2017 02:29 - CONCLUSION: 1. No bleed or evidence of acute infarct. 2. 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 Steve Cotton MD Chest X-Ray 05/14/17153 Signed Impressions: Service Date/Time: Sunday, May 14, 2017 02:07 - CONCLUSION: No evidence of acute cardiopulmonary disease. Steve Cotton MD PE at Discharge GENERAL: This is a thin, well-developed patient, in no apparent distress. CARDIOVASCULAR: Regular rate and rhythm RESPIRATORY: Clear to auscultation. Breath sounds equal bilaterally. GASTROINTESTINAL: Abdomen soft, non-tender, nondistended. No hepato-splenomegaly , or palpable masses. No guarding. MUSCULOSKELETAL: Extremities without clubbing, cyanosis, or edema. No joint tenderness, effusion, or edema noted. No calf tenderness. Negative Homans sign bilaterally. NEUROLOGICAL: Awake and alert. LUE weaker than right- chronic from previous CVA. Normal speech. Hospital Course Hypoglycemia acute blood glucose 53 Upon arrival of EMS treated with D 25 patient's generalized weakness and slurred speech resolved blood glucose on arrival to ER was 373 will continue to monitor accu checks and cover with SSI Monitored blood glucose through out the day stable 05/15 at 0328 glucose 74 and 0430 glucose 59, patient asymptomatic discussed with PCP Dr. Carey 05/14 worsening renal function likely contributing to hypoglycemia continue snack before bed glucose last night elevated 202, 133 this AM will restart glimepiride at half of the home dose, glimepiride 1 mg PO daily- patient became hypoglycemic and required D5 INF yesterday will DC IVF and monitor glucose Plan to DC patient home if glucose remains stable Tachycardia 05/16/17 Patient's heart rate increasing now 120's EKG reviewed and reveals ST 124bpm patient nauseous and vomiting currently tachycardia likely reactive supportive care currently on metoprolol 50 mg PO BID patient had recent admission for tachycardia initially placed on Cardizem drip which was discontinued. On that admission patient's metoprolol was increased to 50 mg BID from 25 mg BID. Patient's HR improved and N/V resolved Diabetes Status: Chronic - NovoLog SSI - Accu checks - recent HA1c 04/30/2017, 7.0 - discussed glucose monitoring at home. Patient reports she has a glucometer at home but does not use it. Patient offered a new glucometer and refused - will order lancets and strips - will request C at time of DC Generalized weakness likely secondary to hypoglycemia resolved after D 25 PT eval and treat recommending home with no PT Possible UTI UA reviewed and reveals protein, glucose, ketones, urine bacteria and Mucus patient started on Rocephin daily urine culture results reveal < 10,000 mixed gram positive everett Rocephin DC'd NONA on CKD (chronic kidney disease) stage 4, GFR 15-29 ml/min Chronic baseline which has been around 1.8 to 1.9 - Pt with stage 4 CKD, follows with Dr. Paul. - Pts renal function is higher than baseline - Gentle IVF x 1 day then DC - recheck BMP reveals BUN 17, creatinine 2.18 and GFR 22 Hypokalemia potassium 3.4 (05/15) replaced with 20 meq KCL Hyperlipidemia Chronic, continue home medications DVT prophylaxis with SCDs Pt Condition on Discharge: Stable Discharge Disposition: Discharge Home Discharge Instructions DIET: Follow Instructions for: Diabetic Diet Activities you can perform: Regular-No Restrictions Follow up Referrals: PCP Follow-up - 3-[address] Mayen PCP Follow-up New Medications: Blood Glucose Test Strips (Blood Glucose Test Strips) Strips Strip EA .ROUTE DIRECTED for Blood Sugar Management, #100 0 Refills Lancets (Lancets) 1 Mis Mis EA .ROUTE DIRECTED for Blood Sugar Management, #100 0 Refills Continued Medications: Aspirin (Aspirin) 81 Mg Chew 81 MG CHEW DAILY, TAB 0 Refills Cholecalciferol (Vitamin D-1000) 1,000 Unit Tab 2000 UNITS PO DAILY for Nutritional Supplement, #1 BOTTLE 0 Refills Losartan (Cozaar) 50 Mg Tab 50 MG PO DAILY for Blood Pressure Management, #30 TAB 0 Refills Metoprolol Tartrate (Lopressor) 50 Mg Tab 50 MG PO Q12HR for blood pressure, #60 TAB 0 Refills Nifedipine ER 24 HR (Nifedipine ER 24 HR) 30 Mg Tab 30 MG PO DAILY for blood pressure, #30 TAB 0 Refills Raloxifene (Raloxifene) 60 Mg Tab 60 MG PO DAILY for Chemotherapy Management, #30 TAB 0 Refills Rosuvastatin (Crestor) 40 Mg Tab 40 MG PO DAILY for Cholesterol Management, #30 TAB 0 Refills Discontinued Medications: Glimepiride (Glimepiride) 2 Mg Tab 2 MG PO DAILY for Blood Sugar Management, #30 TAB 0 Refills Take with breakfast or first main meal Rosuvastatin (Rosuvastatin) 40 Mg Tab 40 MG PO DAILY for Cholesterol Management, #30 TAB 0 Refills Negin Rowe May 16, 2017 08:50
--- NOTE | 2017-05-16 14:25 | HHI.FF ---
Face to Face Verification Diagnosis: (1) Diabetes (2) Hypoglycemia Home Health Nursing Order: Medical education Signs/symptoms of disease process Diabetic education Nursing assessment with vital signs Instructions: Patient does not check glucose at home. Medication compliance is in question. Please evaluate, instruct and assist. Manager Athletics Order: To Evaluate: Living conditions/environment, Support services Order: To Provide: Long range planning, Community services I have seen patient Mandy Gallo on 05/16/17. My clinical findings support the need for the requested home health care services because: Medication compliance is in question Med compliance is questionable I certify that my clinical findings support that this patient is homebound because: safety concern Impaired cognitive ability/safety Negin Rowe May 16, 2017 14:25
[2017-05-16] MEDS ORDERED: LANCETS1 MI1 (14:29)
[2017-05-16] MEDS ORDERED: BLOOD GLUCOSE T1 TES (14:29)
[2017-05-16] MEDS ORDERED: DEXT 5%-NACL 0.45% 1000 ML INJ 1,000 ML IV SCH (16:30)
[2017-05-16] MEDS ORDERED: PANTOPRAZOLE SODIUM 40 MG VIAL IV PUSH ONE (16:45)
[2017-05-16] MEDS ORDERED: D5-1/2 NS + KCL 20 MEQ INJ 1,000 ML IV SCH ×2 (16:45→19:45)
[2017-05-16] MEDS ORDERED: ALUMINUM/MAGNESIUM/SIMETH 30 ML CUP PO ONE (16:45)
[2017-05-16] MEDS ORDERED: ONDANSETRON HCL 4 MG/2 ML VIAL IV PUSH PRN (17:00)
[2017-05-17 00:12] VITALS: BP 149/73; PULSE 116; RESP 18; TEMP 98.4; O2SAT 95
[2017-05-17 05:18] VITALS: BP 170/93; PULSE 99; RESP 18; TEMP 98.7; O2SAT 94
[2017-05-17 08:00] VITALS: BP 147/65; PULSE 106; RESP 18; TEMP 98.5; O2SAT 94
[2017-05-17] MEDS: INSULIN ASPART SUPPLEMENTAL SCALE SQ SCH ×3 (08:00→16:44)
[2017-05-17 08:01] VITALS: PULSE 94
--- NOTE | 2017-05-17 08:53 | HHI.PR ---
Subjective Remarks Patient reports feeling well today no longer having N/V patient feels as though the N/V was secondary to nerves/anxiety yesterday asking to go home today Objective Vitals Vital Signs Date Time Temp Pulse Resp B/P (MAP) Pulse Ox O2 Delivery O2 Flow Rate FiO2 05/17/17 05:18 98.7 99 18 170/93 (118) 94 05/17/17 00:12 98.4 116 18 149/73 (98) 95 05/16/17 19:22 98.9 110 18 163/83 (109) 96 05/16/17 15:40 99.6 128 16 133/64 (87) 95 05/16/17 15:15 124 05/16/17 11:55 98.1 120 18 148/69 (95) 94 05/16/17 08:58 115 05/17/17 05/17/17 05/18/17 15:00 23:00 07:00 Intake Total 55 ml Balance 55 ml Intake IV Total 55 ml Result Diagram: 05/14/17 0200 05/15/17 0328 Other Results Laboratory Tests Test 05/15/17 03:28 Blood Urea Nitrogen 17 MG/DL Creatinine 2.18 MG/DL Random Glucose 74 MG/DL Calcium Level 9.1 MG/DL Sodium Level 142 MEQ/L Potassium Level 3.4 MEQ/L Chloride Level 109 MEQ/L Carbon Dioxide Level 25.5 MEQ/L Anion Gap 8 MEQ/L Estimat Glomerular Filtration Rate 22 ML/MIN Imaging Last Impressions Head CT 05/14/17153 Signed Impressions: Service Date/Time: Sunday, May 14, 2017 02:29 - CONCLUSION: 1. No bleed or evidence of acute infarct. 2. 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 Steve Cotton MD Chest X-Ray 05/14/17153 Signed Impressions: Service Date/Time: Sunday, May 14, 2017 02:07 - CONCLUSION: No evidence of acute cardiopulmonary disease. Steve Cotton MD Objective Remarks GENERAL: This is a thin, well-developed patient, in no apparent distress. CARDIOVASCULAR: Regular rate and rhythm RESPIRATORY: Clear to auscultation. Breath sounds equal bilaterally. GASTROINTESTINAL: Abdomen soft, non-tender, nondistended. No hepato-splenomegaly , or palpable masses. No guarding. MUSCULOSKELETAL: Extremities without clubbing, cyanosis, or edema. No joint tenderness, effusion, or edema noted. No calf tenderness. Negative Homans sign bilaterally. NEUROLOGICAL: Awake and alert. LUE weaker than right- chronic from previous CVA. Normal speech. Procedures none A/P Problem List: (1) Hypoglycemia ICD Codes: E16.2 - Hypoglycemia, unspecified Status: Acute Plan: Hypoglycemia acute blood glucose 53 Upon arrival of EMS treated with D 25 patient's generalized weakness and slurred speech resolved blood glucose on arrival to ER was 373 will continue to monitor accu checks and cover with SSI Monitored blood glucose through out the day stable 05/15 at 0328 glucose 74 and 0430 glucose 59, patient asymptomatic discussed with PCP Dr. Carey 05/14 worsening renal function likely contributing to hypoglycemia continue snack before bed glucose last night elevated 202, 133 this AM will restart glimepiride at half of the home dose, glimepiride 1 mg PO daily- patient became hypoglycemic and required D5 INF yesterday will DC INF and monitor glucose Plan to DC patient home if glucose remains stable Tachycardia 05/16/17 Patient's heart rate increasing now 120's EKG reviewed and reveals ST 124bpm patient nauseous and vomiting currently tachycardia likely reactive supportive care currently on metoprolol 50 mg PO BID patient had recent admission for tachycardia initially placed on Cardizem drip which was discontinued. On that admission patient's metoprolol was increased to 50 mg BID from 25 mg BID. Patient's HR improved and N/V resolved Diabetes Status: Chronic - NovoLog SSI - Accu checks - recent HA1c 04/30/2017, 7.0 - discussed glucose monitoring at home. Patient reports she has a glucometer at home but does not use it. Patient offered a new glucometer and refused - will order lancets and strips - will request C at time of DC Generalized weakness likely secondary to hypoglycemia resolved after D 25 PT eval and treat recommending home with no PT Possible UTI UA reviewed and reveals protein, glucose, ketones, urine bacteria and Mucus patient started on Rocephin daily urine culture results reveal < 10,000 mixed gram positive everett Rocephin DC'd NONA on CKD (chronic kidney disease) stage 4, GFR 15-29 ml/min Chronic baseline which has been around 1.8 to 1.9 - Pt with stage 4 CKD, follows with Dr. Miller. - Pts renal function is higher than baseline - Gentle IVF x 1 day then DC - recheck BMP reveals BUN 17, creatinine 2.18 and GFR 22 Hypokalemia potassium 3.4 (05/15) replaced with 20 meq KCL Hyperlipidemia Chronic, continue home medications DVT prophylaxis with SCDs (2) Generalized weakness ICD Codes: R53.1 - Weakness Status: Acute (3) UTI (urinary tract infection) ICD Codes: N39.0 - Urinary tract infection, site not specified Status: Acute (4) Acute on chronic kidney failure ICD Codes: N17.9 - Acute kidney failure, unspecified; N18.9 - Chronic kidney disease, unspecified (5) Diabetes ICD Codes: E11.9 - Type 2 diabetes mellitus without complications Status: Chronic (6) HTN (hypertension) ICD Codes: I10 - Essential (primary) hypertension Status: Chronic (7) Hyperlipidemia ICD Codes: E78.5 - Hyperlipidemia, unspecified Status: Chronic Negin Rowe May 17, 2017 08:53
[2017-05-17] MEDS: ASPIRIN 81 MG CHEW TAB CHEW SCH (08:57)
[2017-05-17] MEDS: CHOLECALCIFEROL (VIT D3) 1000 UNIT TAB PO SCH (08:57)
[2017-05-17] MEDS: METOPROLOL TARTRATE 50 MG TAB PO SCH ×2 (08:58)
[2017-05-17] MEDS: LOSARTAN 50 MG TAB PO SCH (08:59)
[2017-05-17] MEDS: NIFEdipine 30 MG SUSTAINED RELEASE TAB PO SCH (08:59)
[2017-05-17] MEDS ORDERED: PANTOPRAZOLE SOD 40 MG DELAYED RELEASE TAB PO SCH (09:00)
[2017-05-17] MEDS: ATORVASTATIN 80 MG TAB PO SCH (09:00)
[2017-05-17] MEDS: RALOXIFENE HCL 60 MG TAB PO SCH (09:01)
--- NOTE | 2017-05-17 15:24 | EKG ---
Date Performed: 05/16/2017 Time Performed: 16:20:30 PTAGE: 76 years EKG: SINUS TACHYCARDIA WITH OCCASIONAL SUPRAVENTRICULAR PREMATURE COMPLEXES ABNORMAL RHYTHM ECG PREVIOUS TRACING : 05/16/2017 16.19 Compared to prior tracing no significant change DOCTOR: Maynor Gold Interpretating Date/Time 05/20/2017 06:51:04
== END 2017-05-17 17:07 | disposition home health service (06) | DRG 638 ==
LOC: NEPC 01:39 → NEDA 03:24 → UNDOADMOB 03:25 → NEPHCDU 04:37 → NEDA 04:37 → NEPHCDU 15:39 → NEPFCDU 15:39 → OBSVTOIN 05-16 16:50 → N05A 05-16 18:58 → NEPFCDU 05-16 18:58 → UNDODISOB 05-17 17:07
PROVIDERS: ADMIT Hospitalist; ATTEND Hospitalist
DX: E11.649 Type 2 diabetes mellitus with hypoglycemia without coma (principal); I69.354 Hemiplegia and hemiparesis following cerebral infarction affecting left non-dominant side; N18.4 Chronic kidney disease, stage 4 (severe); N17.9 Acute kidney failure, unspecified; E11.22 Type 2 diabetes mellitus with diabetic chronic kidney disease; E78.5 Hyperlipidemia, unspecified; I12.9 Hypertensive chronic kidney disease with stage 1 through stage 4 chronic kidney disease, or unspecified chronic kidney disease; K21.9 Gastro-esophageal reflux disease without esophagitis; L71.9 Rosacea, unspecified; E55.9 Vitamin D deficiency, unspecified; R00.0 Tachycardia, unspecified; E87.6 Hypokalemia; Z79.899 Other long term (current) drug therapy; Z79.84 Long term (current) use of oral hypoglycemic drugs; Z85.828 Personal history of other malignant neoplasm of skin; Z87.891 Personal history of nicotine dependence; Z87.442 Personal history of urinary calculi
CPT/HCPCS: 70450; 71010; 76937; 80048; 81001; 82550; 82948; 83605; 84484; 85025; 85610; 85730; 87040; 87086; 93005; 96361; 96365; 96372; C9113; G0378; G8987-GP; G8988-GP; J0696; J1815; J3480; J7030; J7040

== ENCOUNTER 2017-05-27 14:49 | Inpatient (IN) | payer MEDICARE ==
[~2017-05-27] VITALS: Ht 139.7 cm; Wt 37.7 kg
[~2017-05-27 14:49] MED LIST changes: +BLOOD GLUCOSE T1 TES; -GLIM2TAB PO; +LANCETS1 MI1; -PRED10 PO; -ROSU1TAB10 PO; +ROSU40 PO
[2017-05-27 15:08] VITALS: BP 134/66; PULSE 92; RESP 23; TEMP 98.2; O2SAT 95
--- NOTE | 2017-05-27 15:20 | PD ---
HPI Chief Complaint: Medical Clearance Time Seen by Provider: 15:20 Travel History International Travel<30 days: No Contact w/Intl Traveler<30days: No Traveled to known affect area: No History of Present Illness HPI 76 YO F with PMH of T2DM, HTN, CKD presents to the ED for evaluation of elevated heart rate. The patient states that she was seen by her home health nurse who noted HR of 140 today. Patient states that she had not taken her daily medications, including metoprolol, prior to this. On presentation she endorses 3 week history of productive cough. Endorses yellow green mucous production. She also endorses SOB, weakness for 6-8 days. Denies fever, chills. Denies CP, N/V, palpitations, dizziness. Does not routinely measure BG at home. PCP Dr. Carey. [facility] Past Medical History Asthma: No Blood Disorders: No Heart Rhythm Problems: No Cancer: No Cardiac Catheterization: Yes (stent in neck) Cardiovascular Problems: Yes High Cholesterol: Yes Chest Pain: No Congestive Heart Failure: No COPD: Yes Cerebrovascular Accident: Yes (left ssided weakness ,) Diabetes: Yes Patient Takes Glucophage: No Dialysis: Yes ( HX ) Diminished Hearing: No Endocrine: Yes Gastrointestinal Disorders: Yes GERD: Yes Glaucoma: No Genitourinary: Yes (DIALYSIS FOR A YEAR) Hepatitis: No Hiatal Hernia: Yes Hypertension: Yes Immune Disorder: No Kidney Stones: Yes (LITHOTRIPSY) Musculoskeletal: No Neurologic: Yes (STROKE 1994) Psychiatric: No Reproductive: No Respiratory: No Renal Failure: Yes (HEMODIALYSIS) Thyroid Disease: No Menopausal: No Past Surgical History Body Medical Devices: VAS CATH Cardiac Surgery: Yes (aniceto carotid endartectomy) Eye Surgery: Yes (CATARACT BILAT EYE) Genitourinary Surgery: Yes (INSERTION STENT LEFT KIDNEY; REMOVAL STENT) Pacemaker: No Other Surgery: Yes (BILATERAL CAROTID ENDARTERECTOMY.) Social History Alcohol Use: No Tobacco Use: Yes (QUIT 27 YEARS AGO) Substance Use: No Allergies-Medications (Allergen,Severity, Reaction): Coded Allergies: niacin (Unverified Allergy, Mild, HIVES, ITCHING, 05/14/17) adhesive (Unverified Allergy, Unknown, 05/14/17) alendronate sodium (Unverified Allergy, Unknown, 05/14/17) calcitonin (Unverified Allergy, Unknown, 05/14/17) Reported Meds & Prescriptions Reported Meds & Active Scripts Active Cozaar (Losartan Potassium) 50 Mg Tab 50 Mg PO DAILY Nifedipine ER 24 HR (Nifedipine) 30 Mg Tab 30 Mg PO DAILY Lopressor (Metoprolol Tartrate) 50 Mg Tab 50 Mg PO Q12HR Reported Crestor (Rosuvastatin Calcium) 40 Mg Tab 40 Mg PO DAILY Vitamin D-1000 (Cholecalciferol) 1,000 Unit Tab 2,000 Units PO DAILY Raloxifene (Raloxifene HCl) 60 Mg Tab 60 Mg PO DAILY Aspirin 81 Mg Chew 81 Mg CHEW DAILY Review of Systems Except as stated in HPI: all other systems reviewed are Neg Physical Exam Narrative GENERAL: Petite, frail white female in no acute distress. SKIN: Focused skin assessment warm/dry. HEAD: Normocephalic. EYES: No scleral icterus. No injection or drainage. NECK: Supple, trachea midline. No JVD or lymphadenopathy. CARDIOVASCULAR: Regular rate and rhythm without murmurs, gallops, or rubs. RESPIRATORY: Breath sounds mildly diminished in the bases bilaterally. End expiratory wheezing in upper bilateral lung norton L >R. No accessory muscle use. GASTROINTESTINAL: Abdomen soft, non-tender, nondistended. MUSCULOSKELETAL: No cyanosis, or edema. BACK: Nontender without obvious deformity. No CVA tenderness. Data Data Last Documented VS Vital Signs Date Time Temp Pulse Resp B/P (MAP) Pulse Ox O2 Delivery O2 Flow Rate FiO2 05/27/17 19:27 103 20 154/72 (99) 96 Room Air 05/27/17 15:08 98.2 Orders Orders Chest, Single Ap (05/27/17 ) Complete Blood Count With Diff (05/27/17 15:24) Comprehensive Metabolic Panel (05/27/17 15:24) B-Type Natriuretic Peptide (05/27/17 15:24) Act Partial Throm Time (Ptt) (05/27/17 15:24) Prothrombin Time / Inr (Pt) (05/27/17 15:24) Troponin I (05/27/17 15:24) Urinalysis - C+S If Indicated (05/27/17 15:24) Iv Access Insert/Monitor (05/27/17 15:24) Electrocardiogram (05/27/17 15:24) Ecg Monitoring (05/27/17 15:24) Oximetry (05/27/17 15:24) Sodium Chloride 0.9% Flush (Ns Flush) (05/27/17 15:30) Albuterol-Ipratropium Neb (Duoneb Neb) (05/27/17 15:30) Sodium Chlor 0.9% 1000 Ml Inj (Ns 1000 M (05/27/17 19:15) Admit Order (Ed Use Only) (05/27/17 19:36) Labs Laboratory Tests Test 05/27/17 17:08 05/27/17 18:20 White Blood Count 7.8 TH/MM3 Red Blood Count 4.01 MIL/MM3 Hemoglobin 12.5 GM/DL Hematocrit 36.7 % Mean Corpuscular Volume 91.5 FL Mean Corpuscular Hemoglobin 31.0 PG Mean Corpuscular Hemoglobin Concent 33.9 % Red Cell Distribution Width 16.1 % Platelet Count 500 TH/MM3 Mean Platelet Volume 8.7 FL Neutrophils (%) (Auto) 81.9 % Lymphocytes (%) (Auto) 6.5 % Monocytes (%) (Auto) 7.8 % Eosinophils (%) (Auto) 2.5 % Basophils (%) (Auto) 1.3 % Neutrophils # (Auto) 6.4 TH/MM3 Lymphocytes # (Auto) 0.5 TH/MM3 Monocytes # (Auto) 0.6 TH/MM3 Eosinophils # (Auto) 0.2 TH/MM3 Basophils # (Auto) 0.1 TH/MM3 CBC Comment DIFF FINAL Differential Comment Prothrombin Time 10.8 SEC Prothromb Time International Ratio 1.1 RATIO Activated Partial Thromboplast Time 24.0 SEC B-Type Natriuretic Peptide 63 PG/ML Blood Urea Nitrogen 31 MG/DL Creatinine 2.16 MG/DL Random Glucose 136 MG/DL Total Protein 7.4 GM/DL Albumin 2.4 GM/DL Calcium Level 13.2 MG/DL Alkaline Phosphatase 80 U/L Aspartate Amino Transf (AST/SGOT) 39 U/L Alanine Aminotransferase (ALT/SGPT) 24 U/L Total Bilirubin 0.6 MG/DL Sodium Level 135 MEQ/L Potassium Level 3.3 MEQ/L Chloride Level 100 MEQ/L Carbon Dioxide Level 26.1 MEQ/L Anion Gap 9 MEQ/L Estimat Glomerular Filtration Rate 22 ML/MIN Protein Corrected Calcium 13.0 MG/DL Troponin I 0.03 NG/ML MDM Medical Decision Making Medical Screen Exam Complete: Yes Emergency Medical Condition: Yes Differential Diagnosis bronchitis versus PNA versus metabolic derangement versus UTI Narrative Course 76 YO F with PMH of T2DM, HTN, CKD presents to the ED for evaluation of elevated heart rate. The patient states that she was seen by her home health nurse who noted HR of 140 today. Patient states that she had not taken her daily medications, including metoprolol, prior to this. On presentation she endorses 3 week history of productive cough, yellow green mucous production. She also endorses SOB, weakness for 6-8 days. She is currently being treated for bronchitis. PCP Dr. Carey. Vitals reviewed. Heart rate 92 on presentation. Physical exam reveals a pleasant white female in no acute distress. Breath sounds mildly diminished in the bases bilaterally. End expiratory wheezing in upper bilateral lung norton L >R. No lower extremity edema. IV was established. Patient was administered duo nebs 2. EKG rate 97, sinus rhythm. DC interval 158, QRS 67, QTc 387. Normal axis. No acute ST changes. Reviewed by Dr. Gonzalez. Cardiac enzymes: Negative 1. CXR: No acute abnormality or interval change. INR 1.1. CBC no leukocytosis or anemia noted. CMP kidney function at baseline. Protein corrected calcium 13.0, elevated from last draw approximately 3 weeks ago. Discussed the results of the workup with the patient. She can identify no reason for the elevated calcium. She is agreeable to admission. I spoke with Dr. Da Silva who agrees to accept the patient to the medicine service under Dr. Hyman. Please see medicine notes for disposition. Gretchen Diehl May 27, 2017 15:20
[2017-05-27] MEDS ORDERED: SODIUM CHLORIDE 0.9% FLUSH 10 ML FLUSH IVF PRN (15:30)
[2017-05-27] MEDS: RESP: ALBUTEROL 2.5 MG/IPRATROPIUM 0.5 MG NEB (SCH) INH (15:42)
--- NOTE | 2017-05-27 16:05 | RADRPT ---
EXAM DATE/TIME: 05/27/2017 15:31 [facility] COMPARISON: CHEST SINGLE AP, May 14, 2017, 2:07. INDICATIONS : Cough, shortness of breath. MEDICAL HISTORY : Stroke. Diabetes mellitus type II. Hypercholesterolemia. Hypertension. SURGICAL HISTORY : Bilateral Carotid Endardectomy ENCOUNTER: Initial ACUITY: 1 day PAIN SCORE: 0/10 LOCATION: Bilateral chest FINDINGS: A single view of the chest demonstrates the lungs to be symmetrically aerated without evidence of mas s, infiltrate or effusion. The cardiomediastinal contours are unremarkable. Osseous structures are intact. CONCLUSION: 1. No acute abnormality or significant interval change. Talat Michelle MD on May 27, 2017 at 16:03 Board Certified Radiologist. This report was verified electronically.
[2017-05-27 17:33] LABS: AUTOMATED NEUTROPHIL # 6.4 TH/MM3 (1.8-7.7); BASOPHIL # 0.1 TH/MM3 (0-0.2); BASOPHIL % 1.3 % (0.0-2.0); EOSINOPHIL # 0.2 TH/MM3 (0-0.4); EOSINOPHIL % 2.5 % (0.0-4.0); HEMATOCRIT 36.7 % (35.0-46.0); HEMO FLAGS DIFF FINAL; LYMPH % 6.5 % (9.0-44.0); LYMPHOCYTE # 0.5 TH/MM3 (1.0-4.8); MEAN CELL VOLUME 91.5 FL (80.0-100.0); MEAN CORPUSCULAR HGB CONC 33.9 % (32.0-36.0); MONO % 7.8 % (0.0-8.0); NEUT % 81.9 % (16.0-70.0); PLATELET COUNT 500 TH/MM3 (150-450); RED BLOOD COUNT 4.01 MIL/MM3 (4.00-5.30); RED CELL DISTRIBUTION WIDTH 16.1 % (11.6-17.2); WHITE BLOOD COUNT 7.8 TH/MM3 (4.0-11.0)
[2017-05-27 17:53] LABS: INTERNATIONAL NORMALIZED RATIO 1.1 RATIO; PROTHROMBIN TIME - PATIENT 10.8 SEC (9.8-11.6)
[2017-05-27 17:55] LABS: TOTAL BILIRUBIN ADULT 0.6 MG/DL (0.2-1.0)
[2017-05-27 18:47] VITALS: BP 106/55; PULSE 103; RESP 19; O2SAT 95
[2017-05-27 18:56] LABS: BICARBONATE 26.1 MEQ/L (21.0-32.0)
[2017-05-27 18:57] LABS: POTASSIUM 3.3 MEQ/L (3.5-5.1)
[2017-05-27] MEDS ORDERED: SODIUM CHLOR 0.9% 1000 ML INJ 1,000 ML IV ONE (19:15)
[2017-05-27 19:27] VITALS: BP 154/72; PULSE 103; RESP 20; O2SAT 96
[2017-05-27] MEDS ORDERED: NALOXONE HCL 0.4 MG/ML AMP IV PUSH PRN (20:00)
[2017-05-27] MEDS ORDERED: MAGNESIUM HYDROXIDE SUSP 30 ML CUP PO PRN (20:00)
[2017-05-27] MEDS ORDERED: ONDANSETRON HCL 4 MG/2 ML VIAL IVP PRN (20:00)
[2017-05-27] MEDS ORDERED: DEXTROSE 50% IN WATER 50 ML VIAL(D50) IV PUSH PRN (20:00)
[2017-05-27] MEDS ORDERED: GLUCAGON 1 MG/ML VIAL OTHER PRN (20:00)
[2017-05-27] MEDS ORDERED: ACETAMINOPHEN 325 MG TAB PO PRN (20:00)
[2017-05-27] MEDS ORDERED: BISACODYL 10 MG SUPP RECTAL PRN (20:00)
[2017-05-27] MEDS ORDERED: LACTULOSE SYRUP 20 GM/30 ML CUP PO PRN (20:00)
[2017-05-27] MEDS ORDERED: SENNOSIDES 8.6 MG TAB PO PRN (20:00)
[2017-05-27] MEDS ORDERED: SODIUM CHLORIDE 0.9% FLUSH 10 ML FLUSH IV FLUSH PRN (20:00)
--- NOTE | 2017-05-27 20:20 | HHI.HP ---
HPI Service [facility] Hospitalists Primary Care Physician Reginaldo Carey MD, PhD Admission Diagnosis hypercalcemia Chief Complaint: sent by home health for elevated heart rate generalized weakness Travel History International Travel<30 Days: No Contact w/Intl Traveler <30 Da: No Traveled to Known Affected Are: No History of Present Illness 76 y/o w female with hx HTN,hyperlipidemia,dm with recent low glucose and was on meds and may have been d/emily ,ckd stage4 on 05/13/17 was admitted for slurred speech related to low glucose ,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 Home health checked patient today and sent to er with elevated heart rate but did not take her metoprolol which in march was increased to 50 bid ,in ER heart rate has been stable . Patient under went lab work and has cr 2.1 at baseline but calcium level was at 13 which is new from review of old labs done 1 week or so ago. Appears a little dehydrated will give NS at 75cc/hr and follow up calcium levels . There has been no additional meds given since last admit in April. 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 stones Reported Medications Blood Glucose Test Strips Strips Strip Ea .ROUTE DIRECTED Lancets 1 Mis Mis Ea .ROUTE DIRECTED Cozaar (Losartan Potassium) 50 Mg Tab 50 Mg PO DAILY Nifedipine ER 24 HR (Nifedipine) 30 Mg Tab 30 Mg PO DAILY Lopressor (Metoprolol Tartrate) 50 Mg Tab 50 Mg PO Q12HR Reported Crestor (Rosuvastatin Calcium) 40 Mg Tab 40 Mg PO DAILY Vitamin D-1000 (Cholecalciferol) 1,000 Unit Tab 2,000 Units PO DAILY Raloxifene (Raloxifene HCl) 60 Mg Tab 60 Mg PO DAILY Aspirin 81 Mg Chew 81 Mg CHEW DAILY Allergies: Coded Allergies: niacin (Unverified Allergy, Mild, HIVES, ITCHING, 05/14/17) adhesive (Unverified Allergy, Unknown, 05/14/17) alendronate sodium (Unverified Allergy, Unknown, 05/14/17) calcitonin (Unverified Allergy, Unknown, 05/14/17) Social History current NS,ND lives alone and having more difficult time taking care of self Physical Exam Vital Signs Vital Signs Date Time Temp Pulse Resp B/P (MAP) Pulse Ox O2 Delivery O2 Flow Rate FiO2 05/27/17 19:27 103 20 154/72 (99) 96 Room Air 05/27/17 18:47 103 19 106/55 (72) 95 Room Air 05/27/17 15:09 92 23 05/27/17 15:08 98.2 92 23 134/66 (88) 95 Room Air Physical Exam GENERAL: This is a poor-nourished, poor-developed patient, in no apparent distress. SKIN: No rashes, ecchymoses or lesions. Cool and dry. HEAD: Atraumatic. Normocephalic. No temporal or scalp tenderness. EYES: Pupils equal round and reactive. Extraocular motions intact. No scleral icterus. No injection or drainage. ENT: Nose without bleeding, purulent drainage or septal hematoma. Throat without erythema, tonsillar hypertrophy or exudate. Uvula midline. Airway patent. NECK: Trachea midline. No JVD or lymphadenopathy. Supple, nontender, no meningeal signs. CARDIOVASCULAR: Regular rate and rhythm without murmurs, gallops, or rubs. RESPIRATORY: Clear to auscultation. Breath sounds equal bilaterally. No wheezes , rales, or rhonchi. GASTROINTESTINAL: Abdomen soft, non-tender, nondistended. No hepato-splenomegaly , or palpable masses. No guarding. MUSCULOSKELETAL: Extremities without clubbing, cyanosis, or edema. No joint tenderness, effusion, or edema noted. No calf tenderness. Negative Homans sign bilaterally. NEUROLOGICAL: Awake and alert. Cranial nerves II through XII intact. Motor and sensory grossly within normal limits. 3 out of 5 muscle left upper and lower extremities chronic. Normal speech. Laboratory Laboratory Tests Test 05/27/17 17:08 05/27/17 18:20 White Blood Count 7.8 Red Blood Count 4.01 Hemoglobin 12.5 Hematocrit 36.7 Mean Corpuscular Volume 91.5 Mean Corpuscular Hemoglobin 31.0 Mean Corpuscular Hemoglobin Concent 33.9 Red Cell Distribution Width 16.1 Platelet Count 500 Mean Platelet Volume 8.7 Neutrophils (%) (Auto) 81.9 Lymphocytes (%) (Auto) 6.5 Monocytes (%) (Auto) 7.8 Eosinophils (%) (Auto) 2.5 Basophils (%) (Auto) 1.3 Neutrophils # (Auto) 6.4 Lymphocytes # (Auto) 0.5 Monocytes # (Auto) 0.6 Eosinophils # (Auto) 0.2 Basophils # (Auto) 0.1 CBC Comment DIFF FINAL Differential Comment Prothrombin Time 10.8 Prothromb Time International Ratio 1.1 Activated Partial Thromboplast Time 24.0 B-Type Natriuretic Peptide 63 Blood Urea Nitrogen 31 Creatinine 2.16 Random Glucose 136 Total Protein 7.4 Albumin 2.4 Calcium Level 13.2 Alkaline Phosphatase 80 Aspartate Amino Transf (AST/SGOT) 39 Alanine Aminotransferase (ALT/SGPT) 24 Total Bilirubin 0.6 Sodium Level 135 Potassium Level 3.3 Chloride Level 100 Carbon Dioxide Level 26.1 Anion Gap 9 Estimat Glomerular Filtration Rate 22 Protein Corrected Calcium 13.0 Troponin I 0.03 Result Diagram: 05/27/17 1708 05/27/17 1820 Imaging Last 24 hours Impressions Chest X-Ray 05/27/17 0000 Signed Impressions: Service Date/Time: Saturday, May 27, 2017 15:31 - CONCLUSION: 1. No acute abnormality or significant interval change. Talat Michelle MD Course in er started on iv FLUIDS Caprini VTE Risk Assessment Caprini VTE Risk Assessment: Mod/High Risk (score >= 2) Caprini Risk Assessment Model Point Value = 1 Point Value = 2 Point Value = 3 Point Value = 5 Age 41-60 Minor surgery BMI > 25 kg/m2 Swollen legs Varicose veins or History of unexplained or recurrent spontaneous Oral contraceptives or hormone replacement Sepsis (< 1 month) Serious lung disease, including pneumonia (< 1 month) Abnormal pulmonary function Acute myocardial infarction Congestive heart failure (< 1 month) History of inflammatory bowel disease Medical patient at bed rest Age 61-74 Arthroscopic surgery Major open surgery (> 45 min) Laparoscopic surgery (> 45 min) Malignancy Confined to bed (> 72 hours) Immobilizing plaster cast Central venous access Age >= 75 History of VTE Family history of VTE Factor V Leiden Prothrombin [id number] Lupus anticoagulant Anticardiolipin antibodies Elevated serum homocysteine Heparin-induced thrombocytopenia Other congenital or acquired thrombophilia Stroke (< 1 month) Elective arthroplasty Hip, pelvis, or leg fracture Acute spinal cord injury (< 1 month) Prophylaxis Regimen Total Risk Factor Score Risk Level Prophylaxis Regimen 0-1 Low Early ambulation 2 Moderate Order ONE of the following: *Sequential Compression Device (SCD) *Heparin 5000 units SQ BID 3-4 Higher Order ONE of the following medications: *Heparin 5000 units SQ TID *Enoxaparin/Lovenox 40 mg SQ daily (WT < 150 kg, CrCl > 30 mL/min) *Enoxaparin/Lovenox 30 mg SQ daily (WT < 150 kg, CrCl > 10-29 mL/min) *Enoxaparin/Lovenox 30 mg SQ BID (WT < 150 kg, CrCl > 30 mL/min) AND/OR *Sequential Compression Device (SCD) 5 or more Highest Order ONE of the following medications: *Heparin 5000 units SQ TID (Preferred with Epidurals) *Enoxaparin/Lovenox 40 mg SQ daily (WT < 150 kg, CrCl > 30 mL/min) *Enoxaparin/Lovenox 30 mg SQ daily (WT < 150 kg, CrCl > 10-29 mL/min) *Enoxaparin/Lovenox 30 mg SQ BID (WT < 150 kg, CrCl > 30 mL/min) AND *Sequential Compression Device (SCD) Assessment and Plan Problem List: (1) Hypercalcemia ICD Codes: E83.52 - Hypercalcemia Plan: will hydrate slowly recheck labs there is hx of pelvic mass will get noncontrast CT abd/pelvis also there was some slurred speech last admit if did not have CT head will order (2) CKD (chronic kidney disease) stage 4, GFR 15-29 ml/min ICD Codes: N18.4 - Chronic kidney disease, stage 4 (severe) Status: Chronic Plan: ckd stage4 appears stable based on last weeks labs will follow (3) Poor nutrition ICD Codes: E63.9 - Nutritional deficiency, unspecified Status: Chronic Plan: may need dietary to help with nutrition also patient lives alone may need SNF (4) HTN (hypertension) ICD Codes: I10 - Essential (primary) hypertension Status: Chronic Plan: continue home medication (5) Diabetes ICD Codes: E11.9 - Type 2 diabetes mellitus without complications Status: Chronic Plan: for now use sliding scale with coverage Assessment and Plan as above recheck labs after some hydration Code Status full Discussed Condition With patient Problem Qualifiers (1) Diabetes: Hollis Da Silva MD May 27, 2017 20:20
[2017-05-27 20:58] VITALS: BP 121/61; PULSE 100; RESP 17; TEMP 97.9; O2SAT 96
[2017-05-27] MEDS: INSULIN ASPART SUPPLEMENTAL SCALE SQ SCH (21:00)
[2017-05-27] MEDS: SODIUM CHLORIDE 0.9% FLUSH 10 ML FLUSH IV FLUSH SCH (21:00)
--- NOTE | 2017-05-27 21:48 | EKG ---
Date Performed: 05/27/2017 Time Performed: 15:43:43 PTAGE: 76 years EKG: Sinus rhythm POSSIBLE LEFT ATRIAL ENLARGEMENT NONSPECIFIC ST ELEVATION BORDERLINE ECG PREVIOUS TRACING : 05/16/2017 16.20 Compared to the previous tracing rate slower DOCTOR: Hira Ragsdale Interpretating Date/Time 05/27/2017 21:47:01
[2017-05-27] MEDS: METOPROLOL TARTRATE 50 MG TAB PO SCH (22:37)
[2017-05-27] MEDS: DOCUSATE SODIUM 50 MG/SENNA 8.6 MG TAB PO SCH (22:37)
[2017-05-27] MEDS: SODIUM CHLOR 0.9% 1000 ML INJ 1,000 ML IV SCH (22:38)
--- NOTE | 2017-05-27 23:00 | RADRPT ---
EXAM DATE/TIME: 05/27/2017 21:28 [place] COMPARISON: No previous studies available for comparison. INDICATIONS : Evaluate abdominal mass. Abnormal renal ultrasound demonstrating no normal left kidney. There was a 9 cm fluid density mass possibly representing a hydronephrotic sac. ORAL CONTRAST: No oral contrast ingested. RADIATION DOSE: 4.48 CTDIvol (mGy) MEDICAL HISTORY : Cardiovascular disease. Renal calculi. Hernia, hiatal.renal failure SURGICAL HISTORY : None. ENCOUNTER: Initial ACUITY: 1 day PAIN SCALE: 0/10 LOCATION: abdomen TECHNIQUE: Volumetric scanning of the abdomen and pelvis was performed. Using automated exposure control and ad justment of the mA and/or kV according to patient size, radiation dose was kept as low as reasonably achievable to obtain optimal diagnostic quality images. DICOM format image data is available electro nically for review and comparison. FINDINGS: LOWER LUNGS: The visualized lower lungs are clear. There is a small amount of pericardial fluid present. LIVER: Homogeneous density without lesion. There is no dilation of the biliary tree. There are calcified ga llstones layering dependently in the gallbladder. SPLEEN: Normal size without lesion. PANCREAS: Within normal limits. KIDNEYS: The right kidney is unremarkable. There is no normal left kidney. There is a large cystic structure m easuring up to approximately 5.2 x 6 x 9.5 cm with apparent thin rim of cortical tissue. There are se veral small benign-appearing calcifications along the periphery. There is no dilated ureter. ADRENAL GLANDS: Within normal limits. VASCULAR: There is no aortic aneurysm. BOWEL/MESENTERY: The stomach, small bowel, and colon demonstrate no acute abnormality. There are multiple diverticuli present. There is no free intraperitoneal air or fluid. ABDOMINAL WALL: Within normal limits. RETROPERITONEUM: There is no lymphadenopathy. BLADDER: No wall thickening or mass. REPRODUCTIVE: Uterus is enlarged and contains a heterogeneous mass with low density areas. This measures up to 4.2 x 4.9 x 4.8 cm in diameter. There is a simple appearing cystic structure in the left adnexa measuring up to 2.7 x 2.5 cm. This measures 6 Hounsfield units in density. INGUINAL: There is no lymphadenopathy or hernia. MUSCULOSKELETAL: Within normal limits for patient age. CONCLUSION: 1. Large complex fluid density mass involving the left kidney with apparent thin cortical rim of elmer ical tissue consistent with a hydronephrotic sac. The right kidney is unremarkable. 2. Enlarged uterus with heterogeneous central mass which is nonspecific. This may represent an unusua l appearing leiomyoma. 3. Simple appearing 2.5 cm cyst in the left adnexa. 4. Calcified gallstones layering dependently in the gallbladder. 1. Angelito Walker MD on May 27, 2017 at 22:52 Board Certified Radiologist. This report was verified electronically.
[2017-05-27 23:40] VITALS: BP_SYST 65; PULSE 80; RESP 18; TEMP 97.9; O2SAT 92
[2017-05-28] VITALS (7 sets, daily range): BP systolic 121–140; BP diastolic 57–69; PULSE 84–109; RESP 16–18; TEMP 97.4–98.5; O2SAT 92–97
[2017-05-28 00:17] LABS: BACTERIA, URINE RARE /hpf; BLOOD, URINE TRACE (NEG); COMMENT (UR) CULT NOT INDICATED; CULTURE IF INDICATED CULT NOT INDICATED; GLUCOSE,URINE 70 mg/dL (NEG); HYALINE CAST, URINE 30 /lpf (RARE); KETONE, URINE NEG (NEG); NITRITE,URINE NEG (NEG); PH, URINE 5.5 (5.0-8.5); SQUAMOUS EPITHELIAL CELL URINE 3 /hpf (0-5); URINE COLOR YELLOW (YELLW/STRAW)
[2017-05-28 00:24] LABS: CALCIUM OXALATE CRYSTALS,URINE FEW /hpf
[2017-05-28 07:29] LABS: AUTOMATED NEUTROPHIL # 4.1 TH/MM3 (1.8-7.7); BASOPHIL # 0.1 TH/MM3 (0-0.2); BASOPHIL % 1.8 % (0.0-2.0); EOSINOPHIL # 0.3 TH/MM3 (0-0.4); EOSINOPHIL % 5.7 % (0.0-4.0); HEMATOCRIT 30.7 % (35.0-46.0); HEMO FLAGS DIFF FINAL; LYMPH % 6.7 % (9.0-44.0); LYMPHOCYTE # 0.4 TH/MM3 (1.0-4.8); MEAN CELL VOLUME 92.8 FL (80.0-100.0); MEAN CORPUSCULAR HEMOGLOBIN 30.9 PG (27.0-34.0); MEAN CORPUSCULAR HGB CONC 33.3 % (32.0-36.0); MONO % 8.3 % (0.0-8.0); NEUT % 77.5 % (16.0-70.0); PLATELET COUNT 314 TH/MM3 (150-450); RED BLOOD COUNT 3.31 MIL/MM3 (4.00-5.30); RED CELL DISTRIBUTION WIDTH 16.3 % (11.6-17.2); WHITE BLOOD COUNT 5.3 TH/MM3 (4.0-11.0)
[2017-05-28 07:53] LABS: ANION GAP 9 MEQ/L (5-15); AST (GOT) 27 U/L (15-37); BICARBONATE 23.1 MEQ/L (21.0-32.0); BLOOD UREA NITROGEN 26 MG/DL (7-18); CHLORIDE 110 MEQ/L (98-107); GLOMERULAR FILTRATION RATE 28 ML/MIN (>89); POTASSIUM 3.2 MEQ/L (3.5-5.1); SODIUM (NA) 142 MEQ/L (136-145)
[2017-05-28 08:00] LABS: ALKALINE PHOSPHATASE 60 U/L (45-117); ALT (GPT) 21 U/L (10-53); TOTAL BILIRUBIN ADULT 0.3 MG/DL (0.2-1.0)
[2017-05-28] MEDS ORDERED: DEXTROSE 50% IN WATER 50 ML VIAL(D50) IV PUSH PRN (08:00)
[2017-05-28] MEDS ORDERED: GLUCAGON 1 MG/ML VIAL OTHER PRN (08:00)
[2017-05-28] MEDS: INSULIN ASPART SUPPLEMENTAL SCALE SQ SCH ×4 (08:00→21:00)
[2017-05-28] MEDS: ATORVASTATIN 80 MG TAB PO SCH (09:00)
[2017-05-28] MEDS: RALOXIFENE HCL 60 MG TAB PO SCH (09:00)
[2017-05-28] MEDS: SODIUM CHLOR 0.9% 1000 ML INJ 1,000 ML IV SCH (09:20)
[2017-05-28] MEDS: ASPIRIN 81 MG CHEW TAB CHEW SCH (11:35)
[2017-05-28] MEDS: NIFEdipine 30 MG SUSTAINED RELEASE TAB PO SCH (11:35)
[2017-05-28] MEDS: DOCUSATE SODIUM 50 MG/SENNA 8.6 MG TAB PO SCH ×2 (11:36→21:55)
[2017-05-28] MEDS: LOSARTAN 50 MG TAB PO SCH (11:38)
[2017-05-28] MEDS: SODIUM CHLORIDE 0.9% FLUSH 10 ML FLUSH IV FLUSH SCH ×2 (11:39→21:00)
[2017-05-28] MEDS: METOPROLOL TARTRATE 50 MG TAB PO SCH ×2 (11:39→21:56)
[2017-05-28] MEDS: CHOLECALCIFEROL (VIT D3) 1000 UNIT TAB PO SCH (11:39)
[2017-05-28] MEDS ORDERED: POTASSIUM CHLORIDE 20 MEQ CONTROLLED RELEASE TAB PO ONE (15:30)
--- NOTE | 2017-05-28 16:59 | HHI.PR ---
Subjective Remarks Patient reports she feels better asking when she can leave the hospital Objective Vitals Vital Signs Date Time Temp Pulse Resp B/P (MAP) Pulse Ox O2 Delivery O2 Flow Rate FiO2 05/28/17 16:15 97.4 89 16 127/57 (80) 95 05/28/17 11:55 98.0 109 18 133/65 (87) 97 05/28/17 07:50 97.9 100 18 122/60 (80) 94 05/28/17 03:09 97.4 84 18 140/69 (92) 92 05/27/17 23:40 97.9 80 18 65/ 92 05/27/17 20:58 97.9 100 17 121/61 (81) 96 05/27/17 20:32 05/27/17 19:27 103 20 154/72 (99) 96 Room Air 05/27/17 18:47 103 19 106/55 (72) 95 Room Air 05/28/17 05/28/17 05/29/17 15:00 23:00 07:00 Output Total 200 ml Balance -200 ml Output Urine Total 200 ml Result Diagram: 05/28/17 0654 05/28/17 0654 Other Results Laboratory Tests Test 05/27/17 17:08 05/27/17 18:20 05/27/17 23:40 05/28/17 06:54 White Blood Count 7.8 TH/MM3 5.3 TH/MM3 Red Blood Count 4.01 MIL/MM3 3.31 MIL/MM3 Hemoglobin 12.5 GM/DL 10.2 GM/DL Hematocrit 36.7 % 30.7 % Mean Corpuscular Volume 91.5 FL 92.8 FL Mean Corpuscular Hemoglobin 31.0 PG 30.9 PG Mean Corpuscular Hemoglobin Concent 33.9 % 33.3 % Red Cell Distribution Width 16.1 % 16.3 % Platelet Count 500 TH/MM3 314 TH/MM3 Mean Platelet Volume 8.7 FL 8.0 FL Neutrophils (%) (Auto) 81.9 % 77.5 % Lymphocytes (%) (Auto) 6.5 % 6.7 % Monocytes (%) (Auto) 7.8 % 8.3 % Eosinophils (%) (Auto) 2.5 % 5.7 % Basophils (%) (Auto) 1.3 % 1.8 % Neutrophils # (Auto) 6.4 TH/MM3 4.1 TH/MM3 Lymphocytes # (Auto) 0.5 TH/MM3 0.4 TH/MM3 Monocytes # (Auto) 0.6 TH/MM3 0.4 TH/MM3 Eosinophils # (Auto) 0.2 TH/MM3 0.3 TH/MM3 Basophils # (Auto) 0.1 TH/MM3 0.1 TH/MM3 CBC Comment DIFF FINAL DIFF FINAL Differential Comment Prothrombin Time 10.8 SEC Prothromb Time International Ratio 1.1 RATIO Activated Partial Thromboplast Time 24.0 SEC B-Type Natriuretic Peptide 63 PG/ML Blood Urea Nitrogen 31 MG/DL 26 MG/DL Creatinine 2.16 MG/DL 1.77 MG/DL Random Glucose 136 MG/DL 85 MG/DL Total Protein 7.4 GM/DL 4.9 GM/DL Albumin 2.4 GM/DL 1.7 GM/DL Calcium Level 13.2 MG/DL 10.7 MG/DL Alkaline Phosphatase 80 U/L 60 U/L Aspartate Amino Transf (AST/SGOT) 39 U/L 27 U/L Alanine Aminotransferase (ALT/SGPT) 24 U/L 21 U/L Total Bilirubin 0.6 MG/DL 0.3 MG/DL Sodium Level 135 MEQ/L 142 MEQ/L Potassium Level 3.3 MEQ/L 3.2 MEQ/L Chloride Level 100 MEQ/L 110 MEQ/L Carbon Dioxide Level 26.1 MEQ/L 23.1 MEQ/L Anion Gap 9 MEQ/L 9 MEQ/L Estimat Glomerular Filtration Rate 22 ML/MIN 28 ML/MIN Protein Corrected Calcium 13.0 MG/DL Troponin I 0.03 NG/ML Urine Color YELLOW Urine Turbidity HAZY Urine pH 5.5 Urine Specific [place] 1.020 Urine Protein 100 mg/dL Urine Glucose (UA) 70 mg/dL Urine Ketones NEG mg/dL Urine Occult Blood TRACE Urine Nitrite NEG Urine Bilirubin NEG Urine Urobilinogen LESS THAN 2.0 MG/DL Urine Leukocyte Esterase NEG Urine RBC 3 /hpf Urine WBC 4 /hpf Urine Squamous Epithelial Cells 3 /hpf Urine Calcium Oxalate Crystals FEW /hpf Urine Bacteria RARE /hpf Urine Hyaline Casts 30 /lpf Microscopic Urinalysis Comment CULT NOT INDICATED Imaging Last 24 hours Impressions Chest X-Ray 05/27/17 0000 Signed Impressions: Service Date/Time: Saturday, May 27, 2017 15:31 - CONCLUSION: 1. No acute abnormality or significant interval change. Talat Michelle MD Objective Remarks GENERAL: This is a poor-nourished, poor-developed patient, in no apparent distress. CARDIOVASCULAR: Regular rate and rhythm RESPIRATORY: Clear to auscultation. Breath sounds equal bilaterally. GASTROINTESTINAL: Abdomen soft, non-tender, nondistended. No guarding. MUSCULOSKELETAL: Extremities without clubbing, cyanosis, or edema. No joint tenderness, effusion, or edema noted. No calf tenderness. Negative Homans sign bilaterally. NEUROLOGICAL: Awake and alert. No focal. Motor and sensory grossly within normal limits. 3 out of 5 muscle left upper and lower extremities chronic. Normal speech. A/P Problem List: (1) Hypercalcemia ICD Codes: E83.52 - Hypercalcemia Plan: Calcium improving with IV hydration 05/28/[address] abdomen and pelvis reviewed and reveals: Large complex fluid density mass involving the left kidney with apparent thin cortical rim of cortical tissue consistent with a hydronephrotic sac. The right kidney is unremarkable. Enlarged uterus consistent appearance with Leiomyoma. Simple appearing 2.5 cm cyst in the left adnexa cyst. Calcified gallstone layering dependently in the gallbladder (2) CKD (chronic kidney disease) stage 4, GFR 15-29 ml/min ICD Codes: N18.4 - Chronic kidney disease, stage 4 (severe) Status: Chronic Plan: ckd stage4 appears stable based on last weeks labs will follow (3) Poor nutrition ICD Codes: E63.9 - Nutritional deficiency, unspecified Status: Chronic Plan: may need dietary to help with nutrition also patient lives alone may need SNF Discussed with patient her recent admissions and declining ability to care for herself in her current state. Patient agrees to short-term SNF placement for rehabilitation and strengthening. Plan to discharge tomorrow to SNF (4) HTN (hypertension) ICD Codes: I10 - Essential (primary) hypertension Status: Chronic Plan: continue home medication (5) Diabetes ICD Codes: E11.9 - Type 2 diabetes mellitus without complications Status: Chronic Plan: for now use sliding scale with coverage Assessment and Plan Patient examined. Assessment and plan formulated with Negin Rowe PA-C. I agree with the above. vitals and labs stable Pt with recent recurrent hospitalizations. Pt with generalized weakness. obtain PT evaluation Anticipate d/c to SNF 05/29/17 Problem Qualifiers (1) Diabetes: Negin Rowe May 28, 2017 16:59 Ariel Hyman DO May 28, 2017 23:17
[2017-05-29] VITALS (7 sets, daily range): BP systolic 106–145; BP diastolic 56–70; PULSE 79–93; RESP 18–20; TEMP 97.6–98.4; O2SAT 92–95
[2017-05-29] MEDS: SODIUM CHLOR 0.9% 1000 ML INJ 1,000 ML IV SCH ×2 (00:12→11:25)
[2017-05-29] MEDS: INSULIN ASPART SUPPLEMENTAL SCALE SQ SCH ×2 (08:00→11:27)
[2017-05-29] MEDS: NIFEdipine 30 MG SUSTAINED RELEASE TAB PO SCH (08:34)
[2017-05-29] MEDS: LOSARTAN 50 MG TAB PO SCH (08:34)
[2017-05-29] MEDS: DOCUSATE SODIUM 50 MG/SENNA 8.6 MG TAB PO SCH (08:34)
[2017-05-29] MEDS: ASPIRIN 81 MG CHEW TAB CHEW SCH (08:34)
[2017-05-29] MEDS: SODIUM CHLORIDE 0.9% FLUSH 10 ML FLUSH IV FLUSH SCH (08:34)
[2017-05-29] MEDS: METOPROLOL TARTRATE 50 MG TAB PO SCH (08:34)
[2017-05-29] MEDS: CHOLECALCIFEROL (VIT D3) 1000 UNIT TAB PO SCH (08:35)
[2017-05-29] MEDS: ATORVASTATIN 80 MG TAB PO SCH (08:37)
--- NOTE | 2017-05-29 08:56 | HHI.DS ---
Discharge Summary Admission Date May 27, 2017 at 21:14 Discharge Date: May 29, 2017 Admitting Diagnosis hypercalcemia (1) Hypercalcemia ICD Codes: E83.52 - Hypercalcemia (2) CKD (chronic kidney disease) stage 4, GFR 15-29 ml/min ICD Codes: N18.4 - Chronic kidney disease, stage 4 (severe) Status: Chronic (3) Poor nutrition ICD Codes: E63.9 - Nutritional deficiency, unspecified Status: Chronic (4) HTN (hypertension) ICD Codes: I10 - Essential (primary) hypertension Status: Chronic (5) Diabetes ICD Codes: E11.9 - Type 2 diabetes mellitus without complications Status: Chronic Consultants none Procedures none Brief History 76 y/o w female with hx HTN,hyperlipidemia,dm with recent low glucose and was on meds and may have been d/emily ,ckd stage4 on 05/13/17 was admitted for slurred speech related to low glucose ,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 Home health checked patient today and sent to er with elevated heart rate but did not take her metoprolol which in march was increased to 50 bid ,in ER heart rate has been stable . Patient under went lab work and has cr 2.1 at baseline but calcium level was at 13 which is new from review of old labs done 1 week or so ago. Appears a little dehydrated will give NS at 75cc/hr and follow up calcium levels . There has been no additional meds given since last admit in April. CBC/BMP: 05/28/17 0654 05/28/17 0654 Significant Findings Laboratory Tests Test 05/27/17 17:08 05/27/17 18:20 05/27/17 23:40 05/28/17 06:54 Platelet Count 500 TH/MM3 (150-450) Neutrophils (%) (Auto) 81.9 % (16.0-70.0) 77.5 % (16.0-70.0) Lymphocytes (%) (Auto) 6.5 % (9.0-44.0) 6.7 % (9.0-44.0) Lymphocytes # (Auto) 0.5 TH/MM3 (1.0-4.8) 0.4 TH/MM3 (1.0-4.8) Activated Partial Thromboplast Time 24.0 SEC (24.3-30.1) Blood Urea Nitrogen 31 MG/DL (7-18) 26 MG/DL (7-18) Creatinine 2.16 MG/DL (0.50-1.00) 1.77 MG/DL (0.50-1.00) Random Glucose 136 MG/DL (74-106) Albumin 2.4 GM/DL (3.4-5.0) 1.7 GM/DL (3.4-5.0) Calcium Level 13.2 MG/DL (8.5-10.1) 10.7 MG/DL (8.5-10.1) Aspartate Amino Transf (AST/SGOT) 39 U/L (15-37) Sodium Level 135 MEQ/L (136-145) Potassium Level 3.3 MEQ/L (3.5-5.1) 3.2 MEQ/L (3.5-5.1) Estimat Glomerular Filtration Rate 22 ML/MIN (>89) 28 ML/MIN (>89) Protein Corrected Calcium 13.0 MG/DL (8.5-10.1) Urine Turbidity HAZY (CLEAR) Urine Protein 100 mg/dL (NEG-TRACE) Urine Glucose (UA) 70 mg/dL (NEG) Urine Occult Blood TRACE (NEG) Urine Calcium Oxalate Crystals FEW /hpf (NONE) Urine Bacteria RARE /hpf (NONE) Red Blood Count 3.31 MIL/MM3 (4.00-5.30) Hemoglobin 10.2 GM/DL (11.6-15.3) Hematocrit 30.7 % (35.0-46.0) Monocytes (%) (Auto) 8.3 % (0.0-8.0) Eosinophils (%) (Auto) 5.7 % (0.0-4.0) Total Protein 4.9 GM/DL (6.4-8.2) Chloride Level 110 MEQ/L (98-107) PE at Discharge GENERAL: This is a poor-nourished, poor-developed patient, in no apparent distress. CARDIOVASCULAR: Regular rate and rhythm RESPIRATORY: Clear to auscultation. Breath sounds equal bilaterally. GASTROINTESTINAL: Abdomen soft, non-tender, nondistended. No guarding. MUSCULOSKELETAL: Extremities without clubbing, cyanosis, or edema. No joint tenderness, effusion, or edema noted. No calf tenderness. Negative Homans sign bilaterally. NEUROLOGICAL: Awake and alert. No focal. Motor and sensory grossly within normal limits. 3 out of 5 muscle left upper and lower extremities chronic. Normal speech. Hospital Course Hypercalcemia Calcium improving with IV hydration 05/28/[address] abdomen and pelvis reviewed and reveals: Large complex fluid density mass involving the left kidney with apparent thin cortical rim of cortical tissue consistent with a hydronephrotic sac. The right kidney is unremarkable. Enlarged uterus consistent appearance with Leiomyoma. Simple appearing 2.5 cm cyst in the left adnexa cyst. Calcified gallstone layering dependently in the gallbladder CKD (chronic kidney disease) stage 4, GFR 15-29 ml/min ckd stage4 appears stable based on last weeks labs will follow Poor nutrition may need dietary to help with nutrition also patient lives alone may need SNF Discussed with patient her recent admissions and declining ability to care for herself in her current state. Patient agrees to short-term SNF placement for rehabilitation and strengthening. Plan to discharge tomorrow to SNF HTN (hypertension) continue home medication Diabetes In hospital will use sliding scale with coverage Patient has not required insulin coverage while in hospital will DC on diabetic diet Pt Condition on Discharge: Stable Discharge Disposition: Discharge to SNF Discharge Instructions DIET: Follow Instructions for: Diabetic Diet Activities you can perform: Regular-No Restrictions Follow up Referrals: PCP Follow-up - [address] Carey Continued Medications: Aspirin (Aspirin) 81 Mg Chew 81 MG CHEW DAILY, TAB 0 Refills Cholecalciferol (Vitamin D-1000) 1,000 Unit Tab 2000 UNITS PO DAILY for Nutritional Supplement, #1 BOTTLE 0 Refills Losartan (Cozaar) 50 Mg Tab 50 MG PO DAILY for Blood Pressure Management, #30 TAB 0 Refills Metoprolol Tartrate (Lopressor) 50 Mg Tab 50 MG PO Q12HR for blood pressure, #60 TAB 0 Refills Nifedipine ER 24 HR (Nifedipine ER 24 HR) 30 Mg Tab 30 MG PO DAILY for blood pressure, #30 TAB 0 Refills Raloxifene (Raloxifene) 60 Mg Tab 60 MG PO DAILY for Chemotherapy Management, #30 TAB 0 Refills Rosuvastatin (Crestor) 40 Mg Tab 40 MG PO DAILY for Cholesterol Management, #30 TAB 0 Refills Negin Rowe May 29, 2017 08:56
--- NOTE | 2017-05-29 08:57 | HHI.DCPOC ---
Discharge Care Plan Diagnosis: (1) Hypercalcemia (2) Poor nutrition Goals to Promote Your Health * To prevent worsening of your condition and complications * To maintain your health at the optimal level Directions to Meet Your Goals Take your medications as prescribed Follow your dietary instruction Follow activity as directed Keep your appointments as scheduled Take your immunizations and boosters as scheduled If your symptoms worsen call your PCP, if no PCP go to Urgent Care Center or Emergency Room Smoking is Dangerous to Your Health. Avoid second hand smoke Call the 24-hour hour crisis hotline for domestic abuse at Negin Rowe May 29, 2017 08:57
[2017-05-29] MEDS ORDERED: POTASSIUM CHLORIDE 20 MEQ CONTROLLED RELEASE TAB PO ONE (09:00)
[2017-05-29] MEDS: RALOXIFENE HCL 60 MG TAB PO SCH (10:26)
== END 2017-05-29 14:12 | DRG 641 ==
LOC: NEPE 14:49 → NEDA 19:38 → NEPHCDU 20:33 → OBSVTOIN 21:14 → N04B 05-29 01:32
PROVIDERS: ADMIT Hospitalist; ATTEND Hospitalist
DX: E83.52 Hypercalcemia (principal); N18.4 Chronic kidney disease, stage 4 (severe); I69.354 Hemiplegia and hemiparesis following cerebral infarction affecting left non-dominant side; E11.22 Type 2 diabetes mellitus with diabetic chronic kidney disease; Z68.1 Body mass index [BMI] 19.9 or less, adult; J44.9 Chronic obstructive pulmonary disease, unspecified; I12.9 Hypertensive chronic kidney disease with stage 1 through stage 4 chronic kidney disease, or unspecified chronic kidney disease; K21.9 Gastro-esophageal reflux disease without esophagitis; E78.5 Hyperlipidemia, unspecified; E86.0 Dehydration; R63.4 Abnormal weight loss; K80.20 Calculus of gallbladder without cholecystitis without obstruction; Z87.891 Personal history of nicotine dependence
CPT/HCPCS: 71010; 74176; 80053; 81001; 82948; 83880; 84484; 85025; 85610; 85730; 93005; 94640; 94664; J7030